=== PATIENT | female | born 1945 | race Caucasian/White ===

== ENCOUNTER → 2022-11-12 10:48 | Outpatient (BNVA) | payer OTHER, SELFPAY | PROVIDERS: PCP Family Medicine Adult Medicine; Visit Provider Internal Medicine Cardiovascular Disease | DX: R07.9 Chest pain, unspecified (principal); I48.92 Unspecified atrial flutter; J44.9 Chronic obstructive pulmonary disease, unspecified; I31.39 Other pericardial effusion (noninflammatory); I50.30 Unspecified diastolic (congestive) heart failure; I10 Essential (primary) hypertension; I11.0 Hypertensive heart disease with heart failure; Z87.891 Personal history of nicotine dependence | CPT/HCPCS: 36415; 80048; 83880; 84443; 93005; 99205 ==

== ENCOUNTER 2022-11-16 15:46 | Outpatient (CLI) | payer OTHER, SELFPAY ==
--- NOTE | 2022-11-16 16:02 | XR_ITS ---
WS: [id number] Exam: XR lumbar spine f/e only [id number] Date/Time of Exam: 11/16/2022 4:02 PM Reason For Exam: Postlaminectomy No priors. There is posterior fusion of the spine extending from L3-L5. Pedicle screws and posterior rods are in place. There is also an anterior fusion plate at the L4-5 level. 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 Disc calcifications at multiple levels. Degeneration of the L1-2 disc. There is virtually no motion of the lumbar spine on flexion or extension views. No instability demonstrate d. IMPRESSION: 1. Posterior fusion extending from L3-L5. The fusion appears to be in satisfactory alignment and stab le. Anterior fusion plate also seen at the L4-5 level. 2. 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 Ad ditional chronic findings as above.
== END 2022-11-16 15:47 | disposition home or self-care (01) ==
PROVIDERS: PCP Family Medicine Adult Medicine; Visit Provider Nurse Practitioner
DX: M96.1 Postlaminectomy syndrome, not elsewhere classified (principal); Z98.1 Arthrodesis status; M43.26 Fusion of spine, lumbar region
CPT/HCPCS: 72120

== ENCOUNTER 2022-12-17 14:39 | Outpatient (CLI) | payer MEDICARE, OTHER, SELFPAY ==
--- NOTE | 2022-12-17 15:00 | USCV_ITS ---
Venice Sharpe Age: 76 Gender: F : 1945 Exam Date: 12/17/2022 14:55 Ordering Phys: Samina Levine MD ([email or web address]) Technologist: Aidan Nazario Exam Location: [facility] [place] Indication: htn BP: 110 / 65 HR: 74 Rhythm: Sinus Technical Quality: Adequate MEASUREMENTS (Male / Female) Normal Values 2D ECHO LV Diastolic Diameter PLAX 2.9 cm 4.2 - 5.9 / 3.9 - 5.3 cm LV Systolic Diameter PLAX 1.6 cm IVS Diastolic Thickness 1.3 cm 0.6 - 1.0 / 0.6 - 0.9 cm IVS Systolic Thickness 1.7 cm LVPW Diastolic Thickness 1.5 cm 0.6 - 1.0 / 0.6 - 0.9 cm LVPW Systolic Thickness 1.1 cm LVOT Diameter 2.0 cm LV Ejection Fraction 2D Teich 79.4 % LV Ejection Fraction MOD 2C 80.0 % LV Ejection Fraction 2C AL 79.8 % LA Diameter 3.5 cm IVC Diameter 2.4 cm M-MODE Aortic Annulus Diameter 2.8 cm LA Ao Ratio MM 1.2 MV E Point Septal Separation 0.7 cm DOPPLER AV Peak Velocity 183.0 cm/s LVOT Peak Velocity 151.0 cm/s AV Area Cont Eq vti 3.8 cm squared AV Area Cont Eq pk 2.6 cm squared MV Area PHT 2.5 cm squared Mitral E to A Ratio 1.1 MV E' Velocity 47.5 cm/s Mitral E to MV E' Ratio 11.0 Mitral E to LV E' Lateral Ratio 11.1 Mitral E to LV E' Septal Ratio 11.0 TR Peak Velocity 387.0 cm/s TR Peak Gradient 59.9 mmHg TV Peak E Velocity 143.0 cm/s Right Atrial Pressure 15.0 mmHg Pulmonary Artery Systolic Pressu 74.9 mmHg RV Acceleration Time 0.1 s FINDINGS Left Ventricle Normal left ventricular size and systolic function, EF 75 %. Mild to moderate concentric left-ventricular hypertrophy Right Ventricle The right ventricle is normal in size and function. Right Atrium The right atrium is normal in size. Left Atrium The left atrium is normal in size. Mitral Valve Trace mitral valve regurgitation. Thickened mitral valve. Aortic Valve Structurally normal aortic valve without significant sclerosis or stenosis. There is no aortic regurgitation. Tricuspid Valve Trace to mild tricuspid valve regurgitation. Estimated pulmonary artery peak systolic pressure 75mmHg Pulmonic Valve Mild pulmonary valve regurgitation. Pericardium Normal pericardium without effusion. Aorta Normal ascending aorta dimension. IVC Dilated IVC with decreased respiratory variation. CONCLUSIONS Normal left ventricular size and systolic function, EF 75 %. Mild to moderate concentric left-ventricular hypertrophy. Trace mitral valve regurgitation. Thickened mitral valve. Trace to mild tricuspid valve regurgitation. Severe pulmonary hypertension with estimated pulmonary artery peak systolic pressure of 75 mm of Hg. Mild pulmonary valve regurgitation. There is no pericardial effusion. There are no intracardiac masses. No similar previous studies are available for comparison Dr Samina Levine MD FACC (Electronically Signed) Final Date: 17 December 2022 18:18 S
== END 2022-12-17 14:40 | disposition home or self-care (01) ==
PROVIDERS: PCP Family Medicine Adult Medicine; Visit Provider Internal Medicine Cardiovascular Disease
DX: R06.09 Other forms of dyspnea (principal); I51.7 Cardiomegaly; I37.1 Nonrheumatic pulmonary valve insufficiency
CPT/HCPCS: 93306

== ENCOUNTER → 2022-12-28 16:37 | Outpatient (BNVA) | payer MEDICARE, OTHER, SELFPAY | PROVIDERS: PCP Family Medicine Adult Medicine; Visit Provider Internal Medicine Pulmonary Disease | DX: J30.2 Other seasonal allergic rhinitis (principal); R06.02 Shortness of breath; I31.39 Other pericardial effusion (noninflammatory); Z87.891 Personal history of nicotine dependence | CPT/HCPCS: 36415; 82785; 85025; 86003 ==

== ENCOUNTER 2023-04-19 13:27 | Outpatient (CLI) | payer MEDICARE, OTHER, SELFPAY ==
--- NOTE | 2023-04-19 14:00 | CT_ITS ---
WS: [id number] LDCT LUNG CANCER SCREENING HISTORY: Cancer Screen TECHNIQUE: Axial imaging performed from the apices to 1 cm below the costophrenic angles. Coronal and sagittal reformats are submitted with axial MIP series. All CT scans at [facility] use at least one of these dose optimization techniques: automated exposure control; mA and/or kV adjustment per patient size (includes targeted exams where dose is matched to clinical indication); or iterativ e reconstruction. DLP: 51.17 mGy.cm DIvol: Mean CTDIvol: 0.70 (mGy) COMPARISON: None available. Diagnostic quality: Satisfactory Lungs: 5 mm pleural tag posterior LEFT upper lobe. 4 mm noncalcified nodule in the lingula. Thin line ar areas of atelectasis in the lower lung alcantara bilaterally. There is mild breathing motion artifact . Moderate mucus in the posterior trachea. Heart: Moderate cardiomegaly.. Other findings: Moderate atherosclerosis aorta. Pulmonary artery is large. No adenopathy seen on this unenhanced exam. Lymph nodes would be difficult to exclude completely. Cystic mass upper pole RIGHT kidney is incompletely visualized. Thoracic curvature and scoliosis. No destructive bone lesions. Sybil or lumbar spine fusion noted on the grounding engineer localizer. IMPRESSION: CT/CT lung screening [id number] LUNG-RADS: 2-Benign Appearance or Behavior FOLLOW UP: 12 Month: Continue annual screening with LDCT OTHER FINDINGS (S MODIFIER): None.
== END 2023-04-19 13:28 | disposition home or self-care (01) ==
LOC: RAD 13:27
PROVIDERS: PCP Family Medicine Adult Medicine; Visit Provider Internal Medicine Pulmonary Disease
DX: Z12.2 Encounter for screening for malignant neoplasm of respiratory organs (principal); Z87.891 Personal history of nicotine dependence; R91.1 Solitary pulmonary nodule; J98.11 Atelectasis
CPT/HCPCS: 71271

== ENCOUNTER 2023-04-21 13:32 | Outpatient (CLI) | payer MEDICARE, OTHER, SELFPAY ==
[2023-04-21 13:44] VITALS: PULSE 65; RESP 20
[2023-04-21] MEDS: albuterol 2.5 mg/3 mL Neb INHALATION (13:44)
[2023-04-21 13:48] VITALS: PULSE 62
== END 2023-04-21 13:33 | disposition home or self-care (01) ==
LOC: RT 13:33
PROVIDERS: PCP Family Medicine Adult Medicine; Visit Provider Internal Medicine Pulmonary Disease
DX: J43.1 Panlobular emphysema (principal); R94.2 Abnormal results of pulmonary function studies
CPT/HCPCS: 94060; 94729; J7613

== ENCOUNTER 2023-05-07 16:12 | Emergency (ER) | payer MEDICARE, OTHER, SELFPAY ==
--- NOTE | 2023-05-07 16:14 | XRR_ITS ---
PROCEDURE INFORMATION: Exam: XR Left Knee Exam date and time: 05/07/2023 4:49 PM Age: 77 years old Clinical indication: Pain; Knee; Left TECHNIQUE: Imaging protocol: Radiologic exam of the left knee. Views: 3 views. COMPARISON: No relevant prior studies available. FINDINGS: Bones/joints: Osseous structures are intact. Negative for fracture. Mild DJD centered in the medial compartment. Partially visualized intramedullary shreya noted in the femur. Soft tissues: Normal. XR/XR knee LT 3V* [id number] IMPRESSION: No acute findings. Mild DJD centered in the medial compartment.
[2023-05-07 16:19] VITALS: BP 196/73; PULSE 92; RESP 17; TEMP 36.6; O2SAT 90; BMI 18.3
--- NOTE | 2023-05-07 16:57 | W.ED.EXTPRO ---
HPI - Extremity Problem General: Chief complaint: Extremity Injury, Lower Stated complaint: left knee pains Time Seen by Provider: 05/07/23 16:33 Source: patient Mode of arrival: ambulatory Limitations: no limitations History of Present Illness: 77-year-old female states that she had stood up today and felt a pop in her left knee and she has had pain in the left knee since then. States quite painful to try to ambulate she denies any hip or ankle pain. She did not fall. She rates her pain a 4 out of 10 currently. Associated symptoms: Deny chest pain, fever(s) or rash Review of Systems Const: Denies: fever(s) or chills ENMT: Denies: throat pain or dental pain Card: Denies: chest pain Resp: Denies: dyspnea GI: Denies: abdominal pain, nausea, vomiting or diarrhea Musc: Reports: extremity pain; Denies: neck pain or back pain Skin/Breast: Denies: rash Neuro: Denies: headache(s) Psych: Denies: depression PFSH ED PFSH: Medical History Elevated blood pressure reading in office with white coat syndrome, with diagnosis of hypertension CKD (chronic kidney disease) stage 3, GFR 30-59 ml/min Chronic low back pain with right-sided sciatica [facility], Dr. Falcon Hypertension COPD (chronic obstructive pulmonary disease) Asthma Anxiety Oxygen dependent Surgical History History of hip surgery History of ankle surgery History of back surgery Hx of hysterectomy Family History Father No problems noted. Mother Stroke Social History Smoking and tobacco/nicotine status: former use of tobacco/nicotine Quit status (tobacco/nicotine): has quit using Year quit tobacco: 2021 Former quit date comment: 1ppd X 60 years Second hand smoke exposure: No Alcohol intake: former Substance/Drug Use: never Physical Exam Const: COMMON NORMALS: no acute distress, patient oriented x3 and healthy appearing HENMT: COMMON NORMALS: normocephalic and atraumatic HEAD & SCALP: normocephalic and atraumatic Neck/C-Spine: COMMON NORMALS: full ROM and supple Chest: COMMONS NORMALS: normal inspection of the chest Resp: COMMON NORMALS: normal respiratory effort Extremity: COMMON NORMALS: full ROM NARRATIVE EXTREMITY EXAM: Tenderness over left knee no obvious deformity has full range of motion. Neuro: COMMON NORMALS: patient oriented x3, moves all extremities and no focal motor deficits Psych: COMMON NORMALS: mental status grossly normal, Normal thought process present and cooperative THOUGHT PROCESS: Normal thought process present Skin: COMMON NORMALS: no rashes or lesions noted and no wounds GENERAL SKIN EXAM: no rashes or lesions noted Course Vital Signs: Vital signs: Vital Signs Temperature 98 F 05/07/23 16:19 Pulse Rate 92 05/07/23 16:19 Respiratory Rate 17 05/07/23 16:19 Blood Pressure 196/73 05/07/23 16:19 Pulse Oximetry 90 05/07/23 16:19 Oxygen Delivery Me thod Nasal Cannula 05/07/23 16:19 MDM - Extremity (Nontraumatic) Medical Decision Making Patient presents here with left knee pain is likely knee sprain x-ray here showed no fractures exam is benign she is stable for discharge she is follow-up with PCP and return if worsening. She understands agrees to plan. Medical Records I reviewed the patient's medical records. Lab Data I reviewed the patient's lab results. Radiology Impressions Knee X-Ray 05/07/23 16:14 IMPRESSION: No acute findings. Mild DJD centered in the medial compartment. All radiology interpretation(s) finalized by discharge Discharge Plan Discharge Patient Disposition: Home Clinical Impression: Left knee pain Qualifiers: Chronicity: acute Qualified Code(s): M25.562 - Pain in left knee Condition: Stable Prescriptions: No Action cholecalciferol (vitamin D3) 250 mcg (10,000 unit) capsule 250 mcg PO DAILY cyanocobalamin (vitamin B-12) 250 mcg lozenge 250 mcg PO DAILY aspirin 81 mg tablet,delayed release (DR/EC) 81 mg PO DAILY hydrocodone-acetaminophen 10-325 mg tablet 1 tab PO Q6H PRN lisinopril 40 mg tablet 40 mg PO DAILY Qty: 30 5RF Breztri Aerosphere 160-9-4.8 mcg/actuation HFA aerosol inhaler 2 inh inhalation BID fluticasone propionate [Flonase Allergy Relief] 50 mcg/actuation spray,suspension 1 spray intranasal DAILY Qty: 16 6RF Rx Instructions: administer into each nostril guaifenesin 400 mg tablet 400 mg PO TID Qty: 30 0RF (DME) oxygen at 2/L min See Rx Instructions .Route .MEDSUPPLY Qty: 1 11RF Rx Instructions: As directed diazepam 5 mg tablet 5 mg PO ONCE PRN (Reason: procedure) Qty: 2 0RF Rx Instructions: Take 1 hour before the procedure and may repeat 30 to 45 minutes later (DME) Oxygen NC 2-3 L/min See Rx Instructions .Route .MEDSUPPLY Qty: 1 0RF Rx Instructions: As directed furosemide [Lasix] 20 mg tablet 20 mg PO DAILY Qty: 90 3RF potassium chloride 8 mEq tablet extended release 8 meq PO DAILY Qty: 90 3RF amlodipine 10 mg tablet 10 mg PO DAILY Qty: 90 1RF metoprolol tartrate 25 mg tablet 25 mg PO BID 30 Days Qty: 180 3RF prazosin 1 mg capsule 1 mg PO BID Qty: 60 2RF Discharge Orders: Discharge ED (Routine); Ordered 05/07/23 Ordered By: Preethi Springer Referrals: Jj aNranjo MD [Primary Care Provider] - Discharge Diet: Advance as tolerated Discharge Activity: Resume usual activity Patient Instructions: Knee Pain (ED) Coding Level of Care Code ED Machine Stuffer Automatic for Dhruv Benson
[2023-05-07] MEDS: HYDROcodone-acetaminophen 5-325 mg Tablet 1 TAB PO (17:26)
[2023-05-07 17:49] VITALS: BP 184/74; PULSE 82; RESP 16; O2SAT 91
--- NOTE | 2023-05-10 08:52 | DCPLANNER ---
Message was sent to ortho on 05/10/23 at 0822. Clinic to contact patient.
== END 2023-05-07 17:50 | disposition home or self-care (01) ==
PROVIDERS: Emergency Provider Emergency Medicine; PCP Family Medicine Adult Medicine
DX: M25.562 Pain in left knee (principal); Z79.82 Long term (current) use of aspirin; Z87.891 Personal history of nicotine dependence; I12.9 Hypertensive chronic kidney disease with stage 1 through stage 4 chronic kidney disease, or unspecified chronic kidney disease; N18.30 Chronic kidney disease, stage 3 unspecified; J44.9 Chronic obstructive pulmonary disease, unspecified; Z99.81 Dependence on supplemental oxygen
CPT/HCPCS: 73562; 99283

== ENCOUNTER 2023-05-17 06:00 | Outpatient (CLI) | payer MEDICARE, OTHER, SELFPAY | END 2023-05-17 23:59 | disposition home or self-care (01) | LOC: SPT 05-18 08:30 | PROVIDERS: PCP Family Medicine Adult Medicine; Visit Provider Specialist | DX: Z46.89 Encounter for fitting and adjustment of other specified devices (principal); S82.143D Displaced bicondylar fracture of unspecified tibia, subsequent encounter for closed fracture with routine healing; X58.XXXD Exposure to other specified factors, subsequent encounter | CPT/HCPCS: 27532; 97760; 99204; L1832 ==

== ENCOUNTER → 2023-05-17 14:08 | Outpatient (BNVA) | payer MEDICARE, OTHER, SELFPAY | PROVIDERS: PCP Family Medicine Adult Medicine; Referring Provider Emergency Medicine; Visit Provider Specialist | DX: S82.122A Displaced fracture of lateral condyle of left tibia, initial encounter for closed fracture; X58.XXXA Exposure to other specified factors, initial encounter; Z46.89 Encounter for fitting and adjustment of other specified devices; S82.143D Displaced bicondylar fracture of unspecified tibia, subsequent encounter for closed fracture with routine healing; X58.XXXD Exposure to other specified factors, subsequent encounter | CPT/HCPCS: 27532; 73560; 73562; 73565; 97760; 99204; L1832 ==

== ENCOUNTER 2023-05-19 09:43 | Outpatient (CLI) | payer MEDICARE, OTHER, SELFPAY ==
--- NOTE | 2023-05-19 10:00 | CT_ITS ---
WS: [id number] CT LEFT KNEE, NONCONTRAST. HISTORY: left tibial plateau fracture Technique: All CT scans at [facility] use at least one of these dose optimization techniques: automated exposure control; mA and/or kV adjustment per patient size (includes targeted exams where dose is matched to clinical indication); or iterative reconstruction. DLP: 438.50 mGy.cm COMPARISON: 05/17/2023 Diffuse osteopenia. Nonhealed, acute lateral tibial plateau fracture. Tibial plateau fracture is depr essed by approximately 6 mm. Fracture line extends along the lateral tibial plateau into the metaphys is. No significant displacement. Medial plateau is intact. Femoral condyles are intact. There is a distal intramedullary femoral shreya. Moderate size suprapatellar joint effusion is a small a mount of surrounding edema. Proximal fibula is intact. IMPRESSION: 1. Acute, minimally depressed lateral tibial plateau fracture. Mildly comminuted fracture depressed 6 mm. 2. No additional fractures. 3. Moderate joint effusion.
== END 2023-05-19 09:44 | disposition home or self-care (01) ==
LOC: RAD 09:43
PROVIDERS: PCP Family Medicine Adult Medicine; Visit Provider Specialist
DX: S82.142A Displaced bicondylar fracture of left tibia, initial encounter for closed fracture (principal); X58.XXXA Exposure to other specified factors, initial encounter
CPT/HCPCS: 73700

== ENCOUNTER → 2023-06-28 15:04 | Outpatient (BNVA) | payer MEDICARE, OTHER, SELFPAY | PROVIDERS: PCP Family Medicine Adult Medicine; Visit Provider Specialist | DX: S82.122D Displaced fracture of lateral condyle of left tibia, subsequent encounter for closed fracture with routine healing; X58.XXXD Exposure to other specified factors, subsequent encounter | CPT/HCPCS: 73562; 99024 ==

== ENCOUNTER 2023-07-09 15:35 | Outpatient (CLI) | payer MEDICARE, OTHER, SELFPAY ==
--- NOTE | 2023-07-09 16:30 | CT_ITS ---
WS: [id number] NONCONTRAST CT LEFT KNEE TECHNIQUE: Noncontrast CT LEFT knee with coronal and sagittal reformatted images. CLINICAL INFORMATION: pain COMPARISON: 05/19/2023 DLP: 457.[address] scans at [facility] use at least one of these dose optimization techniques: automated e xposure control; mA and/or kV adjustment per patient size (includes targeted exams where dose is matc hed to clinical indication); or iterative reconstruction. FINDINGS: Osteopenia. Distal femoral shreya. Hypertrophic patella. Moderate to advanced tricompartmental arthritis . Previously described joint effusion has improved. Trace residual joint effusion. Again seen is the depressed lateral tibial plateau fracture with some evidence of healing. Small fracture clefts are p ersistent but less prominent today. Tibial plateau depression measures approximately 6 mm unchanged. Associated sclerosis in the posterolateral tibial plateau. Fibula head is normal in appearance. IMPRESSION: 1. Again seen is the posterior lateral tibial plateau fracture with 6 mm of depression which is stab le. 2. Some evidence of interval healing although incomplete compared to previous. Visualized fracture c lefts are persistent but slightly less distinct today. Associated sclerosis in the posterolateral tib ial plateau. 3. Improved joint effusion. 4. No other significant changes.
== END 2023-07-09 15:36 | disposition home or self-care (01) ==
LOC: RAD 15:35
PROVIDERS: PCP Family Medicine Adult Medicine; Visit Provider Specialist
DX: S82.142A Displaced bicondylar fracture of left tibia, initial encounter for closed fracture (principal); M25.462 Effusion, left knee; X58.XXXA Exposure to other specified factors, initial encounter
CPT/HCPCS: 73700

== ENCOUNTER → 2023-07-20 14:44 | Outpatient (BNVA) | payer MEDICARE, OTHER, SELFPAY | PROVIDERS: PCP Family Medicine Adult Medicine; Visit Provider Student in an Organized Health Care Education/Training Program | DX: S82.123A Displaced fracture of lateral condyle of unspecified tibia, initial encounter for closed fracture (principal); X58.XXXA Exposure to other specified factors, initial encounter; Z79.899 Other long term (current) drug therapy | CPT/HCPCS: 99213 ==

== ENCOUNTER → 2023-09-15 14:56 | Outpatient (BNVA) | payer MEDICARE, OTHER, SELFPAY | PROVIDERS: PCP Family Medicine Adult Medicine; Visit Provider Nurse Practitioner | DX: S82.122A Displaced fracture of lateral condyle of left tibia, initial encounter for closed fracture; X58.XXXA Exposure to other specified factors, initial encounter | CPT/HCPCS: 73562; 99213 ==

== ENCOUNTER → 2024-02-03 11:06 | Outpatient (BNVA) | payer MEDICARE, OTHER, SELFPAY | PROVIDERS: PCP Family Medicine Adult Medicine; Visit Provider Internal Medicine Cardiovascular Disease | DX: R06.02 Shortness of breath (principal) | CPT/HCPCS: 36415; 80048; 83880; 99214 ==

== ENCOUNTER 2024-02-18 16:08 | Inpatient (IN) | payer MEDICARE, OTHER, SELFPAY ==
[2024-02-18] VITALS (12 sets, daily range): BP systolic 103–150; BP diastolic 36–86; PULSE 57–73; RESP 13–31; TEMP 36.4–36.7; O2SAT 89–99
--- NOTE | 2024-02-18 16:47 | XRR_ITS ---
PROCEDURE INFORMATION: Exam: XR Chest Exam date and time: 02/18/2024 5:20 PM Age: 78 years old Clinical indication: Shortness of breath; Patient HX: SOB; AMS; Afib; Chf TECHNIQUE: Imaging protocol: Radiologic exam of the chest. Views: 1 view. COMPARISON: CT lung screening [id number] 04/19/2023 1:47 PM FINDINGS: Lungs: Left basilar scarring. Calcified granuloma noted in the left mid lung. No consolidation. Pleural spaces: No pleural effusion. No pneumothorax. Heart/Mediastinum: No cardiomegaly. Bones/joints: Visualized osseous structures are intact. XR/XR chest 1V portable [id number] IMPRESSION: No acute findings.
--- NOTE | 2024-02-18 16:51 | ED_ITS ---
HPI - SOB/Dyspnea 2 General: Chief Complaint: Shortness of Breath/Dyspnea Stated Complaint: SOB, AMS Time Seen by Provider: 02/18/24 16:43 History of Present Illness: HPI Narrative: Patient comes to the ER with reports of having a hard time getting woken up this morning. Having weakness and jerking of extremities. Patient states that she took gabapentin 300 mg last night for the first time for restless leg. Had symptoms this morning. Family is at bedside and a also stated that she been taken off her potassium and had her Lasix doubled and also had her oxygen increase from 3.5 L to 6 L because of desaturation with activities. Patient goes sees Dr. Neely at [facility]. Related Data Home Medications Medication Instructions Recorded Confirmed aspirin 81 mg tablet,delayed 81 mg PO DAILY 11/06/22 09/16/23 release cholecalciferol (vitamin D3) 250 250 mcg PO DAILY 11/06/22 09/16/23 mcg (10,000 unit) capsule cyanocobalamin (vitamin B-12) 250 250 mcg PO DAILY 11/06/22 09/16/23 mcg lozenges hydrocodone 10 mg-acetaminophen 1 tab PO Q6H PRN 11/06/22 09/16/23 325 mg tablet budesonide 160 mcg-glycopyr 9 2 inh inhalation BID 12/28/22 09/16/23 mcg-formot 4.8 mcg/actuation HFA inhaler (Breztri Aerosphere) prazosin 1 mg capsule 1 mg PO DAILY PRN 08/03/23 09/16/23 Previous Rx's Medication Instructions Recorded Oxygen NC 2-3 L/min #1 ea 11/12/22 oxygen at 2/L min #1 ea 12/09/22 metoprolol tartrate 25 mg tablet 25 mg PO BID 30 days #180 tabs 03/30/23 GELY KNEE BRACE #1 ea 05/17/23 Wheel Chair #1 ea 05/21/23 guaifenesin 400 mg tablet 400 mg PO TID PRN cough/congestion 06/22/23 #30 tabs lisinopril 40 mg tablet 40 mg PO DAILY High blood pressure 06/29/23 #90 tabs Hinged Knee Brace #1 ea 07/20/23 [id number]-rxeiossmr-sodium 1 ea mucous membrane .q4 PRN dry 08/03/23 bicarbonate mucosal gel mouth #100 mL metronidazole 500 mg tablet 500 mg PO BID diarrhea #14 tabs 09/17/23 potassium chloride 8 mEq 8 meq PO DAILY #90 tabs 11/26/23 tablet,extended release amlodipine 10 mg tablet 10 mg PO DAILY high blood pressure 12/09/23 #90 tabs furosemide 20 mg tablet (Lasix) 20 mg PO DAILY #90 tabs 12/09/23 Allergies Allergy/AdvReac Type Severity Reaction Status Date / Time No Known Allergies Allergy Verified 02/18/24 16:23 Review of Systems 2 General: Reports: 10 or more systems reviewed and unremarkable except in HPI and below PFSH ED 2 PFSH: Medical History Asymptomatic bradycardia C. difficile diarrhea Bilateral shoulder pain CKD (chronic kidney disease) stage 3, GFR 30-59 ml/min Chronic low back pain with right-sided sciatica [facility], Dr. Falcon Hypertension COPD (chronic obstructive pulmonary disease) Asthma Anxiety Oxygen dependent Surgical History History of hip surgery History of ankle surgery History of back surgery Hx of hysterectomy Family History Father No problems noted. Mother Stroke Social History Smoking and tobacco/nicotine status: former use of tobacco/nicotine Quit status (tobacco/nicotine): has quit using Year quit tobacco: 2021 Former quit date comment: 1ppd X 60 years Second hand smoke exposure: No Alcohol intake: former Substance/Drug Use: never Physical Exam 2 Const: COMMON NORMALS: no acute distress, average body habitus, patient oriented x3, no limitations, healthy appearing, alert and well nourished HENMT: COMMON NORMALS: normocephalic, atraumatic, hearing grossly normal bilaterally, external ears normal, Normal external nose present and moist oral mucous membranes HEAD & SCALP: normocephalic and atraumatic NOSE: Normal external nose present EXTERNAL EAR: Yes external ears normal Eye: COMMON NORMALS: Equal, round and reactive pupils present, EOMs intact bilaterally, conjunctivae normal and no scleral icterus CONJUNCTIVA: Yes conjunctivae normal PUPIL: Yes Equal, round and reactive pupils present Neck/C-Spine: COMMON NORMALS: no JVD Chest: COMMONS NORMALS: normal inspection of the chest and normal palpation of entire chest wall Resp: COMMON NORMALS: normal respiratory effort, No retractions and No use of accessory muscles; negative for clear to auscultation bilaterally (Clear with decreased breath sounds bilateral) AUSCULTATION: not clear to auscultation bilaterally (Clear with decreased breath sounds bilateral) Cardio: COMMON NORMALS: no JVD, regular rate, regular rhythm, S1 normal heart sound present, S2 normal heart sound present, No gallops present (Cardio), No clicks present (Cardio), No murmurs present (Cardio) and No rub (Cardio) R ATE: regular rate RHYTHM: regular rhythm HEART SOUNDS: S1 normal heart sound present and S2 normal heart sound present GI: COMMON NORMALS: Normal to inspection, nondistended, normoactive bowel sounds present, Soft to palpation, non-tender, No hepatosplenomegaly present and no masses PALPATION: Yes Soft to palpation and Yes No hepatosplenomegaly present Extremity: NARRATIVE EXTREMITY EXAM: Negative bilateral pretibial edema Neuro: COMMON NORMALS: patient oriented x3 SENSORIUM/ORIENTATION: Yes alert Course 2 Vital Signs: Vital signs: Vital Signs Temperature 97.6 F 02/18/24 16:12 Pulse Rate 65 02/18/24 20:00 Respiratory Rate 20 H 02/18/24 20:00 Blood Pressure 126/45 02/18/24 20:00 Pulse Oximetry 95 02/18/24 20:00 Oxygen Delivery Me thod Nasal Cannula 02/18/24 20:00 Oxygen Flow Rate 6 02/18/24 20:00 MDM - SOB/Dyspnea Medical Decision Making Cussed case with family Dr. Tenorio we will admit patient to [facility] for additional hydration, we will obtain a D-dimer and a chest abdomen pelvis noncontrast CT scan pending those results before admission. Elevated BNP at 1383, BUN/creatinine 67 and 4.4, potassium 6.0, Medical Records I reviewed the patient's medical records. Lab Data I reviewed the patient's lab results. 02/18/24 17:30 02/18/24 21:07 Labs/Radiology: Radiology Impressions Chest X-Ray 02/18/24 16:47 IMPRESSION: No acute findings. Chest/Abdomen/Pelvis CT 02/18/24 20:12 IMPRESSION: 1. Coronary artery and aortic atherosclerotic calcifications. 2. Cardiomegaly. 3. Emphysematous changes. 4. Right lower lobe 17 mm somewhat focal nodular density increase compared IMPRESSION: 1. Prominent fluid in the stomach and small bowel, please correlate for a gastroenteritis. 2. Lumbar spine surgical hardware. 3. Left proximal femur surgical hardware. 4. Bilateral punctate nonobstructing renal calyceal stones. 5. Bilateral renal cysts, negative for follow-up advised. 6. Proximal renal artery atherosclerotic disease bilaterally with 60-70% luminal narrowing. COMMENTS: Consistent with the [employer]'s Incidental Findings Committee white paper (J Am Cassidy Radiol 2018): Any incidental renal lesion less than 1 cm or classified as too small to characterize, or any incidental cystic renal lesion characterized as simple-appearing, is likely benign. No follow-up imaging is recommended for these lesions per consensus recommendations based on imaging criteria. Laboratory Results WBC 7.36 10^3/uL (3.29-11.43) 02/18/24 17:30 RBC 2.91 10^6/uL (3.85-5.65) L 02/18/24 17:30 Hgb 8.40 g/dL (11.27-16.99) L 02/18/24 17:30 Hct 30.4 % (36-47) L 02/18/24 17: MCV 104.5 fl (85-98) H 02/18/24 17:30 MCH 28.9 pg (27-33) 02/18/24 17:30 MCHC 27.6 g/dL (30-55) L 02/18/24 17:30 RDW 14.9 % (12.1-15.1) 02/18/24 17:30 Plt Count 149 10^3/cmm (157-399) L 02/18/24 17:30 MPV 11.3 fL (7.4-10.4) H 02/18/24 17:30 Neut % (Auto) 87.1 % 02/18/24 17:30 Lymph % (Auto) 2.6 % 02/18/24 17:30 [place] % (Auto) 7.1 % 02/18/24 17:30 Eos % (Auto) 2.2 % 02/18/24 17:30 Baso % (Auto) 0.3 % 02/18/24 17:30 Neut # (Auto) 6.42 10^3/uL (1.8-7.7) 02/18/24 17:30 Lymph # (Auto) 0.2 10^3/uL (0.8-4.8) L 02/18/24 17:30 [place] # (Auto) 0.5 10^3/uL (0.2-0.9) 02/18/24 17:30 Eos # (Auto) 0.2 10^3/uL (0.0-0.8) 02/18/24 17:30 Baso # (Auto) 0.0 10^3/uL (0.0-0.1) 02/18/24 17:30 Nucleated RBC % (auto) 0 % 02/18/24 17:30 Nucleated RBCs # 0.0 /100WBC 02/18/24 17:30 APTT 29.3 SECONDS (23.9-36.7) 02/18/24 17:30 D-Dimer 7.99 ug/mLFEU (0-0.59) H 02/18/24 17:30 Sodium 141 mmol/L (136-145) 02/18/24 17:30 Potassium 6.0 mmol/L (3.5-5.1) H 02/18/24 17:30 Chloride 105 mmol/L (98-107) 02/18/24 17:30 Carbon Dioxide 29 mmol/L (22-29) 02/18/24 17:30 Anion Gap 13.0 (5-19) 02/18/24 17:30 BUN 67 mg/dL (8-23) H 02/18/24 17:30 Creatinine 4.4 mg/dL (0.5-0.9) H 02/18/24 17:30 GFR Calculation Not Reportable 02/18/24 17:30 Glucose 46 mg/dL (65-115) L 02/18/24 21:07 POC Glucose 177 mg/dL (70-110) H 02/18/24 21:28 Calculated Osmolality 314 mOsm/kg (285-295) H 02/18/24 17:30 Lactic Acid 1.3 mmol/L (0.5-2.2) 02/18/24 17:30 Calcium 10.0 mg/dL (8.5-10.5) 02/18/24 17:30 Magnesium 2.0 mg/dL (1.7-2.3) 02/18/24 17:30 Total Bilirubin 0.2 mg/dL (0.15-1.2) 02/18/24 17:30 AST 9 U/L (0-32) 02/18/24 17:30 ALT 6 U/L (0-33) 02/18/24 17:30 Alkaline Phosphatase 59 U/L (35-105) 02/18/24 17:30 Troponin T Baseline 60 ng/L (0-10) H 02/18/24 17:30 Troponin T 120 Minute 52.27 ng/L (0-10) H 02/18/24 19:26 Delta Troponin T -7.73 ABS# (0-10) L 02/18/24 19:26 NT-Pro-B Natriuret Pep 1383 pg/mL (0-450) H 02/18/24 17:30 Total Protein 6.3 g/dL (6.6-8.7) L 02/18/24 17:30 Albumin 3.9 g/dL (3.5-5.2) 02/18/24 17:30 Globulin 2.4 g/dL (1.3-4.6) 02/18/24 17:30 Procalcitonin 0.20 ng/mL (0-0.5) 02/18/24 17:30 All radiology interpretation(s) finalized by discharge Discharge Plan Discharge Patient Disposition: Admitted As Inpatient Clinical Impression: Acute hyperkalemia, Acute and chronic respiratory failure with hypoxia Acute on chronic renal failure Qualifiers: Acute renal failure type: unspecified Chronic kidney disease stage: unspecified stage Qualified Code(s): N17.9 - Acute kidney failure, unspecified Condition: Stable Coding Level of Care Code ED Type Disk Quality Control Supervisor for Dhruv Benson
[2024-02-18 17:39] LABS: Basophils % 0.3 %; Eosinophils # 0.2 10^3/uL (0.0-0.8); Eosinophils % 2.2 %; Hematocrit 30.4 % (36-47); Lymphocytes # 0.2 10^3/uL (0.8-4.8); Lymphocytes % 2.6 %; Mean Corpuscular HGB Conc 27.6 g/dL (30-55); Mean Corpuscular Hemoglobin 28.9 pg (27-33); Mean Corpuscular Volume 104.5 fl (85-98); Mean Platelet Volume 11.3 fL (7.4-10.4); Monocytes # 0.5 10^3/uL (0.2-0.9); Monocytes % 7.1 %; Neutrophils # 6.42 10^3/uL (1.8-7.7); Neutrophils % 87.1 %; Nucleated Red Blood Cells % 0 %; Platelet Count 149 10^3/cmm (157-399); Red Blood Count 2.91 10^6/uL (3.85-5.65); Red Cell Distribution Width 14.9 % (12.1-15.1); White Blood Count 7.36 10^3/uL (3.29-11.43)
--- NOTE | 2024-02-18 17:46 | ECG_ITS ---
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 Measurements Intervals [place] Rate: 74 P: 0 TX: 0 QRS: 43 QRSD: 92 T: 89 QT: 365 QTc: 405 Interpretive Statements ATRIAL FIBRILLATION Q WAVES IN INFERIOR LEADS WITH NON SPECIFIC ST T WAVE CHANGES IN INFERIOR LEADS Electronically Signed On 02-19-2024 10:26:04 GASOLINE PUMP MECHANIC by Rufino Franklin M.D. [id number]
[2024-02-18 18:03] LABS: Alanine Aminotransferase 6 U/L (0-33); Albumin Level 3.9 g/dL (3.5-5.2); Alkaline Phosphatase 59 U/L (35-105); Aspartate Amino Transferase 9 U/L (0-32); Blood Urea Nitrogen 67 mg/dL (8-23); Carbon Dioxide 29 mmol/L (22-29); Chloride 105 mmol/L (98-107); Creatinine Clr Calc Pharmacy 7.8716; Globulin 2.4 g/dL (1.3-4.6); Glucose 149 mg/dL (65-115); NT Pro B Type Natriuretic Pept 1383 pg/mL (0-450); Osmolality Calculated 314 mOsm/kg (285-295); Sodium 141 mmol/L (136-145); Total Bilirubin 0.2 mg/dL (0.15-1.2); Total Protein 6.3 g/dL (6.6-8.7)
--- NOTE | 2024-02-18 18:11 | ECG_ITS ---
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 Measurements Intervals [place] Rate: 63 P: 64 IA: 170 QRS: 76 QRSD: 90 T: 81 QT: 361 QTc: 371 Interpretive Statements SINUS RHYTHM WITH OCCASIONAL SUPRAVENTRICULAR PREMATURE COMPLEXES Compared to ECG 02/18/2024 17:46:34 Atrial fibrillation no longer present ST (T wave) deviation no longer present Myocardial infarct finding no longer present Electronically Signed On 02-20-2024 19:09:36 RESPIRATORY CARE PROGRAM DIRECTOR by Rufino Franklin M.D. [email or web address]
[2024-02-18 18:17] LABS: Troponin(5th) Baseline 60 ng/L (0-10)
[2024-02-18] MEDS: calcium chloride 10% Syr 10 mL 1 GM IVP (18:24)
--- NOTE | 2024-02-18 18:33 | PC.NURSE ---
Insulin 10 units ordered @1808; Dextrose ordered @1808 delayed d/t pt glucose of 149 and Dextrose not being verified by pharmacy. Attempted to called pharmacy x2 times, ER charge attempted to call pharmacy x2 times, no answer. Attempted to call UC with no answer as well. Dr. Lazo aware.
[2024-02-18] MEDS: dextrose 10% 250 ML 1000 ML IV ×2 (18:46→21:10)
--- NOTE | 2024-02-18 18:58 | ECG_ITS ---
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 Measurements Intervals [place] Rate: 67 P: 60 CT: 179 QRS: 76 QRSD: 81 T: 79 QT: 340 QTc: 360 Interpretive Statements SINUS RHYTHM Compared to ECG 02/18/2024 18:11:26 No significant changes Electronically Signed On 02-20-2024 19:09:16 ADVERTISING TRAFFIC MANAGER by Rufino Franklin M.D. [id number]
[2024-02-18] MEDS: insulin regular-human 100 units/1 mL 10 UNIT IVP (19:19)
[2024-02-18 19:54] LABS: Troponin 5 2HR 52.27 ng/L (0-10)
[2024-02-18 19:56] LABS: Troponin 5 2HR Delta -7.73 ABS# (0-10)
--- NOTE | 2024-02-18 20:12 | CTR_ITS ---
PROCEDURE INFORMATION: Exam: CT Chest Without Contrast; Diagnostic Exam date and time: 02/18/2024 8:40 PM Age: 78 years old Clinical indication: Shortness of breath; Prior surgery; Surgery date: 6+ months; Surgery type: Hysterectomy. Lumbar fusion. Left hip; Patient HX: C/O general weakness with SOB. Hypoxic, anemic, hyperkalemic, with shaw. ; Additional info: Anemia, hyperkalemia, acute renal failure hypoxia TECHNIQUE: Imaging protocol: Diagnostic computed tomography of the chest without contrast. Radiation optimization: All CT scans at this facility use at least one of these dose optimization techniques: automated exposure control; mA and/or kV adjustment per patient size (includes targeted exams where dose is matched to clinical indication); or iterative reconstruction. COMPARISON: CT lung screening [id number] 04/19/2023 1:47 PM RADIATION DOSE METRICS: Total DLP (mGy-cm): 411.01 FINDINGS: Lungs: Emphysematous changes. Right lower lobe 17 mm somewhat focal nodular density increase compared to prior exam. Bibasilar atelectasis. Pleural spaces: Unremarkable. No pneumothorax. No pleural effusion. Heart: Cardiomegaly. Lymph nodes: Unremarkable. No enlarged lymph nodes. Vasculature: Coronary artery and aortic atherosclerotic calcifications. Bones/joints: Unremarkable. No acute fracture. Soft tissues: Unremarkable. to prior exam. Consider non-emergent PET/CT or tissue sampling.(Reference: Junito) 5. Bibasilar atelectasis. REFERENCES: Junito Barlow, et al. Guidelines for Management of Incidental Pulmonary Nodules Detected on CT Images: From the Fleischner Society 2017. Radiology. 2017;284(1):228-243. PROCEDURE INFORMATION: Exam: CT Abdomen And Pelvis Without Contrast Exam date and time: 02/18/2024 8:40 PM Age: 78 years old Clinical indication: Shortness of breath; Prior surgery; Surgery date: 6+ months; Surgery type: Hysterectomy. Lumbar fusion. Left hip; Patient HX: C/O general weakness with SOB. Hypoxic, anemic, hyperkalemic, with shaw. ; Additional info: Anemia, hyperkalemia, acute renal failure hypoxia TECHNIQUE: Imaging protocol: Computed tomography of the abdomen and pelvis without contrast. Radiation optimization: All CT scans at this facility use at least one of these dose optimization techniques: automated exposure control; mA and/or kV adjustment per patient size (includes targeted exams where dose is matched to clinical indication); or iterative reconstruction. COMPARISON: CT lung screening [id number] 04/19/2023 1:47 PM RADIATION DOSE METRICS: Total DLP (mGy-cm): 411.01 FINDINGS: Liver: Normal. No mass. Gallbladder and biliary ducts: Normal. No calcified stones. No ductal dilation. Pancreas: Normal. No ductal dilation. Spleen: Normal. No splenomegaly. Adrenal glands: Normal. No mass. Kidneys and ureters: Bilateral punctate nonobstructing renal calyceal stones. Bilateral renal cysts, negative for follow-up advised. Stomach and bowel: Prominent fluid in the stomach and small bowel, please correlate for a gastroenteritis. Appendix: No evidence of appendicitis. Intraperitoneal space: Unremarkable. No free air. No significant fluid collection. Vasculature: Proximal renal artery atherosclerotic disease bilaterally with 60-70% luminal narrowing. Lymph nodes: Unremarkable. No enlarged lymph nodes. Urinary bladder: Unremarkable as visualized. Reproductive: Unremarkable as visualized. Bones/joints: Lumbar spine surgical hardware. Left proximal femur surgical hardware. Soft tissues: Unremarkable. CT/[place] [id number] IMPRESSION: 1. Coronary artery and aortic atherosclerotic calcifications. 2. Cardiomegaly. 3. Emphysematous changes. 4. Right lower lobe 17 mm somewhat focal nodular density increase compared IMPRESSION: 1. Prominent fluid in the stomach and small bowel, please correlate for a gastroenteritis. 2. Lumbar spine surgical hardware. 3. Left proximal femur surgical hardware. 4. Bilateral punctate nonobstructing renal calyceal stones. 5. Bilateral renal cysts, negative for follow-up advised. 6. Proximal renal artery atherosclerotic disease bilaterally with 60-70% luminal narrowing. COMMENTS: Consistent with the [employer]'s Incidental Findings Committee white paper (J Am Cassidy Radiol 2018): Any incidental renal lesion less than 1 cm or classified as too small to characterize, or any incidental cystic renal lesion characterized as simple-appearing, is likely benign. No follow-up imaging is recommended for these lesions per consensus recommendations based on imaging criteria.
[2024-02-18 20:35] LABS: D Dimer 7.99 ug/mLFEU (0-0.59)
[2024-02-18 20:52] LABS: Lactic Sepsis W/Reflex 1.3 mmol/L (0.5-2.2)
[2024-02-18] MEDS: heparin 5,000 unit/mL INJ 1 mL IVP (21:17)
[2024-02-18] MEDS: sodium polystyrene sulfonate 15 gm/60 mL Btl PO (21:17)
[2024-02-18 21:25] LABS: Partial Thromboplastin Time 29.3 SECONDS (23.9-36.7)
--- NOTE | 2024-02-18 21:29 | PC.NURSE ---
THis RN rechecked pt FSBS secondary to insulin given. FSBS initially read 49. REcheck was 60. Verification drawn and sent to lab. Pt treated with D10. Repeat FSBS after D10 was 177. Pt denied any s/sx with any of it. Pt remained alert and oriented. Skin was w/p/d. Pt was in NAD.
[2024-02-18 21:35] LABS: Glucose Point of Care 49 mg/dL (70-110)
[2024-02-18 21:35] LABS: Glucose Point of Care 60 mg/dL (70-110)
[2024-02-18 21:35] LABS: Glucose Point of Care 177 mg/dL (70-110)
[2024-02-18 21:46] LABS: Glucose 46 mg/dL (65-115)
--- NOTE | 2024-02-18 22:00 | PM.HP ---
Providers/Chief Complaint Admitting Physician: Lopez Lai MD Primary Care Provider: Jj Naranjo MD Chief Complaint: SOB, AMS History of Present Illness Venice Doe is a 78 year old female with PMH COPD, h/o recurrent large pericardial effusion s/p window and pericardial biopsy last in 2018, severe pulmonary HTN, ERICKA, HTN, chronic multiple joint pain, h/o tibial plateau fracture in July 2023 managed conservatively. She has been experiencing increased shortness of breath over the past 3 weeks, which is progressively worsening. She has had swelling in her legs previously, but today she appears dehydrated. Her 02 requirement has been increasing from 2lpm to 3/5 lpm over the past few months. She recently followed with cardiology as outpatient when potassium supplemenattion was stopped due to hyperkalemia and lasix dose was doubled. She comes to the ER today as she was noted by her family to be very somnolent and weaker than at baseline. She started new medication by way of gabapentin 300mg daily. At time of this assessment she is somnolent, however wakes up easily to touch and talking in a loud voice. She is able to state her name, age but needs reorientation as to her surroundings. She is unable to relay much history other than feeling very weak ove rthe past few weeks. Review of Systems General: Reports: ROS unobtainable due to medical condition and ROS unobtainable due to mental status Medications/Allergies Home Medications Medication Instructions Recorded Confirmed Last Taken Type aspirin 81 mg tablet,delayed 81 mg PO DAILY 11/06/22 09/16/23 Unknown History release cholecalciferol (vitamin D3) 250 250 mcg PO DAILY 11/06/22 09/16/23 Unknown History mcg (10,000 unit) capsule cyanocobalamin (vitamin B-12) 250 250 mcg PO DAILY 11/06/22 09/16/23 Unknown History mcg lozenges hydrocodone 10 mg-acetaminophen 1 tab PO Q6H PRN 11/06/22 09/16/23 Unknown History 325 mg tablet Oxygen NC 2-3 L/min #1 ea 11/12/22 09/16/23 Unknown Rx oxygen at 2/L min #1 ea 12/09/22 09/16/23 Unknown Rx budesonide 160 mcg-glycopyr 9 2 inh inhalation BID 12/28/22 09/16/23 Unknown History mcg-formot 4.8 mcg/actuation HFA inhaler (Breztri Aerosphere) metoprolol tartrate 25 mg tablet 25 mg PO BID 30 days #180 tabs 03/30/23 09/16/23 Unknown Rx GELY KNEE BRACE #1 ea 05/17/23 09/16/23 Unknown Rx Wheel Chair #1 ea 05/21/23 09/16/23 Unknown Rx guaifenesin 400 mg tablet 400 mg PO TID PRN cough/congestion 06/22/23 09/16/23 Unknown Rx #30 tabs lisinopril 40 mg tablet 40 mg PO DAILY High blood pressure 06/29/23 09/16/23 Unknown Rx #90 tabs Hinged Knee Brace #1 ea 07/20/23 09/16/23 Unknown Rx prazosin 1 mg capsule 1 mg PO DAILY PRN 08/03/23 09/16/23 Unknown History bqmaphu-cqapwa-pxqafwbdz-sodium 1 ea mucous membrane .q4 PRN dry 08/03/23 09/16/23 Unknown Rx bicarbonate mucosal gel mouth #100 mL metronidazole 500 mg tablet 500 mg PO BID diarrhea #14 tabs 09/17/23 Unknown Rx potassium chloride 8 mEq 8 meq PO DAILY #90 tabs 11/26/23 Unknown Rx tablet,extended release amlodipine 10 mg tablet 10 mg PO DAILY high blood pressure 12/09/23 Unknown Rx #90 tabs furosemide 20 mg tablet (Lasix) 20 mg PO DAILY #90 tabs 12/09/23 Unknown Rx Allergies Allergy/AdvReac Type Severity Reaction Status Date / Time No Known Allergies Allergy Verified 02/18/24 16:23 PFSH Acute PFSH: Medical History Asymptomatic bradycardia C. difficile diarrhea Bilateral shoulder pain CKD (chronic kidney disease) stage 3, GFR 30-59 ml/min Chronic low back pain with right-sided sciatica [facility], Dr. Falcon Hypertension COPD (chronic obstructive pulmonary disease) Asthma Anxiety Oxygen dependent Surgical History History of hip surgery History of ankle surgery History of back surgery Hx of hysterectomy Family History Father No problems noted. Mother Stroke Social History Smoking and tobacco/nicotine status: former use of tobacco/nicotine Quit status (tobacco/nicotine): has quit using Year quit tobacco: 2021 Former quit date comment: 1ppd X 60 years Second hand smoke exposure: No Alcohol intake: former Substance/Drug Use: never Vitals/I&O/Wt Last Vital Signs Temp 97.7 F 02/18/24 23:51 Pulse 57 L 02/18/24 23:51 Resp 13 02/18/24 23:51 BP 118/36 02/18/24 23:51 Pulse Ox 99 02/18/24 23:51 O2 Del Method Nasal Cannula 02/18/24 23:03 O2 Flow Rate 6 02/18/24 22:30 02/18/24 02/18/24 02/19/24 14:59 22:59 06:59 Intake Total 500 / 500 Balance 500 / 500 Weight last 48 hrs Weight 46.811 kg Weight 43.148 kg Physical Exam Narrative: General: No acute distress,somnolent, wakes up easily , AO x2, chronically ill appearing HEENT: PERRLA, pupils bilaterally equal and reactive, pallors not present Chest: Normal vesicular breath sounds, no added sounds, equal good air entry bilaterally CVS: S1-S2 regular, no murmurs, no tachycardia, no gallops, no rubs Abdomen: Soft, nontender, no organomegaly, bowel sounds present Neuro: No focal deficits, no facial deformity, AO x2 Data 02/19/24 01:08 02/19/24 01:08 Micro: Microbiology 02/18/24 21:07 Blood Culture - Preliminary Blood SPECIMEN COLLECTED 02/18/24 21:04 Blood Culture - Preliminary Blood SPECIMEN COLLECTED Other data: Radiology Impressions Chest X-Ray 02/18/24 16:47 IMPRESSION: No acute findings. Chest/Abdomen/Pelvis CT 02/18/24 20:12 IMPRESSION: 1. Coronary artery and aortic atherosclerotic calcifications. 2. Cardiomegaly. 3. Emphysematous changes. 4. Right lower lobe 17 mm somewhat focal nodular density increase compared IMPRESSION: 1. Prominent fluid in the stomach and small bowel, please correlate for a gastroenteritis. 2. Lumbar spine surgical hardware. 3. Left proximal femur surgical hardware. 4. Bilateral punctate nonobstructing renal calyceal stones. 5. Bilateral renal cysts, negative for follow-up advised. 6. Proximal renal artery atherosclerotic disease bilaterally with 60-70% luminal narrowing. COMMENTS: Consistent with the [place] [employer]'s Incidental Findings Committee white paper (J Am Cassidy Radiol 2018): Any incidental renal lesion less than 1 cm or classified as too small to characterize, or any incidental cystic renal lesion characterized as simple-appearing, is likely benign. No follow-up imaging is recommended for these lesions per consensus recommendations based on imaging criteria. Laboratory Results WBC 7.09 10^3/uL (3.29-11.43) 02/19/24 01:08 RBC 2.81 10^6/uL (3.85-5.65) L 02/19/24 01:08 Hgb 8.20 g/dL (11.27-16.99) L 02/19/24 01:08 Hct 29.1 % (36-47) L 02/19/24 01:08 MCV 103.6 fl (85-98) H 02/19/24 01:08 MCH 29.2 pg (27-33) 02/19/24 01:08 MCHC 28.2 g/dL (30-55) L 02/19/24 01:08 RDW 14.8 % (12.1-15.1) 02/19/24 01:08 Plt Count 144 10^3/cmm (157-399) L 02/19/24 01:08 MPV 11.3 fL (7.4-10.4) H 02/19/24 01:08 Neut % (Auto) 88.2 % 02/19/24 01:08 Lymph % (Auto) 2.5 % 02/19/24 01:08 [place] % (Auto) 6.8 % 02/19/24 01:08 Eos % (Auto) 1.4 % 02/19/24 01:08 Baso % (Auto) 0.4 % 02/19/24 01:08 Neut # (Auto) 6.25 10^3/uL (1.8-7.7) 02/19/24 01:08 Lymph # (Auto) 0.2 10^3/uL (0.8-4.8) L 02/19/24 01:08 [place] # (Auto) 0.5 10^3/uL (0.2-0.9) 02/19/24 01:08 Eos # (Auto) 0.1 10^3/uL (0.0-0.8) 02/19/24 01:08 Baso # (Auto) 0.0 10^3/uL (0.0-0.1) 02/19/24 01:08 Nucleated RBC % (auto) 0 % 02/19/24 01:08 Nucleated RBCs # 0.0 /100WBC 02/19/24 01:08 APTT 43.7 SECONDS (23.9-36.7) H 02/19/24 01:08 D-Dimer 7.99 ug/mLFEU (0-0.59) H 02/18/24 17:30 Sodium 141 mmol/L (136-145) 02/19/24 01:08 Potassium 6.4 mmol/L (3.5-5.1) H 02/19/24 01:08 Chloride 106 mmol/L (98-107) 02/19/24 01:08 Carbon Dioxide 28 mmol/L (22-29) 02/19/24 01:08 Anion Gap 13.4 (5-19) 02/19/24 01:08 BUN 68 mg/dL (8-23) H 02/19/24 01:08 Creatinine 4.1 mg/dL (0.5-0.9) H 02/19/24 01:08 GFR Calculation Not Reportable 02/19/24 01:08 Glucose 120 mg/dL (65-115) H 02/19/24 01:08 POC Glucose 177 mg/dL (70-110) H 02/18/24 21:28 Estimat Average Glucose 85 02/19/24 01:08 Hemoglobin A1c 4.6 % (4.0-6.0) 02/19/24 01:08 Calculated Osmolality 313 mOsm/kg (285-295) H 02/19/24 01:08 Lactic Acid 1.3 mmol/L (0.5-2.2) 02/18/24 17:30 Calcium 9.9 mg/dL (8.5-10.5) 02/19/24 01:08 Phosphorus 6.7 mg/dL (2.5-4.5) H 02/19/24 01:08 Magnesium 1.8 mg/dL (1.7-2.3) 02/19/24 01:08 Iron 25 ug/dL (37-145) L 02/18/24 19:26 TIBC 157 mcg/dl 02/18/24 19:26 % Saturation 15.9 % (20-50) L 02/18/24 19:26 Unsat Iron Binding 132 ug/dL (112-347) 02/18/24 19:26 Total Bilirubin 0.2 mg/dL (0.15-1.2) 02/19/24 01:08 AST 11 U/L (0-32) 02/19/24 01:08 ALT 8 U/L (0-33) 02/19/24 01:08 Alkaline Phosphatase 58 U/L (35-105) 02/19/24 01:08 Troponin T Baseline 60 ng/L (0-10) H 02/18/24 17:30 Troponin T 120 Minute 52.27 ng/L (0-10) H 02/18/24 19:26 Delta Troponin T -7.73 ABS# (0-10) L 02/18/24 19:26 Troponin T Hi Sens 6Hr 54.12 ng/L (0-10) H 02/18/24 23:07 Troponin T Hi Sens 6Hr Delta -5.88 ng/L (0-12) L 02/18/24 23:07 NT-Pro-B Natriuret Pep 1383 pg/mL (0-450) H 02/18/24 17:30 Total Protein 6.3 g/dL (6.6-8.7) L 02/19/24 01:08 Albumin 3.7 g/dL (3.5-5.2) 02/19/24 01:08 Globulin 2.6 g/dL (1.3-4.6) 02/19/24 01:08 Triglycerides 42 mg/dL (0-150) 02/19/24 01:08 Cholesterol 113 mg/dL (0-200) 02/19/24 01:08 LDL Cholesterol, Calc 36 mg/dL (50-129) L 02/19/24 01:08 HDL Cholesterol 69 mg/dL (60-100) 02/19/24 01:08 LDL/HDL Ratio 0.52 RATIO (0.00-3.22) 02/19/24 01:08 Cholesterol/HDL Ratio 1.64 mg/dL (0.0-4.40) 02/19/24 01:08 Vitamin B12 535 pg/mL (232-1245) 02/18/24 23:07 Folate 6.8 ng/mL (4.8-37.3) 02/19/24 01:08 Procalcitonin 0.16 ng/mL (0-0.5) 02/19/24 01:08 TSH 0.55 uIU/mL (0.27-4.20) 02/18/24 19:26 A&P Assessment and plan (1) Acute on chronic renal failure: August 2023 acute on chronic renal failure. Patient's baseline creatinine is at 1.6. Today she presents with a creatinine of 4.4. CT of the abdomen and pelvis without any obstruction along the urinary system. Patient appears to be clinically dehydrated with dry parched skin and mucous membranes. Her dose of Lasix was recently increased as outpatient. Worsening kidney functions may be related to dehydration. Will hold diuretics IV fluid normal saline at 50 cc an hour. Very gentle hydration given history of severe pulmonary hypertension and diastolic heart failure in the past. Closely monitor kidney function and urine output with initiation of IV fluids. Hold nephrotoxic medications including home dose of lisinopril. Qualifiers: Acute renal failure type: unspecified Chronic kidney disease stage: unspecified stage Qualified Code(s): N17.9 - Acute kidney failure, unspecified; N18.9 - Chronic kidney disease, unspecified (2) Acute hyperkalemia: Likely as a result of acute kidney failure Potassium at 6.0 upon arrival. She has thus far received insulin dextrose, albuterol and elation and Kayexalate x 1. Repeat potassium ordered. Tall peaked T waves noted on EKG, given calcium gluconate 1 g x 1 in the emergency room. (3) Acute and chronic respiratory failure with hypoxia: Acute on chronic respiratory failure with hypoxia. Does not appear CHF related as patient is clinically dry. May be multifactorial related to pulmonary hypertension and underlying COPD. Typically patient is on 3.5 L supplemental O2, currently requiring 6 L/min D-dimer is elevated which raises concern for potential PE. Troponin series with elevated numbers in the 50s, delta is not significant at 2 or 6 hours. Will start presumptive anticoagulation with heparin drip due to possibility of PE. Patient has been poorly ambulatory the past few months after having sustained a tibial plateau fracture earlier this year. Various outpatient notes detail that patient was in a wheelchair. Unable to get a CTA of the chest due to CANDICE. Will check lower extremity Doppler Patient had reported worsening dyspnea on an outpatient visit recently and was planned to undergo an echocardiogram due to her past history of pericardial effusion requiring pericardiocentesis in the past. Will complete this testing as inpatient as potentially could be a cause of now worsening hypoxia. (4) Pulmonary hypertension: (5) Anemia: Longstanding anemia, from 1 year ago baseline hemoglobin was at 10.0 Check iron panel B12 folate and fecal occult blood Plan dvt ppx: Currently on heparin drip Attestations Medical Necessity Statement*: Greater than 2 midnight admission is anticipated for above defined care Coding Level of Care Code Acute Code for Chg Fwd High MDM includes number and complexity of problems actively addressed during encounter, amount and/or complexity of data reviewed/ordered and described risk of complication, morbidity or mortality of management as documented Diagnoses Acute on chronic renal failure N17.9; N18.9 Acute renal failure type: unspecified Chronic kidney disease stage: unspecified stage Acute hyperkalemia E87.5 Acute and chronic respiratory failure with hypoxia J96.21 Pulmonary hypertension I27.20 Anemia D64.9
[2024-02-18] MEDS: heparin drip 25,000 UNIT/500 ML PREMIX 12.08 UNIT IV (22:36)
--- NOTE | 2024-02-18 22:48 | PC.NURSE ---
PT was assisted to bedside commode. Pt tolerated well. Family had brought pt a cheeseburger, which pt ate and tolerated well. Pt is alert and in NAD. Resp slightly labored, but pt denies worse SOB than normal.
[2024-02-18 23:14] LABS: Iron 25 ug/dL (37-145); Percent Saturation 15.9 % (20-50); Thyroid Stimulating Hormone 0.55 uIU/mL (0.27-4.20); Total Iron Binding Capacity 157 mcg/dl; Unsaturated Iron Binding 132 ug/dL (112-347)
[2024-02-18 23:35] LABS: Troponin 5 6HR 54.12 ng/L (0-10)
[2024-02-18 23:36] LABS: Troponin 5 6HR Delta -5.88 ng/L (0-12)
--- NOTE | 2024-02-18 23:50 | ECG_ITS ---
[employer] Test Date: 2024-02-19 Pat Name: Venice Doe Department: Room: [facility] [place][note 2] Gender: Female Pad Tufter: : 1945 Requested By: Dani Lazo Order Number: [id number] Siria MD: Rufino Franklin M.D. Measurements Intervals [place] Rate: 60 P: 49 IN: 164 QRS: 15 QRSD: 85 T: 78 QT: 372 QTc: 372 Interpretive Statements SINUS RHYTHM NON SPECIFIC ST T WAVE CHANGES Compared to ECG 02/18/2024 18:58:03 ST (T wave) deviation now present Myocardial infarct finding now present Electronically Signed On 02-20-2024 19:08:39 DISTRICT WIRE CHIEF by Rufino Franklin M.D. [email or web address]
[2024-02-18] MEDS: sodium chloride 0.9% 1,000 ML 50 ML IV (23:59)
[2024-02-18] MEDS: pantoprazole 40 mg SDV IVP (23:59)
[2024-02-19] VITALS (85 sets, daily range): BP systolic 99–166; BP diastolic 36–123; PULSE 49–151; RESP 11–28; TEMP 36.5–36.8; O2SAT 82–100; BMI 18.8
[2024-02-19 00:13] LABS: Anion Gap 17.1 (5-19); Blood Urea Nitrogen 66 mg/dL (8-23); Calcium 10.7 mg/dL (8.5-10.5); Carbon Dioxide 24 mmol/L (22-29); Chloride 107 mmol/L (98-107); Creatinine Clr Calc Pharmacy 8.3041; Glucose 112 mg/dL (65-115); Osmolality Calculated 314 mOsm/kg (285-295); Potassium 6.1 mmol/L (3.5-5.1); Sodium 142 mmol/L (136-145)
[2024-02-19 00:30] LABS: Vitamin B12 535 pg/mL (232-1245)
[2024-02-19 01:17] LABS: Basophils % 0.4 %; Eosinophils # 0.1 10^3/uL (0.0-0.8); Eosinophils % 1.4 %; Hematocrit 29.1 % (36-47); Lymphocytes # 0.2 10^3/uL (0.8-4.8); Lymphocytes % 2.5 %; Mean Corpuscular HGB Conc 28.2 g/dL (30-55); Mean Corpuscular Hemoglobin 29.2 pg (27-33); Mean Corpuscular Volume 103.6 fl (85-98); Mean Platelet Volume 11.3 fL (7.4-10.4); Monocytes # 0.5 10^3/uL (0.2-0.9); Monocytes % 6.8 %; Neutrophils # 6.25 10^3/uL (1.8-7.7); Neutrophils % 88.2 %; Nucleated Red Blood Cells % 0 %; Platelet Count 144 10^3/cmm (157-399); Red Blood Count 2.81 10^6/uL (3.85-5.65); Red Cell Distribution Width 14.8 % (12.1-15.1); White Blood Count 7.09 10^3/uL (3.29-11.43)
[2024-02-19 01:28] LABS: Partial Thromboplastin Time 43.7 SECONDS (23.9-36.7)
[2024-02-19 01:36] LABS: Chol HDL Ratio 1.64 mg/dL (0.0-4.40); Cholesterol 113 mg/dL (0-200); HDL Cholesterol 69 mg/dL (60-100); LDL Cholesterol Calculated 36 mg/dL (50-129); LDL HDL Ratio 0.52 RATIO (0.00-3.22); Triglycerides 42 mg/dL (0-150)
[2024-02-19 01:37] LABS: Alanine Aminotransferase 8 U/L (0-33); Albumin Level 3.7 g/dL (3.5-5.2); Alkaline Phosphatase 58 U/L (35-105); Anion Gap 13.4 (5-19); Aspartate Amino Transferase 11 U/L (0-32); Blood Urea Nitrogen 68 mg/dL (8-23); Calcium 9.9 mg/dL (8.5-10.5); Carbon Dioxide 28 mmol/L (22-29); Chloride 106 mmol/L (98-107); Creatinine Clr Calc Pharmacy 8.7091; Globulin 2.6 g/dL (1.3-4.6); Glucose 120 mg/dL (65-115); Magnesium 1.8 mg/dL (1.7-2.3); Osmolality Calculated 313 mOsm/kg (285-295); Phosphorus 6.7 mg/dL (2.5-4.5); Potassium 6.4 mmol/L (3.5-5.1); Sodium 141 mmol/L (136-145); Total Bilirubin 0.2 mg/dL (0.15-1.2); Total Protein 6.3 g/dL (6.6-8.7)
[2024-02-19 01:41] LABS: Procalcitonin 0.16 ng/mL (0-0.5)
[2024-02-19 01:48] LABS: Estmated Average Glucose 85; Hemoglobin A1C 4.6 % (4.0-6.0)
[2024-02-19] MEDS: insulin regular-human 10 UNIT in SYRINGE 1 EACH IVP (02:06)
[2024-02-19] MEDS: dextrose 10% 125 ML 750 ML IV ×2 (02:07→18:24)
[2024-02-19 02:10] LABS: Folate Level 6.8 ng/mL (4.8-37.3)
[2024-02-19] MEDS: albuterol 2.5 mg/3 mL Neb INHALATION (02:14)
[2024-02-19] MEDS: calcium gluconate 0.9% NaCL 1 GM/50 ML PREMIX IV ×2 (02:39→07:43)
[2024-02-19 03:12] LABS: Glucose Point of Care 86 mg/dL (70-110)
[2024-02-19] MEDS: sodium polystyrene sulfonate 15 gm/60 mL Btl PO ×4 (03:26→20:55)
[2024-02-19 04:29] LABS: Glucose Point of Care 90 mg/dL (70-110)
[2024-02-19 05:03] LABS: Potassium, Radom Urine 28 mmol/L; Urine Random Chloride 37 mmol/L; Urine Random Sodium 44 mmol/L
[2024-02-19 06:31] LABS: Basophils % 0.3 %; Eosinophils # 0.2 10^3/uL (0.0-0.8); Eosinophils % 2.3 %; Hematocrit 27.3 % (36-47); Lymphocytes # 0.2 10^3/uL (0.8-4.8); Lymphocytes % 2.7 %; Mean Corpuscular HGB Conc 27.8 g/dL (30-55); Mean Corpuscular Volume 104.2 fl (85-98); Mean Platelet Volume 11.6 fL (7.4-10.4); Monocytes # 0.6 10^3/uL (0.2-0.9); Monocytes % 7.2 %; Neutrophils # 7.59 10^3/uL (1.8-7.7); Neutrophils % 86.5 %; Nucleated Red Blood Cells % 0 %; Platelet Count 135 10^3/cmm (157-399); Red Blood Count 2.62 10^6/uL (3.85-5.65); Red Cell Distribution Width 14.8 % (12.1-15.1); White Blood Count 8.78 10^3/uL (3.29-11.43)
[2024-02-19 06:32] LABS: Glucose Point of Care 110 mg/dL (70-110)
[2024-02-19 06:44] LABS: Troponin T (5th) Once 53 ng/L (0-10)
[2024-02-19 06:56] LABS: MRSA PCR OZH (swab) NOT DETECTED (Not Detecte)
[2024-02-19 07:09] LABS: Albumin Level 3.7 g/dL (3.5-5.2); Chloride 109 mmol/L (98-107); Sodium 142 mmol/L (136-145)
--- NOTE | 2024-02-19 07:26 | PC.NURSE ---
Informed Dr Lai of elevated KCl of 6.0. Received order to give 1g calcium gluconate IVPB. Rbvo
[2024-02-19 07:31] LABS: Alanine Aminotransferase 8 U/L (0-33); Aspartate Amino Transferase 9 U/L (0-32); Blood Urea Nitrogen 63 mg/dL (8-23); Calcium 9.6 mg/dL (8.5-10.5); Carbon Dioxide 25 mmol/L (22-29); Creatinine Clr Calc Pharmacy 8.7091; Globulin 1.4 g/dL (1.3-4.6); Glucose 91 mg/dL (65-115); Osmolality Calculated 312 mOsm/kg (285-295); Total Bilirubin 0.2 mg/dL (0.15-1.2); Total Protein 5.1 g/dL (6.6-8.7)
[2024-02-19] MEDS: ipratropium 0.5 mg/2.5 mL Neb INHALATION ×2 (07:46→19:58)
[2024-02-19] MEDS: levalbuterol 0.63 mg/3 mL Neb INHALATION ×2 (07:46→19:58)
[2024-02-19] MEDS: budesonide 0.5 mg/2 mL Neb INHALATION ×2 (07:47→19:58)
[2024-02-19] MEDS: metoprolol tartrate 25 mg Tablet PO ×2 (07:48→18:03)
[2024-02-19] MEDS: aspirin 81 mg EC Tablet PO (07:48)
[2024-02-19 08:01] LABS: Alkaline Phosphatase 52 U/L (35-105)
--- NOTE | 2024-02-19 08:22 | PC.NURSE ---
Patient transferred to ICU 10. Report given to JUSTICE THAPA. Patient instructed on transfer. Patient verbalized understanding.
--- NOTE | 2024-02-19 09:09 | USR_ITS ---
PROCEDURE INFORMATION: Exam: US Duplex Lower Extremity Veins, Bilateral Exam date and time: 02/19/2024 10:17 AM Age: 78 years old Clinical indication: Edema, localized; Lower extremity, bilateral; Additional info: Swelling TECHNIQUE: Imaging protocol: Real-time duplex ultrasound of the bilateral extremities with 2-D camacho scale, color Doppler flow and spectral waveform analysis including responses to compression and other maneuvers (when performed) with image documentation. Complete exam focused on the lower extremity veins. COMPARISON: CT knee LT wo con* [id number] 07/09/2023 3:40 PM FINDINGS: Right deep veins: Unremarkable. The common femoral, femoral, proximal profunda femoral and popliteal veins are patent without thrombus. Normal Doppler waveforms. Normal compressibility and/or augmentation response. Left deep veins: Unremarkable. The common femoral, femoral, proximal profunda femoral and popliteal veins are patent without thrombus. Normal Doppler waveforms. Normal compressibility and/or augmentation response. Superficial veins: Greater saphenous veins at the saphenofemoral junctions are patent bilaterally without thrombus. Soft tissues: Unremarkable. Other: Incidentally noted slow venous flow throughout the lower extremity veins. US/[place] [id number] IMPRESSION: No evidence of deep vein thrombosis.
--- NOTE | 2024-02-19 09:41 | P.CONIM_ITS ---
Providers/Reason For Consult 2 Consulting Physician/Specialty*: kommana/Nephrology Reason for Consult*: Hyperkalemia Acute on CKD Attending Physician: Jhonatan Echevarria MD Primary Care Provider: Jj Naranjo MD History of Present Illness History of Present Illness Venice Doe is a 78 year old female Patient is a 78-year-old female with past medical history of COPD hypertension sleep apnea. History of pericardial effusion with pericardial window, chronic kidney disease presented to the emergency department due to progressively worsening shortness of breath. She was noted to be hypoxic in the emergency department. She is on home O2 at 6 L usually. Lab data significant for hemoglobin of 8.2, potassium of 6.4 creatinine was 4.1. Prior labs about a year ago was 1.6 but most recent creatinine 2 weeks ago was 2.4 and creatinine is in the 4 range currently during this admission. Review of Systems 2 Narrative: Negative Medications/Allergies Home Medications Medication Instructions Recorded Confirmed Last Taken Type aspirin 81 mg tablet,delayed 81 mg PO DAILY 11/06/22 02/19/24 02/17/24 History release hydrocodone 10 mg-acetaminophen 1 tab PO Q6H PRN Pain 11/06/22 02/19/24 02/17/24 History 325 mg tablet Oxygen NC 2-3 L/min #1 ea 11/12/22 02/19/24 Unknown Rx oxygen at 2/L min #1 ea 12/09/22 02/19/24 Unknown Rx budesonide 160 mcg-glycopyr 9 2 inh inhalation BID 12/28/22 02/19/24 02/17/24 History mcg-formot 4.8 mcg/actuation HFA inhaler (Breztri Aerosphere) metoprolol tartrate 25 mg tablet 25 mg PO BID 30 days #180 tabs 03/30/23 02/19/24 02/17/24 Rx GELY KNEE BRACE #1 ea 05/17/23 02/19/24 Unknown Rx Wheel Chair #1 ea 05/21/23 02/19/24 Unknown Rx lisinopril 40 mg tablet 40 mg PO DAILY High blood pressure 06/29/23 02/19/24 02/17/24 Rx #90 tabs Hinged Knee Brace #1 ea 07/20/23 02/19/24 Unknown Rx potassium chloride 8 mEq 8 meq PO DAILY #90 tabs 11/26/23 02/19/24 Unknown Rx tablet,extended release amlodipine 10 mg tablet 10 mg PO DAILY high blood pressure 12/09/23 02/19/24 02/17/24 Rx #90 tabs Bifidobacterium infantis 10.5 mg 10.5 mg PO DAILY 02/19/24 02/19/24 02/17/24 History (10 million cell) chewable tablet (Align) furosemide 20 mg tablet (Lasix) 40 mg PO BID 02/19/24 02/19/24 02/17/24 History psyllium husk 3.4 gram/5.4 gram 1 tbsp PO DAILY 02/19/24 02/19/24 02/17/24 History oral powder (Metamucil) Allergies Allergy/AdvReac Type Severity Reaction Status Date / Time No Known Allergies Allergy Verified 02/18/24 16:23 Current Medications Generic Name Dose Route Start Last Admin Trade Name Freq PRN Reason Stop Dose Admin Aspirin 81 mg 02/19/24 09:00 02/19/24 07:48 Aspirin 81 Mg Ec Tablet PO 81 mg DAILY JASBIR Administration Budesonide 0.5 mg 02/19/24 08:00 02/19/24 07:47 Budesonide 0.5 Mg/2 Ml Neb INHALATION 0.5 mg BID.RESPIRATORY JASBIR Administration Heparin Sodium/Sodium Chloride 25,000 unit in 500 mls @ 0 mls/hr 02/18/24 20:45 02/19/24 02:09 Heparin Drip IV 13 unit/kg/hr CONT JASBIR 11.22 mls/hr Titration Protocol Per Protocol Dextrose 125 mls @ 750 mls/hr 02/19/24 01:11 02/19/24 02:27 D10w IV Infused PRN PRN Infusion HYPOGLYCEMIA Ipratropium Frakes 0.5 mg 02/19/24 08:00 02/19/24 07:46 Ipratropium 0.5 Mg/2.5 Ml Neb INHALATION 0.5 mg Q6H.RESP JASBIR Administration Levalbuterol HCl 0.63 mg 02/19/24 08:00 02/19/24 07:46 Levalbuterol 0.63 Mg/3 Ml Neb INHALATION 0.63 mg Q6H.RESP JASBIR Administration Metoprolol Tartrate 25 mg 02/19/24 09:00 02/19/24 07:48 Metoprolol Tartrate 25 Mg Tablet PO 25 mg BID JASBIR Administration PFSH Acute 2 PFSH: Medical History Asymptomatic bradycardia C. difficile diarrhea Bilateral shoulder pain CKD (chronic kidney disease) stage 3, GFR 30-59 ml/min Chronic low back pain with right-sided sciatica [facility], Dr. Falcon Hypertension COPD (chronic obstructive pulmonary disease) Asthma Anxiety Oxygen dependent Surgical History History of hip surgery History of ankle surgery History of back surgery Hx of hysterectomy Family History Father No problems noted. Mother Stroke Social History Smoking and tobacco/nicotine status: former use of tobacco/nicotine Quit status (tobacco/nicotine): has quit using Year quit tobacco: 2021 Former quit date comment: 1ppd X 60 years Second hand smoke exposure: No Alcohol intake: former Substance/Drug Use: never Vitals/I&O/Wt Last Vital Signs Temp 98.0 F 02/19/24 07:09 Pulse 63 02/19/24 09:12 Resp 16 02/19/24 07:47 BP 149/52 02/19/24 07:09 Pulse Ox 100 02/19/24 07:47 O2 Del Method Oxymask 02/19/24 07:47 O2 Flow Rate 6 02/19/24 07:47 02/18/24 02/19/24 02/19/24 22:59 06:59 14:59 Intake Total 500 / 500 217.984 / 717.984 50 / 50 Output Total 100 / 100 Balance 500 / 500 117.984 / 617.984 50 / 50 Weight last 48 hrs Weight 46.811 kg Weight 46.811 kg Weight 46.811 kg Weight 43.148 kg Physical Exam 2 Narrative: Patient is awake alert, mild distress HEENT S1-S2 regular rate and rhythm per report Lungs with decreased breath sounds bilaterally No pedal edema Urinary Catheter Management: Koch: Cath Placed During This Visit: yes Reason for Continuing Indwelling Catheter: Accurate Measurement of Urinary Output in Critically Ill Patients Urinary Catheter Date of Insertion: 02/19/24 Urinary Catheter Time of Insertion: 05:47 Data 02/19/24 15:08 02/19/24 18:43 Micro: Microbiology 02/19/24 04:00 Bacterial Antigens - Final Urine Kidney 02/18/24 21:07 Blood Culture - Preliminary Blood SPECIMEN COLLECTED 02/18/24 21:04 Blood Culture - Preliminary Blood SPECIMEN COLLECTED A&P Assessment and plan (1) Acute on chronic renal failure: Qualifiers: Acute renal failure type: unspecified Chronic kidney disease stage: u nspecified stage Qualified Code(s): N17.9 - Acute kidney failure, unspecified; N18.9 - Chronic kidney disease, unspecified (2) Hyperkalemia: Plan 1. Acute on chronic kidney disease: Baseline creatinine most likely in the 2 range but now has CANDICE with a creatinine in 4 range associated with oliguria and severe hyperkalemia. Hyperkalemia has been persistent despite medical therapy. Etiology unclear, likely prerenal on presentation due to poor p.o. intake and was volume resuscitated and will stop IV fluids. Creatinine down to 3.6 currently, -CT showed bilateral nonobstructing stones, no hydronephrosis.UA with 2+ protein and negative blood. -If no improvement will need dialysis and I suspect patient will need long-term dialysis for volume management and persistent hyperkalemia. -Avoid IV contrast studies. -Medically managed potassium and await repeat BMP, 2. Hyperkalemia, low K diet and status post medical management, monitor closely 3. History of CHF, diastolic and history of pulmonary hypertension on prior echo, repeat echocardiogram pending, will resume p.o. Lasix in a.m. 4. History of hypertension, resumed home meds 5. History of COPD on home O2 6 L 6. Anemia: Hemoglobin 10.2, monitor Patient evaluated using audiovisual cart. Time spent 40 minutes Consult Attestations 2 Medical Necessity Statement: Per medicine team Coding Level of Care Code Acute Code for Chg Fwd Diagnoses Acute on chronic renal failure N17.9; N18.9 Acute renal failure type: unspecified Chronic kidney disease stage: unspecified stage Hyperkalemia E87.5
--- NOTE | 2024-02-19 09:47 | ECG_ITS ---
[facility] Test Date: 2024-02-19 Pat Name: Venice Doe Department: Room: ICU10 Gender: Female Traveling Clerk: : 1945 Requested By: Jhonatan Echevarria Order Number: [id number] Siria MD: Rufino Franklin M.D. Measurements Intervals [place] Rate: 71 P: 70 MD: 144 QRS: 16 QRSD: 82 T: 79 QT: 338 QTc: 368 Interpretive Statements SINUS RHYTHM Q WAVES IN INFERIOR LEADS, MYOCARDIAL INFARCTION OF INDETERMINATE AGE Electronically Signed On 02-19-2024 10:22:09 PRECISION LENS GRINDER APPRENTICE by Rufino Franklin M.D. [id number]
[2024-02-19 09:53] LABS: Partial Thromboplastin Time 54.6 SECONDS (23.9-36.7)
[2024-02-19 10:21] LABS: Troponin(5th) Baseline 53 ng/L (0-10)
[2024-02-19] MEDS: FUROsemide 10 mg/mL SDV 4mL 40 MG IVP ×2 (10:29→16:36)
[2024-02-19] MEDS: calcium gluconate 0.1 gm/mL 10% SDV 10mL 1 GM IVP ×2 (10:30→16:13)
[2024-02-19] MEDS: pantoprazole 40 mg SDV IVP ×2 (10:30→20:25)
[2024-02-19 10:33] LABS: Ferritin 257 ng/mL (15-150); Iron 36 ug/dL (37-145); Percent Saturation 25.7 % (20-50); Total Iron Binding Capacity 140 mcg/dl; Unsaturated Iron Binding 104 ug/dL (112-347)
[2024-02-19] MEDS: insulin regular-human 10 UNIT in SYRINGE 1 EACH 1000 UNIT IVP ×2 (10:33→16:39)
[2024-02-19] MEDS: sucralfate 1 gm/10 mL Oral Liq UDC PO ×3 (11:05→20:21)
[2024-02-19 11:10] LABS: Bilirubin Urine Negative (Negative); Blood Urine Negative (Negative); Glucose Urine UA Negative (Normal); Ketones Urine Negative (Negative); Leukocyte Esterase Urine Negative (Negative); Nitrate Urine Negative (Negative); Protein Urine 2+ (Negative); Specific Gravity, Urine 1.013 (1.005-1.030); Urine Appearance Clear (CLEAR); Urobilinogen Urine 0.2 mg/dL (Negative)
--- NOTE | 2024-02-19 11:12 | ECG_ITS ---
[email or web address] Test Date: 2024-02-19 Pat Name: Venice Doe Department: Room: [facility] Gender: Female Direct Care Worker: : 1945 Requested By: Jhonatan Echevarria Order Number: [id number] Siria MD: Rufino Franklin M.D. Measurements Intervals [place] Rate: 58 P: 0 TX: 0 QRS: 35 QRSD: 89 T: 82 QT: 362 QTc: 356 Interpretive Statements SINUS BRADYCARDIA Compared to ECG 02/19/2024 09:47:00 Myocardial infarct finding no longer present Q waves no longer present Electronically Signed On 02-20-2024 19:06:53 DOCK SUPERINTENDENT by Rufino Franklin M.D. [email or web address]
[2024-02-19 11:15] LABS: Add Urine Microscopic? YES; Hyaline Casts Urine 9.51 /lpf; Squamous Epithelial Cell Urine 0-5 /hpf (0-5)
[2024-02-19 11:25] LABS: Add Urine Culture? Yes; Bacteria Urine R /hpf; UA Slide Review UA Slide Review Perf; Urine Color Orange (Yellow)
[2024-02-19 15:21] LABS: Basophils % 0.5 %; Eosinophils # 0.1 10^3/uL (0.0-0.8); Hematocrit 35.9 % (36-47); Lymphocytes # 0.2 10^3/uL (0.8-4.8); Lymphocytes % 2.3 %; Mean Corpuscular HGB Conc 28.4 g/dL (30-55); Mean Corpuscular Hemoglobin 29.6 pg (27-33); Mean Corpuscular Volume 104.1 fl (85-98); Mean Platelet Volume 11.9 fL (7.4-10.4); Monocytes # 0.5 10^3/uL (0.2-0.9); Monocytes % 5.7 %; Neutrophils # 7.72 10^3/uL (1.8-7.7); Nucleated Red Blood Cells % 0 %; Platelet Count 121 10^3/cmm (157-399); Red Blood Count 3.45 10^6/uL (3.85-5.65); Red Cell Distribution Width 15.1 % (12.1-15.1); White Blood Count 8.67 10^3/uL (3.29-11.43)
--- NOTE | 2024-02-19 15:27 | P.PN_ITS ---
Subjective 2 Subjective: - Patient was examined multiple times th roughout the morning early in the morning she was seen, on 6 L oxy mask in mild respiratory distress, having nasal flaring intercostal retractions suprasternal retractions tachypnea, able to speak a full sentence but does feel short of breath after -She tells me that she came to the [facility] due to shortness of breath feeling fatigue, malaise -During my initial discussion with her t his morning, she was alert to person, not to place, not to time, she did not recognize that she was in [place], she did not know the year, denied any chest pain, no palpitations, -I had a discussion with her about her r espiratory failure, concerns for relation to COPD, CHF, possible pneumonia, concern for hypercoagulable event, now with her acute renal failure not resistant hyperkalemia the need for dialysis, however many becomes quite upset she tells me she wants to go home, -I reached out to patient's son who is [facility] [employer] healthcare power of corporate attorney, who lives here locally, tells me that many has been short of breath for the last few days, I discussed her respiratory failure shortness of breath secondary to COPD, CHF, possible pneumonia concerns for, now with her acute renal failure resistant hyperkalemia with her chronic medical problems, she is a full code, discussed the possibility of dialysis, patient's son, Gen would like me to reach out to Rosalind patient's daughter -Spoke to Rosalind, currently residing in [facility], who is [facility] healthcare power of corporate attorney, discussed again patient's respiratory failure, with underlying COPD, pulm rotation secondary to COPD, CHF, possible pneumonia, with concerns for hypercoagulable event, acute concerns for respiratory failure, patient is acute renal failure, resistant hyperkalemia, currently jorge is confused, I cannot really get a reliable answer from her or informed decision from her, I do not know if she understands the gravity of the situation, I do not get a knowledge of it that she understands what is going on with her, and how sick she is, she keeps repeating that she wants to go home, discussed her overall goals of care, patient's daughter says that if needed we can go ahead and proceed with dialysis but she wants to see with the reading professor says -Spoke to nephrology, nephrology wants t o watch creatinine, monitor potassium, treat potassium, -Patient was reexamined, this time marcela toussaint my conversation with jorge he is alert to person, to place, to time she follows commands she is much more alert awake -I again had a discussion with her about her acute respiratory failure, multifactorial, treating her for pneumonia, COPD, CHF, concern for hypercoagulable event, currently on 6 L OxyMask she looks more comfortable than she did earlier in the morning still having some tachypnea, no significant nasal flaring, no intercostal retractions -My more acute concern is her acute anitha l failure, with a resistant hyperkalemia, we have tried to medical therapy however she continues to have resistant hyperkalemia -Discussed the need for dialysis possibl y today based upon her trajectory of her potassium and her creatinine, jorge is not too keen on having dialysis, she tells me she wants to think on it and she wants to talk to the rest the family she saw her brother go through dialysis and she does not want to go through the same, -I discussed with her that with her hype rkalemia it is life-threatening, she could have a cardiac arrhythmia, and , however she tells me that if it comes to that she would just want [place] to take her to have it -She remains a full code I discussed her overall goals of care, she wants to still remain a full code -She wants to think on dialysis, at this point she can make decisions for herself as she was much more alert awake and following all commands, would like to talk to her daughter -Wants to see how her next potassium and her kidney function looks Vitals/I&O/Wt Last Vital Signs Temp 98.1 F 02/19/24 12:00 Pulse 50 L 02/19/24 14:15 Resp 17 02/19/24 14:15 BP 166/62 02/19/24 14:15 Pulse Ox 91 02/19/24 13:45 O2 Del Method Oxymask 02/19/24 07:47 O2 Flow Rate 6 02/19/24 07:47 02/19/24 02/19/24 02/19/24 06:59 14:59 22:59 Intake Total 217.984 / 717.984 238.925 / 238.925 Output Total 100 / 100 Balance 117.984 / 617.984 238.925 / 238.925 Weight last 48 hrs Weight 46.811 kg Weight 46.811 kg Weight 46.811 kg Weight 46.811 kg Weight 43.148 kg Physical Exam 2 Const: COMMON NORMALS: no acute distress ORIENTATION/CONSCIOUSNESS: Yes awake, Yes oriented to person and Yes oriented to place Eye: COMMON NORMALS: Equal, round and reactive pupils present PUPIL: Yes Equal, round and reactive pupils present Resp: COMMON NORMALS: normal respiratory effort, No retractions and No use of accessory muscles AUSCULTATION: crackles and wheezes Cardio: COMMON NORMALS: regular rate, regular rhythm, S1 normal heart sound present and S2 normal heart sound present RATE: regular rate RHYTHM: r egular rhythm HEART SOUNDS: S1 normal heart sound present and S2 normal heart sound present GI: COMMON NORMALS: Normal to inspection, nondistended, normoactive bowel sounds present and non-tender Extremity: COMMON NORMALS: no pedal edema Neuro: SENSORIUM/ORIENTATION: Yes oriented to person and Yes oriented to place Urinary Catheter Management: Koch: Cath Placed During This Visit: yes Reason for Continuing Indwelling Catheter: Accurate Measurement of Urinary Output in Critically Ill Patients Urinary Catheter Date of Insertion: 02/19/24 Urinary Catheter Time of Insertion: 05:47 Data 02/19/24 15:08 02/19/24 06:10 Micro: Microbiology 02/19/24 04:00 Bacterial Antigens - Final Urine Kidney 02/18/24 21:07 Blood Culture - Preliminary Blood SPECIMEN COLLECTED 02/18/24 21:04 Blood Culture - Preliminary Blood SPECIMEN COLLECTED A&P Assessment and plan (1) Acute anemia: (2) Acute renal failure: (3) Hyperkalemia: (4) Elevated d-dimer: (5) NSTEMI (non-ST elevated myocardial infarction): (6) Protein calorie malnutrition: (7) Physical deconditioning: (8) COPD (chronic obstructive pulmonary disease): Qualifiers: COPD type: emphysema Emphysema type: panlobular Qualified Code(s): 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 (9) Pulmonary hypertension: (10) Diastolic heart failure: Qualifiers: Heart failure chronicity: chronic Qualified Code(s): I50.32 - Chronic diastolic (congestive) heart failure (11) Acute and chronic respiratory failure with hypoxia: (12) CKD (chronic kidney disease) stage 3, GFR 30-59 ml/min: Qualifiers: Chronic kidney disease stage 3 subtype: stage 3b (GFR 30-44) Qualified Code(s): N18.32 - Chronic kidney disease, stage 3b Plan Acute hypoxic respiratory failure -Secondary to COPD exacerbation -Secondary to CHF exacerbation, elevated BNP -Possible pneumonia given bibasilar atelectasis -Concerns for hypercoagulable event such as pulmonary embolism given elevated D- dimer of 7.99 -With underlying emphysema of the lung, COPD mMRC 3 -With underlying pulmonary hypertension PASP 75 ? Plan ? Monitor ICU closely ? Currently on 6 L OxyMask can consider BiPAP as needed ? Solu-Medrol 125 followed by 40 mg IV every 8 hours ? 1 dose IV Lasix this morning will hold off on further doses based on clinical progress -Continue heparin drip ? Start Rocephin ? Start azithromycin ? Follow blood cultures ? Respiratory viral panel ? DuoNeb -Budesonide ? Full code COPD, history of smoking CHF, elevated BNP Acute renal failure on CKD -Creatinine up to 4.2 -Has been on diuretics as outpatient -Monitor urine output monitor creatinine -Nephrology consulted -Discussion of dialysis with the patient and family Acute hyperkalemia -Status post multiple doses of insulin, D50, calcium gluconate -Kayexalate -Monitor potassium, telemetry monitoring Acute anemia -Transfuse 1 unit PRBC ? Monitor hemoglobin closely NSTEMI ? Serial EKGs, serial troponins, telemetry monitoring ? No chest pain complaints -Initial EKG showed ST-T wave changes, these changes were discussed between ER provider and cardiology, thought to be chronic -Continue to monitor with repeat troponin series, EKG series CONCLUSIONS LV systolic function is normal with EF of 60-65% Mild to moderate LVH Mild mitral regurgitation Mild tricuspid regurgitation Atrial flutter, currently in normal sinus rhythm History of pericardial effusion Deconditioning, protein calorie malnutrition, likely secondary to COPD Full code Heparin drip for DVT prophylaxis Attestations 2 Medical Necessity Statement*: Patient requires hospitalization, inpatient, greater than 2 minutes, for acute hypoxic respiratory failure, acute renal failure, hyperkalemia, pneumonia, COPD, CHF, NSTEMI, acute anemia Coding Level of Care Code 66529 High Time for a total of 70 minutes, includes reviewing past or interval history, examining/interviewing patient, placing orders, counseling patient/family/other support, updating patient/family/other support, discussing plan of care with staff, communicating with other healthcare providers, documenting encounter and coordinating care Diagnoses Acute anemia D64.9 Acute renal failure N17.9 Hyperkalemia E87.5 Elevated d-dimer R79.89 NSTEMI (non-ST elevated myocardial infarction) I21.4 Protein calorie malnutrition E46 Physical deconditioning R53.81 Panlobular emphysema J43.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
--- NOTE | 2024-02-19 15:27 | ECG_ITS ---
[facility] [place] [place] [facility] Date: 2024-02-19 Pat Name: Venice Doe Department: Room: ICU10 Gender: Female Packaging Materials Inspector: : 1945 Requested By: Jhonatan Echevarria Order Number: [id number] Siria MD: Rufino Franklin M.D. Measurements Intervals [place] Rate: 69 P: 0 NM: 0 QRS: 35 QRSD: 86 T: 87 QT: 355 QTc: 382 Interpretive Statements ATRIAL FIBRILLATION WITH ABERRANT CONDUCTION OR VENTRICULAR PREMATURE COMPLEXES POSSIBLE INFERIOR MYOCARDIAL INFARCTION , OF INDETERMINATE AGE [30 ms Q WAVE IN II/aVF] Compared to ECG 02/19/2024 13:19:05 Ventricular premature complex(es) now present Aberrant conduction of supraventricular beat(s) now present Myocardial infarct finding now present Electronically Signed On 02-20-2024 19:04:15 CONGREGATIONAL CARE PASTOR by Rufino Franklin M.D. [id number]
[2024-02-19 15:36] LABS: Partial Thromboplastin Time 59.3 SECONDS (23.9-36.7)
[2024-02-19 15:40] LABS: Troponin 5 6HR 52.12 ng/L (0-10); Troponin 5 6HR Delta -0.88 ng/L (0-12)
[2024-02-19 15:42] LABS: Blood Urea Nitrogen 61 mg/dL (8-23); Calcium 9.6 mg/dL (8.5-10.5); Carbon Dioxide 17 mmol/L (22-29); Chloride 108 mmol/L (98-107); Glucose 89 mg/dL (65-115); Osmolality Calculated 303 mOsm/kg (285-295); Sodium 138 mmol/L (136-145)
[2024-02-19 15:43] LABS: Creatinine Clr Calc Pharmacy 10.5022
[2024-02-19 15:45] LABS: Anion Gap 19.5 (5-19); Potassium 6.5 mmol/L (3.5-5.1)
[2024-02-19] MEDS: sodium bicarbonate 8.4% 1 mEq/mL 50mL Syr 50 MEQ IVP (16:10)
[2024-02-19] MEDS: cefTRIAXone 1,000 mg SDV 1000 MG IVP (16:13)
[2024-02-19] MEDS: AZITHROMYCIN ADD-Vantage 500 MG in 0.9% NaCl ADD-Vantage 250 ML 250 MG IV (16:14)
[2024-02-19] MEDS: methylPREDNISolone sod succ 125 mg/2 mL INJ IVP (16:14)
[2024-02-19] MEDS: sodium bicarbonate 50 MEQ in sodium chloride 0.45% 1,000 ML 75 MEQ IV ×2 (16:36→18:02)
--- NOTE | 2024-02-19 17:05 | XRR_ITS ---
PROCEDURE INFORMATION: Exam: XR Chest Exam date and time: 02/19/2024 5:41 PM Age: 78 years old Clinical indication: Device placement; Patient HX: Picc confirmation TECHNIQUE: Imaging protocol: Radiologic exam of the chest. Views: 1 view. COMPAR[place] [id number] 02/18/2024 8:40 PM FINDINGS: Tubes, catheters and devices: Right-sided peripherally inserted central venous catheter with its distal tip at the superior cavoatrial junction. Lungs: Mild bronchovascular prominence. Patchy opacity in the right lower lung alcantara may be positional in nature versus patchy subsegmental atelectasis. Pleural spaces: The right costophrenic angle is collimated from view limiting evaluation for right-sided pleural effusion. . The left costophrenic angle is obscured. May represent left basilar atelectasis and/or small pleural effusion. Heart/Mediastinum: The cardiomediastinal silhouette appears stable from prior exam Vasculature: Calcification of the aortic arch. Bones/joints: Unremarkable. XR/XR chest 1V portable [id number] IMPRESSION: 1. Right-sided peripherally inserted central venous catheter with its tip at the superior cavoatrial junction. 2. Bibasilar atelectasis. Possible small left pleural effusion. 3. Cardiomediastinal silhouette is stable.
[2024-02-19] MEDS: sodium chloride 0.9% 1,000 ML 50 ML IV (17:19)
[2024-02-19] MEDS: morphine 4 mg/mL SDV 1 mL 2 MG IVP (17:26)
--- NOTE | 2024-02-19 18:14 | PICC.NOTE ---
Double lumen PICC placed to right basilic vein. Referred to vascular access nurse for PICC placement due to poor access and need for multiple IV meds, including heparin and sodium bicarb. Risks and benefits discussed and informed consent obtained from pt daughter, Rosalind, by phone. Right arm assessed with right basilic vein measuring 4.1 mm, straight, and apparent best choice for placement. Using sterile technique and MST, right basilic vein accessed x 1 stick. Mid-arm circumference measured 10 cm from right AC 21 cm. Trimmed cath 37 cm with 0 cm external length noted. CXR shows tip in SVC, cavoatrial junction, in good position for use per radiologist. Line secured with stat-lock. Insertion site covered with Biopatch and TSM. Report given to bedside nurse, ALANIS RN.
[2024-02-19 18:21] LABS: Glucose Point of Care 48 mg/dL (70-110)
[2024-02-19 18:21] LABS: Glucose Point of Care 47 mg/dL (70-110)
[2024-02-19 18:42] LABS: Glucose Point of Care 121 mg/dL (70-110)
[2024-02-19 18:52] LABS: Covid PCR NEGATIVE (Negative); Influenza A NEGATIVE (Negative); Influenza B NEGATIVE (Negative); Respiratory Syncytial Virus Ce NEGATIVE (Negative)
[2024-02-19 19:20] LABS: Anion Gap 13.3 (5-19); Blood Urea Nitrogen 59 mg/dL (8-23); Calcium 9.9 mg/dL (8.5-10.5); Carbon Dioxide 26 mmol/L (22-29); Chloride 106 mmol/L (98-107); Creatinine Clr Calc Pharmacy 10.2021; Glucose 201 mg/dL (65-115); Osmolality Calculated 312 mOsm/kg (285-295); Potassium 5.3 mmol/L (3.5-5.1); Sodium 140 mmol/L (136-145)
--- NOTE | 2024-02-19 20:21 | PC.NURSE ---
Heparin Drip: On arrival to shift, Heparin drip running @13ml/hr, MAR edited for 1900 to reflect this.
--- NOTE | 2024-02-19 20:25 | USCV_ITS ---
Venice Sharpe Age: 78 Gender: F : 1945 Exam Date: 02/19/2024 10:49 Ordering Phys: Lopez Lai MD Technologist: Glynn Alvarez [place] [facility] [place]: chf BP: 127 / 45 HR: 57 Rhythm: Sinus Technical Quality: Adequate MEASUREMENTS (Male / Female) Normal Values 2D ECHO LV Diastolic Diameter PLAX 3.4 cm 4.2 - 5.9 / 3.9 - 5.3 cm IVS Diastolic Thickness 1.3 cm 0.6 - 1.0 / 0.6 - 0.9 cm IVS Systolic Thickness 2.0 cm LVPW Diastolic Thickness 1.4 cm 0.6 - 1.0 / 0.6 - 0.9 cm LVPW Systolic Thickness 1.9 cm LVOT Diameter 2.0 cm LV Ejection Fraction 2D Teich 77.8 % LV Ejection Fraction MOD 4C 80.3 % LV Ejection Fraction MOD 2C 70.1 % LV Ejection Fraction 2C AL 69.5 % LA Diameter 3.5 cm RA Systolic Volume 4C AL 37.1 ml RA Systolic Volume 4C MOD 37.0 ml LA Sys Volume AL 36.5 cm cubed LA Sys Volume Index AL 25.6 cm cubed/m squared Aorta at Sinotubular Diameter 2.4 cm IVC Diameter 1.8 cm M-MODE LA Ao Ratio MM 1.3 AV Cusp Separation MM 1.8 cm DOPPLER AV Peak Velocity 204.3 cm/s LVOT Peak Velocity 158.0 cm/s AV Area Cont Eq vti 2.1 cm squared AV Area Cont Eq pk 2.4 cm squared MV Peak Velocity 131.0 cm/s MV Area PHT 2.7 cm squared Mitral E to A Ratio 1.0 TV Peak Velocity 265.7 cm/s TR Peak Velocity 315.5 cm/s TR Peak Gradient 39.8 mmHg TR Mean Velocity 282.0 cm/s TR Mean Gradient 33.9 mmHg TR Velocity Time Integral 109.2 cm PV Peak Velocity 157.0 cm/s FINDINGS Left Ventricle Left ventricle is normal in size. LV systolic function is normal with EF of 60 to 65%. No regional wall motion abnormalities are seen. Mild to moderate left ventricular hypertrophy. Right Ventricle Normal in size and function Right Atrium Normal in size Left Atrium Normal in size Mitral Valve Structurally normal mitral valve. Mild mitral regurgitation. Aortic Valve Structurally normal aortic valve. No significant stenosis or regurgitation Tricuspid Valve Mild tricuspid regurgitation. Insufficient TR jet to calculate RVSP Pulmonic Valve Not well visualized. Pericardium Normal Aorta Normal in size IVC Appears to be normal CONCLUSIONS LV systolic function is normal with EF of 60-65% Mild to moderate LVH Mild mitral regurgitation Mild tricuspid regurgitation Rufino Franklin MD (Electronically Signed) Final Date: 19 February 2024 12:29 S
[2024-02-19 20:49] LABS: Glucose Point of Care 126 mg/dL (70-110)
[2024-02-19 22:29] LABS: Partial Thromboplastin Time 95.6 SECONDS (23.9-36.7)
[2024-02-19] MEDS: efferdent effervescent 1 EACH DENTAL (23:27)
[2024-02-19 23:28] LABS: Glucose Point of Care 150 mg/dL (70-110)
[2024-02-20] VITALS (43 sets, daily range): BP systolic 99–174; BP diastolic 43–119; PULSE 46–120; RESP 13–26; TEMP 36.6–36.9; O2SAT 92–100; BMI 19.1
[2024-02-20 01:30] LABS: Anion Gap 14.4 (5-19); Blood Urea Nitrogen 61 mg/dL (8-23); Calcium 9.3 mg/dL (8.5-10.5); Carbon Dioxide 28 mmol/L (22-29); Chloride 108 mmol/L (98-107); Creatinine Clr Calc Pharmacy 10.8204; Glucose 135 mg/dL (65-115); Osmolality Calculated 319 mOsm/kg (285-295); Potassium 5.4 mmol/L (3.5-5.1); Sodium 145 mmol/L (136-145)
[2024-02-20] MEDS: levalbuterol 0.63 mg/3 mL Neb INHALATION ×4 (02:49→19:56)
[2024-02-20] MEDS: ipratropium 0.5 mg/2.5 mL Neb INHALATION ×4 (02:49→19:56)
[2024-02-20] MEDS: sodium polystyrene sulfonate 15 gm/60 mL Btl PO ×2 (04:14→11:27)
[2024-02-20] MEDS: methylPREDNISolone sod succ 40 mg/mL INJ IVP ×3 (04:51→20:36)
[2024-02-20 05:19] LABS: ABG PCO2 56.4 mmHg (35-45); ABG PH Result 7.25 (7.35-7.45); Arterial Blood Gas Hematocrit 35.2 % (37-47); Blood Gas Allen Test Pos; Blood Gas Operator Identificat JDB; Blood Gas Sample Site Radial, right; Blood Gas Sample Type Arterial; HCO3 ABG 24.8 mmol/L (22-26); Oxygen Device NC; PO2 ABG 53.1 mmHg (80.0-100.0)
[2024-02-20 05:39] LABS: C.Diff PCR (Lab) NEGATIVE (Negative)
[2024-02-20 05:49] LABS: Basophils % 0.2 %; Lymphocytes # 0.1 10^3/uL (0.8-4.8); Lymphocytes % 1.6 %; Mean Corpuscular HGB Conc 29.7 g/dL (30-55); Mean Corpuscular Hemoglobin 29.4 pg (27-33); Mean Corpuscular Volume 99.1 fl (85-98); Mean Platelet Volume 11.5 fL (7.4-10.4); Monocytes % 0.7 %; Neutrophils # 4.22 10^3/uL (1.8-7.7); Neutrophils % 96.6 %; Nucleated Red Blood Cells % 0 %; Platelet Count 128 10^3/cmm (157-399); Red Blood Count 3.43 10^6/uL (3.85-5.65); Red Cell Distribution Width 15.5 % (12.1-15.1); White Blood Count 4.37 10^3/uL (3.29-11.43)
[2024-02-20 06:09] LABS: Alanine Aminotransferase 12 U/L (0-33); Albumin Level 3.4 g/dL (3.5-5.2); Alkaline Phosphatase 62 U/L (35-105); Blood Urea Nitrogen 63 mg/dL (8-23); Calcium 9.3 mg/dL (8.5-10.5); Carbon Dioxide 24 mmol/L (22-29); Chloride 107 mmol/L (98-107); Creatinine Clr Calc Pharmacy 10.8204; Globulin 2.8 g/dL (1.3-4.6); Glucose 157 mg/dL (65-115); Magnesium 1.3 mg/dL (1.7-2.3); Osmolality Calculated 323 mOsm/kg (285-295); Phosphorus 4.9 mg/dL (2.5-4.5); Sodium 146 mmol/L (136-145); Total Bilirubin 0.3 mg/dL (0.15-1.2); Total Protein 6.2 g/dL (6.6-8.7)
[2024-02-20 06:11] LABS: Anion Gap 19.7 (5-19); Aspartate Amino Transferase 14 U/L (0-32); Partial Thromboplastin Time 93.1 SECONDS (23.9-36.7); Potassium 4.7 mmol/L (3.5-5.1)
[2024-02-20 06:50] LABS: NT Pro B Type Natriuretic Pept 3162 pg/mL (0-450); Procalcitonin 0.16 ng/mL (0-0.5)
--- NOTE | 2024-02-20 07:00 | XRR_ITS ---
PROCEDURE INFORMATION: Exam: XR Chest Exam date and time: 02/20/2024 4:29 AM Age: 78 years old Clinical indication: Shortness of breath; Patient HX: C/O SOB. TECHNIQUE: Imaging protocol: Radiologic exam of the chest. Views: 1 view. COMPARISON: CR (CHEST, ) 02/19/2024 5:41 PM FINDINGS: Tubes, catheters and devices: Central line tip terminates in the cavoatrial junction. Lungs: Patchy airspace disease right lung base not significantly changed. Bibasilar atelectasis noted. Pleural spaces: Unremarkable. No pleural effusion. No pneumothorax. Heart/Mediastinum: There is moderate cardiomegaly with vascular congestion. Bones/joints: Unremarkable. XR/XR chest 1V portable [id number] IMPRESSION: 1. Patchy airspace disease right lung base not significantly changed. 2. Moderate cardiomegaly with vascular congestion.
[2024-02-20 07:24] LABS: Anion Gap 14.2 (5-19); Blood Urea Nitrogen 59 mg/dL (8-23); Calcium 9.2 mg/dL (8.5-10.5); Carbon Dioxide 27 mmol/L (22-29); Chloride 103 mmol/L (98-107); Glucose 138 mg/dL (65-115); Osmolality Calculated 309 mOsm/kg (285-295); Potassium 4.2 mmol/L (3.5-5.1); Sodium 140 mmol/L (136-145)
[2024-02-20 07:31] LABS: Creatinine Clr Calc Pharmacy 11.2125
[2024-02-20 07:49] LABS: Glucose Point of Care 167 mg/dL (70-110)
--- NOTE | 2024-02-20 08:27 | P.PN_ITS ---
Subjective 2 Subjective: no new c/o resting comfortably Medications: Reviewed: Yes Vitals/I&O/Wt Last Vital Signs Temp 98.2 F 02/20/24 04:50 Pulse 51 L 02/20/24 06:30 Resp 16 02/20/24 06:30 BP 163/73 02/20/24 06:30 Pulse Ox 98 02/20/24 06:30 O2 Del Method Nasal Cannula 02/20/24 06:30 O2 Flow Rate 6 02/20/24 06:30 02/19/24 02/20/24 02/20/24 22:59 06:59 14:59 Intake Total 1740.332 / 1979.257 126.117 / 2105.374 Output Total 1725 / 1725 325 / 2050 Balance 15.332 / 254.257 -198.883 / 55.374 Weight last 48 hrs Weight 47.4 kg Weight 46.811 kg Weight 46.811 kg Weight 46.811 kg Weight 46.811 kg Weight 43.148 kg Physical Exam 2 Narrative: Patient is awake alert, mild distress HEENT S1-S2 regular rate and rhythm per report Lungs with decreased breath sounds bilaterally No pedal edema Urinary Catheter Management: Koch: Cath Placed During This Visit: yes Reason for Continuing Indwelling Catheter: Accurate Measurement of Urinary Output in Critically Ill Patients Urinary Catheter Date of Insertion: 02/19/24 Urinary Catheter Time of Insertion: 05:47 Data 02/20/24 05:33 02/20/24 06:59 Micro: Microbiology 02/20/24 04:46 Occult Blood (FIT) - Final Stool Routine Collection 02/18/24 21:07 Blood Culture - Preliminary Blood NEGATIVE TO DATE 02/18/24 21:04 Blood Culture - Preliminary Blood NEGATIVE TO DATE 02/19/24 04:00 Bacterial Antigens - Final Urine Kidney A&P Assessment and plan (1) Acute on chronic renal failure: Qualifiers: Acute renal failure type: unspecified Chronic kidney disease stage: u nspecified stage Qualified Code(s): N17.9 - Acute kidney failure, unspecified; N18.9 - Chronic kidney disease, unspecified (2) Hyperkalemia: Plan 1. Acute on chronic kidney disease: Baseline creatinine most likely in the 2 range but now has CANDICE with a creatinine in 4 range associated with oliguria and severe hyperkalemia. Hyperkalemia has been persistent despite medical therapy. Etiology unclear, likely prerenal on presentation due to poor p.o. intake and was volume resuscitated . Creatinine down to 3.2 currently, -CT showed bilateral nonobstructing stones, no hydronephrosis.UA with 2+ protein and negative blood. -If no improvement will need dialysis and I suspect patient will need long-term dialysis for volume management and persistent hyperkalemia. -Avoid IV contrast studies. -Medically managed potassium and await repeat BMP, 2. Hyperkalemia, low K diet and status post medical management, monitor closely- improved 3. History of CHF, diastolic and history of pulmonary hypertension , resumed PO lasix 4. History of hypertension, resumed home meds 5. History of COPD on home O2 6 L 6. Anemia: Hemoglobin 10.2, monitor Patient evaluated using audiovisual cart. Time spent 40 minutes Attestations 2 Medical Necessity Statement*: per bruce Coding Level of Care Code Acute Code for Chg Fwd Diagnoses Acute on chronic renal failure N17.9; N18.9 Acute renal failure type: unspecified Chronic kidney disease stage: unspecified stage Hyperkalemia E87.5
[2024-02-20] MEDS: budesonide 0.5 mg/2 mL Neb INHALATION ×2 (08:41→19:56)
[2024-02-20] MEDS: sucralfate 1 gm/10 mL Oral Liq UDC PO ×4 (08:50→20:36)
[2024-02-20] MEDS: aspirin 81 mg EC Tablet PO (08:51)
[2024-02-20] MEDS: pantoprazole 40 mg SDV IVP ×2 (08:51→20:37)
[2024-02-20] MEDS: metoprolol tartrate 25 mg Tablet PO ×2 (08:51→17:23)
[2024-02-20] MEDS: FUROsemide 40 mg Tablet PO ×2 (08:51→17:23)
[2024-02-20 12:34] LABS: Partial Thromboplastin Time 71.9 SECONDS (23.9-36.7)
[2024-02-20 12:53] LABS: Anion Gap 20.3 (5-19); Blood Urea Nitrogen 62 mg/dL (8-23); Carbon Dioxide 23 mmol/L (22-29); Chloride 105 mmol/L (98-107); Creatinine Clr Calc Pharmacy 11.5742; Glucose 141 mg/dL (65-115); Osmolality Calculated 318 mOsm/kg (285-295); Potassium 4.3 mmol/L (3.5-5.1); Sodium 144 mmol/L (136-145)
--- NOTE | 2024-02-20 13:03 | PC.NURSE ---
accucheck not done due to chem lito pt wanted result taken from that
--- NOTE | 2024-02-20 14:12 | P.PN_ITS ---
Subjective 2 Subjective: Patient was seen this morning, she feels better this morning she is alert oriented x 3, following all commands is on 6 L no evidence of respiratory distress denies any chest pain, no palpitations does report weakness, no flank pain, we discussed her improving creatinine, improving potassium, will continue to monitor advance her diet PT OT, she is agreeable # At a family meeting with patient and her son and daughter, discussed patient's respiratory failure multifactorial from CHF, COPD, pneumonia, renal failure which is improving, will continue to monitor her hyperkalemia, her deconditioned state requiring PT OT, she intends on going home she has close follow-up in the emergency room watch her, Vitals/I&O/Wt Last Vital Signs Temp 98 F 02/20/24 12:00 Pulse 80 02/20/24 13:57 Resp 17 02/20/24 13:48 BP 162/63 02/20/24 12:00 Pulse Ox 93 02/20/24 13:48 O2 Del Method Nasal Cannula 02/20/24 13:48 O2 Flow Rate 6 02/20/24 13:48 02/19/24 02/20/24 02/20/24 22:59 06:59 14:59 Intake Total 1740.332 / 1979.257 126.117 / 2105.374 350.8 / 350.8 Output Total 1725 / 1725 325 / 2050 Balance 15.332 / 254.257 -198.883 / 55.374 350.8 / 350.8 Weight last 48 hrs Weight 47.4 kg Weight 47.4 kg Weight 46.811 kg Weight 46.811 kg Weight 46.811 kg Weight 46.811 kg Weight 43.148 kg Physical Exam 2 Const: COMMON NORMALS: no acute distress and patient oriented x3 Resp: COMMON NORMALS: normal respiratory effort, No retractions and No use of accessory muscles AUSCULTATION: wheezes Cardio: COMMON NORMALS: regular rate, regular rhythm, S1 normal heart sound present and S2 normal heart sound present RATE: regular rate RHYTHM: r egular rhythm HEART SOUNDS: S1 normal heart sound present and S2 normal heart sound present GI: COMMON NORMALS: Normal to inspection, nondistended, normoactive bowel sounds present and non-tender Extremity: COMMON NORMALS: no pedal edema Neuro: COMMON NORMALS: patient oriented x3 Psych: COMMON NORMALS: mental status grossly normal Urinary Catheter Management: Koch: Cath Placed During This Visit: yes Reason for Continuing Indwelling Catheter: Accurate Measurement of Urinary Output in Critically Ill Patients Urinary Catheter Date of Insertion: 02/19/24 Urinary Catheter Time of Insertion: 05:47 Data 02/20/24 05:33 02/20/24 12:09 Micro: Microbiology 02/19/24 04:00 Urine Culture - Preliminary Urine,Clean Catch 02/20/24 04:46 Occult Blood (FIT) - Final Stool Routine Collection 02/18/24 21:07 Blood Culture - Preliminary Blood NEGATIVE TO DATE 02/18/24 21:04 Blood Culture - Preliminary Blood NEGATIVE TO DATE 02/19/24 04:00 Bacterial Antigens - Final Urine Kidney A&P Assessment and plan (1) Acute anemia: (2) Acute renal failure: (3) Hyperkalemia: (4) Elevated d-dimer: (5) NSTEMI (non-ST elevated myocardial infarction): (6) Protein calorie malnutrition: (7) Physical deconditioning: (8) COPD (chronic obstructive pulmonary disease): Qualifiers: COPD type: emphysema Emphysema type: panlobular Qualified Code(s): 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 (9) Pulmonary hypertension: (10) Diastolic heart failure: Qualifiers: Heart failure chronicity: chronic Qualified Code(s): I50.32 - Chronic diastolic (congestive) heart failure (11) Acute and chronic respiratory failure with hypoxia: (12) CKD (chronic kidney disease) stage 3, GFR 30-59 ml/min: Qualifiers: Chronic kidney disease stage 3 subtype: stage 3b (GFR 30-44) Qualified Code(s): N18.32 - Chronic kidney disease, stage 3b Plan Acute hypoxic respiratory failure -Secondary to COPD exacerbation -Secondary to CHF exacerbation, elevated BNP -Possible pneumonia given bibasilar atelectasis -Concerns for hypercoagulable event such as pulmonary embolism given elevated D- dimer of 7.99 -With underlying emphysema of the lung, COPD mMRC 3 -With underlying pulmonary hypertension PASP 75 ? Plan ? Monitor ICU closely ? Currently on 6 L OxyMask can consider BiPAP as needed ? Solu-Medrol 125 followed by 40 mg IV every 8 hours ? Continue Lasix this morning -Continue heparin drip ? Continue Rocephin ? Continue azithromycin ? Follow blood cultures ? Respiratory viral panel ? DuoNeb -Budesonide ? Full code COPD, history of smoking CHF, elevated BNP Acute renal failure on CKD -Creatinine up to 3.1 -Has been on diuretics as outpatient -Monitor urine output monitor creatinine -Nephrology consulted -Discussion of dialysis with the patient and family Acute hyperkalemia, resolving -Status post multiple doses of insulin, D50, calcium gluconate, bicarb, Kayexalate -Kayexalate -Monitor potassium, telemetry monitoring Acute anemia, resolving -Transfuse 1 unit PRBC ? Monitor hemoglobin closely NSTEMI ? Serial EKGs, serial troponins, telemetry monitoring ? No chest pain complaints -Initial EKG showed ST-T wave changes, these changes were discussed between ER provider and cardiology, thought to be chronic -Continue to monitor with repeat troponin series, EKG series CONCLUSIONS LV systolic function is normal with EF of 60-65% Mild to moderate LVH Mild mitral regurgitation Mild tricuspid regurgitation -Will receive 48 hours of anticoagulant therapy Atrial flutter, currently in normal sinus rhythm History of pericardial effusion Deconditioning, protein calorie malnutrition, likely secondary to COPD Full code Heparin drip for DVT prophylaxis Plan for today, continue to monitor closely, monitor potassium, stop Kayexalate, Lasix, and antibiotics Attestations 2 Medical Necessity Statement*: Patient requires hospitalization for acute hypoxic respiratory failure, CANDICE, hyperkalemia, COPD, CHF, pneumonia, hypercoagulable event Diagnoses Acute anemia D64.9 Acute renal failure N17.9 Hyperkalemia E87.5 Elevated d-dimer R79.89 NSTEMI (non-ST elevated myocardial infarction) I21.4 Protein calorie malnutrition E46 Physical deconditioning R53.81 Panlobular emphysema J43.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
[2024-02-20] MEDS: AZITHROMYCIN ADD-Vantage 500 MG in 0.9% NaCl ADD-Vantage 250 ML 250 MG IV (16:03)
[2024-02-20] MEDS: cefTRIAXone 1,000 mg SDV 1000 MG IVP (16:03)
[2024-02-20] MEDS: water for injection-sterile 10 ML 1000 ML (16:40)
[2024-02-20 18:11] LABS: Glucose Point of Care 154 mg/dL (70-110)
[2024-02-20] MEDS: heparin drip 25,000 UNIT/500 ML PREMIX 8 UNIT IV (20:37)
[2024-02-20 20:44] LABS: Anion Gap 16.1 (5-19); Blood Urea Nitrogen 63 mg/dL (8-23); Calcium 8.7 mg/dL (8.5-10.5); Carbon Dioxide 26 mmol/L (22-29); Chloride 104 mmol/L (98-107); Creatinine Clr Calc Pharmacy 11.2125; Glucose 155 mg/dL (65-115); Osmolality Calculated 315 mOsm/kg (285-295); Potassium 4.1 mmol/L (3.5-5.1); Sodium 142 mmol/L (136-145)
[2024-02-20 20:49] LABS: Partial Thromboplastin Time 47.5 SECONDS (23.9-36.7)
[2024-02-20] MEDS: acetaminophen 325 mg Tablet 650 MG PO (23:06)
[2024-02-20] MEDS: heparin 5,000 unit/mL INJ 1 mL IVP (23:06)
[2024-02-21] VITALS (24 sets, daily range): BP systolic 80–178; BP diastolic 50–77; PULSE 58–88; RESP 16–28; TEMP 36.7–36.9; O2SAT 92–100
[2024-02-21 02:19] LABS: Glucose Point of Care 163 mg/dL (70-110)
[2024-02-21] MEDS: ipratropium 0.5 mg/2.5 mL Neb INHALATION ×4 (02:48→21:51)
[2024-02-21] MEDS: levalbuterol 0.63 mg/3 mL Neb INHALATION ×4 (02:48→21:51)
[2024-02-21] MEDS: methylPREDNISolone sod succ 40 mg/mL INJ IVP ×2 (03:56→11:27)
[2024-02-21] MEDS: acetaminophen 325 mg Tablet 650 MG PO ×2 (04:51→16:44)
[2024-02-21 05:07] LABS: Basophils % 0.1 %; Hematocrit 31.8 % (36-47); Lymphocytes # 0.1 10^3/uL (0.8-4.8); Mean Corpuscular HGB Conc 30.5 g/dL (30-55); Mean Corpuscular Hemoglobin 29.8 pg (27-33); Mean Corpuscular Volume 97.8 fl (85-98); Monocytes # 0.2 10^3/uL (0.2-0.9); Monocytes % 1.7 %; Neutrophils # 9.53 10^3/uL (1.8-7.7); Neutrophils % 96.5 %; Nucleated Red Blood Cells % 0 %; Platelet Count 133 10^3/cmm (157-399); Red Blood Count 3.25 10^6/uL (3.85-5.65); Red Cell Distribution Width 14.9 % (12.1-15.1); White Blood Count 9.88 10^3/uL (3.29-11.43)
[2024-02-21 05:31] LABS: Alanine Aminotransferase 11 U/L (0-33); Albumin Level 3.6 g/dL (3.5-5.2); Alkaline Phosphatase 54 U/L (35-105); Blood Urea Nitrogen 73 mg/dL (8-23); C Reactive Protein 5.1 mg/L (0.0-4.9); Calcium 8.8 mg/dL (8.5-10.5); Carbon Dioxide 25 mmol/L (22-29); Chloride 106 mmol/L (98-107); Creatinine Clr Calc Pharmacy 10.8727; Globulin 2.2 g/dL (1.3-4.6); Glucose 174 mg/dL (65-115); Magnesium 1.3 mg/dL (1.7-2.3); Osmolality Calculated 324 mOsm/kg (285-295); Phosphorus 3.8 mg/dL (2.5-4.5); Sodium 144 mmol/L (136-145); Total Bilirubin 0.2 mg/dL (0.15-1.2); Total Protein 5.8 g/dL (6.6-8.7)
[2024-02-21 05:34] LABS: Anion Gap 17.8 (5-19); Aspartate Amino Transferase 14 U/L (0-32); Potassium 4.8 mmol/L (3.5-5.1)
[2024-02-21 05:36] LABS: NT Pro B Type Natriuretic Pept 3849 pg/mL (0-450); Procalcitonin 0.22 ng/mL (0-0.5)
[2024-02-21] MEDS: sucralfate 1 gm/10 mL Oral Liq UDC PO ×4 (06:14→21:36)
[2024-02-21] MEDS: budesonide 0.5 mg/2 mL Neb INHALATION ×2 (07:38→21:51)
[2024-02-21] MEDS: FUROsemide 40 mg Tablet PO ×2 (08:12→16:29)
[2024-02-21] MEDS: aspirin 81 mg EC Tablet PO (08:12)
[2024-02-21] MEDS: metoprolol tartrate 25 mg Tablet PO ×2 (08:12→18:50)
[2024-02-21] MEDS: pantoprazole 40 mg SDV IVP ×2 (08:12→21:36)
[2024-02-21] MEDS: magnesium lactate 84 mg Tablet PO ×2 (09:28→18:50)
[2024-02-21 09:36] LABS: Glucose Point of Care 264 mg/dL (70-110)
--- NOTE | 2024-02-21 11:26 | PC.SOCIAL ---
IMM Updated Updated pt on IMM. No questions voiced. Provided pt a copy. Initialed, dated, & timed a copy & placed in chart.
[2024-02-21 12:31] LABS: Partial Thromboplastin Time 39.9 SECONDS (23.9-36.7)
--- NOTE | 2024-02-21 14:27 | P.PN_ITS ---
Subjective 2 Subjective: Patient was seen this morning, she is sitting up in bed, currently on 4 L, alert oriented x 3, following all commands she does feel better, denies any nausea, vomiting, no chest pain we discussed her overall improving clinical status will have PT OT work with her today her creatinine is up to 3.4 although her potassium is 4.8, the issue that we discussed is that we had to hold her heparin drip given her hemoglobin drifting down to 9.7 and her Hemoccult positive for stool the question is that had she had a hypercoagulable event to explain her respiratory failure cannot do a CTA of her chest to rule out a PE given her creatinine, the neck step would be to do a VQ scan, she is agreeable to proceed, Vitals/I&O/Wt Last Vital Signs Temp 98.0 F 02/21/24 12:00 Pulse 84 02/21/24 13:12 Resp 16 02/21/24 13:00 BP 178/70 02/21/24 12:00 Pulse Ox 92 02/21/24 13:00 O2 Del Method Nasal Cannula 02/21/24 13:00 O2 Flow Rate 3 02/21/24 13:00 02/20/24 02/21/24 02/21/24 22:59 06:59 14:59 Intake Total 920.267 / 1271.067 184.5 / 1455.567 227.45 / 227.45 Output Total 600 / 600 550 / 1150 Balance 320.267 / 671.067 -365.5 / 305.567 227.45 / 227.45 Weight last 48 hrs Weight 47.536 kg Weight 47.4 kg Weight 47.4 kg Physical Exam 2 Const: COMMON NORMALS: no acute distress and patient oriented x3 Resp: COMMON NORMALS: normal respiratory effort, No retractions and No use of accessory muscles AUSCULTATION: wheezes Cardio: COMMON NORMALS: regular rate, regular rhythm, S1 normal heart sound present and S2 normal heart sound present RATE: regular rate RHYTHM: r egular rhythm HEART SOUNDS: S1 normal heart sound present and S2 normal heart sound present GI: COMMON NORMALS: Normal to inspection, nondistended, normoactive bowel sounds present and non-tender Extremity: COMMON NORMALS: no pedal edema Neuro: COMMON NORMALS: patient oriented x3 Psych: COMMON NORMALS: mental status grossly normal Urinary Catheter Management: Koch: Cath Placed During This Visit: yes Reason for Continuing Indwelling Catheter: Accurate Measurement of Urinary Output in Critically Ill Patients Urinary Catheter Date of Insertion: 02/19/24 Urinary Catheter Time of Insertion: 05:47 Data 02/21/24 04:48 02/21/24 04:48 Micro: Microbiology 02/19/24 04:00 Urine Culture - Final Urine,Clean Catch A&P Assessment and plan (1) Acute anemia: (2) Acute renal failure: (3) Hyperkalemia: (4) Elevated d-dimer: (5) NSTEMI (non-ST elevated myocardial infarction): (6) Protein calorie malnutrition: (7) Physical deconditioning: (8) COPD (chronic obstructive pulmonary disease): Qualifiers: COPD type: emphysema Emphysema type: panlobular Qualified Code(s): 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 (9) Pulmonary hypertension: (10) Diastolic heart failure: Qualifiers: Heart failure chronicity: chronic Qualified Code(s): I50.32 - Chronic diastolic (congestive) heart failure (11) Acute and chronic respiratory failure with hypoxia: (12) CKD (chronic kidney disease) stage 3, GFR 30-59 ml/min: Qualifiers: Chronic kidney disease stage 3 subtype: stage 3b (GFR 30-44) Qualified Code(s): N18.32 - Chronic kidney disease, stage 3b Plan Acute hypoxic respiratory failure -Secondary to COPD exacerbation -Secondary to CHF exacerbation, elevated BNP -Possible pneumonia given bibasilar atelectasis -Concerns for hypercoagulable event such as pulmonary embolism given elevated D- dimer of 7.99, onset onset shortness of breath -With underlying emphysema of the lung, COPD mMRC 3 -With underlying pulmonary hypertension PASP 75 ? Plan ? Moved to [facility] ? Currently on 4 L ? De-escalate to prednisone 40 mg daily ? Continue Lasix this morning -Heparin drip on hold as hemoglobin has drifted downwards to 9.7, Hemoccult positive stool plan for VQ scan tomorrow spoke to Dr. Rosario, agreeable ? Continue Rocephin ? Continue azithromycin ? Follow blood cultures ? Respiratory viral panel negative ? DuoNeb -Budesonide ? Full code COPD, history of smoking CHF, elevated BNP Acute renal failure on CKD -Creatinine up to 3.4 -Has been on diuretics as outpatient -Monitor urine output monitor creatinine -Nephrology consulted -Discussion of dialysis with the patient and family Acute hyperkalemia, resolving -Status post multiple doses of insulin, D50, calcium gluconate, bicarb, Kayexalate -Kayexalate -Monitor potassium, telemetry monitoring Acute anemia, feeling downwards to 9.7, Hemoccult positive stool -Transfuse 1 unit PRBC ? Monitor hemoglobin closely NSTEMI ? Serial EKGs, serial troponins, telemetry monitoring ? No chest pain complaints -Initial EKG showed ST-T wave changes, these changes were discussed between ER provider and cardiology, thought to be chronic -Continue to monitor with repeat troponin series, EKG series CONCLUSIONS LV systolic function is normal with EF of 60-65% Mild to moderate LVH Mild mitral regurgitation Mild tricuspid regurgitation -Will receive 48 hours of anticoagulant therapy Atrial flutter, currently in normal sinus rhythm History of pericardial effusion Deconditioning, protein calorie malnutrition, likely secondary to COPD Full code DVT prophylax SCDs, heparin on hold Plan for today, monitor hemoglobin this afternoon, monitor BMP, VQ scan tomorrow PT OT, de-escalate steroids Attestations 2 Medical Necessity Statement*: Patient requires hospitalization for acute renal failure, hyperkalemia, acute respiratory failure concerns for hypercoagulable event Diagnoses Acute anemia D64.9 Acute renal failure N17.9 Hyperkalemia E87.5 Elevated d-dimer R79.89 NSTEMI (non-ST elevated myocardial infarction) I21.4 Protein calorie malnutrition E46 Physical deconditioning R53.81 Panlobular emphysema J43.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
--- NOTE | 2024-02-21 14:32 | USCV_ITS ---
Venice Sharpe Age: 78 Gender: F : 1945 Exam Date: 02/21/2024 16:48 Ordering Phys: Jhonatan Echevarria MD Technologist: [employer] [place]am [place] [facility] [place] Indication: AMS Risk Factors: Previous Vascular Surgery: Right Brachial BP: / Left Brachial BP: / Right Left Velocity (cm/s) Spectral Plaque Velocity (cm/s) Spectral Plaque Syst/Diast Broadening Syst/Diast Broadening 84.10/ 15.40 Prox CCA 88.40 / 13.00 68.50/ 18.00 Mid CCA 92.70 / 11.90 60.00/ 13.00 Distal CCA 54.50 / 13.00 50.10/ 11.90 Prox ICA 57.10 / 8.90 98.70/ 19.10 Mid ICA 69.30 / 12.80 80.80/ 14.70 Distal ICA 85.00 / 18.30 93.80 ECA 116.20 1.60 ICA/CCA 1.60 Antegrade Vertebral Antegrade 68.60/ 10.00 cm/s 48.10/ 8.70 cm/s Tri Subclavian Tri 179.4 165.0 0 0 CONCLUSIONS Right ICA stenosis <50%. Mild atheromatous plaque right carotid bulb/ICA. Left ICA stenosis <50%. Mild atheromatous plaque left carotid bulb/ICA. Bilateral thyroid nodules partially visualized. Recommend thyroid ultrasound Intimal thickening in the common carotid arteries and internal carotid arteries bilaterally. Normal antegrade Doppler flow noted in the right vertebral artery. Normal antegrade Doppler flow noted in the left vertebral artery. Omar Mccall MD (Electronically Signed) Final Date: 21 February 2024 17:54 S
[2024-02-21 16:27] LABS: Glucose Point of Care 206 mg/dL (70-110)
[2024-02-21] MEDS: AZITHROMYCIN ADD-Vantage 500 MG in 0.9% NaCl ADD-Vantage 250 ML 250 MG IV (16:28)
[2024-02-21] MEDS: cefTRIAXone 1,000 mg SDV 1000 MG IVP (16:28)
[2024-02-21 18:36] LABS: Basophils % 0.1 %; Hematocrit 32.5 % (36-47); Lymphocytes % 0.3 %; Mean Corpuscular HGB Conc 29.8 g/dL (30-55); Mean Corpuscular Hemoglobin 29.3 pg (27-33); Mean Corpuscular Volume 98.2 fl (85-98); Mean Platelet Volume 12.1 fL (7.4-10.4); Monocytes # 0.2 10^3/uL (0.2-0.9); Monocytes % 1.5 %; Neutrophils % 97.3 %; Nucleated Red Blood Cells % 0 %; Platelet Count 149 10^3/cmm (157-399); Red Blood Count 3.31 10^6/uL (3.85-5.65); White Blood Count 13.16 10^3/uL (3.29-11.43)
[2024-02-21 19:21] LABS: Anion Gap 15.5 (5-19); Blood Urea Nitrogen 75 mg/dL (8-23); Calcium 9.4 mg/dL (8.5-10.5); Carbon Dioxide 25 mmol/L (22-29); Chloride 103 mmol/L (98-107); Creatinine Clr Calc Pharmacy 10.8848; Glucose 177 mg/dL (65-115); Osmolality Calculated 317 mOsm/kg (285-295); Potassium 3.5 mmol/L (3.5-5.1); Sodium 140 mmol/L (136-145)
[2024-02-21 20:45] LABS: Glucose Point of Care 129 mg/dL (70-110)
[2024-02-21] MEDS: morphine 4 mg/mL SDV 1 mL 2 MG IVP (21:36)
--- NOTE | 2024-02-21 23:04 | P.PN_ITS ---
Subjective 2 Subjective: No new complaints, on 2 L O2 by nasal cannula Medications: Medication Review Details: Medications reviewed Vitals/I&O/Wt Last Vital Signs Temp 98.2 F 02/21/24 22:00 Pulse 58 L 02/21/24 22:00 Resp 19 H 02/21/24 22:00 BP 157/69 02/21/24 22:00 Pulse Ox 98 02/21/24 22:00 O2 Del Method Nasal Cannula 02/21/24 22:00 O2 Flow Rate 4 02/21/24 22:00 02/21/24 02/21/24 02/22/24 14:59 22:59 06:59 Intake Total 347.45 / 347.45 1121.383 / 1468.833 Output Total 850 / 850 Balance 347.45 / 347.45 271.383 / 618.833 Weight last 48 hrs Weight 47.536 kg Weight 47.4 kg Weight 47.4 kg Physical Exam 2 Narrative: patient is frail, no distress HEENT S1-S2 regular rate and rhythm per report Lungs clear per report No pedal edema Urinary Catheter Management: Koch: Cath Placed During This Visit: yes Reason for Continuing Indwelling Catheter: Accurate Measurement of Urinary Output in Critically Ill Patients Urinary Catheter Date of Insertion: 02/19/24 Urinary Catheter Time of Insertion: 05:47 Data 02/21/24 18:22 02/21/24 18:22 Micro: Microbiology 02/19/24 04:00 Urine Culture - Final Urine,Clean Catch A&P Assessment and plan (1) Acute on chronic renal failure: Qualifiers: Acute renal failure type: unspecified Chronic kidney disease stage: u nspecified stage Qualified Code(s): N17.9 - Acute kidney failure, unspecified; N18.9 - Chronic kidney disease, unspecified (2) Hyperkalemia: Plan 1. Acute on chronic kidney disease: Baseline creatinine most likely in the 2 range but now has CANDICE with a creatinine in 4 range associated with oliguria and severe hyperkalemia. Hyperkalemia has been persistent despite medical therapy. Etiology unclear, likely prerenal on presentation due to poor p.o. intake and was volume resuscitated . Creatinine down to 3.2 currently, -CT showed bilateral nonobstructing stones, no hydronephrosis.UA with 2+ protein and negative blood. 2. Hyperkalemia, low K diet and status post medical management, monitor closely- improved 3. History of CHF, diastolic and history of pulmonary hypertension , resumed PO lasix 4. History of hypertension, resumed home meds 5. History of COPD on home O2 6. Anemia: Hemoglobin 10.2, monitor Patient evaluated using audiovisual cart. Time spent 40 minutes Attestations 2 Medical Necessity Statement*: Per medicine team Coding Level of Care Code Acute Code for Chg Fwd Diagnoses Acute on chronic renal failure N17.9; N18.9 Acute renal failure type: unspecified Chronic kidney disease stage: unspecified stage Hyperkalemia E87.5
[2024-02-22] VITALS: BP 154/69; PULSE 60; RESP 18; TEMP 37; O2SAT 94
[2024-02-22 00:59] VITALS: BP 157/69; PULSE 58; RESP 19; TEMP 36.8; O2SAT 98
[2024-02-22 04:00] VITALS: BP 164/88; PULSE 71; RESP 18; TEMP 37; O2SAT 97
[2024-02-22 05:29] LABS: Basophils % 0.1 %; Hematocrit 29.8 % (36-47); Lymphocytes # 0.1 10^3/uL (0.8-4.8); Mean Corpuscular HGB Conc 30.2 g/dL (30-55); Mean Corpuscular Hemoglobin 28.8 pg (27-33); Mean Corpuscular Volume 95.2 fl (85-98); Mean Platelet Volume 12.3 fL (7.4-10.4); Monocytes # 0.5 10^3/uL (0.2-0.9); Monocytes % 4.5 %; Neutrophils % 93.8 %; Nucleated Red Blood Cells % 0 %; Platelet Count 138 10^3/cmm (157-399); Red Blood Count 3.13 10^6/uL (3.85-5.65); Red Cell Distribution Width 14.9 % (12.1-15.1); White Blood Count 10.98 10^3/uL (3.29-11.43)
[2024-02-22 05:53] LABS: Alanine Aminotransferase 12 U/L (0-33); Albumin Level 3.3 g/dL (3.5-5.2); Alkaline Phosphatase 46 U/L (35-105); Anion Gap 13.9 (5-19); Aspartate Amino Transferase 10 U/L (0-32); Blood Urea Nitrogen 73 mg/dL (8-23); Calcium 9.4 mg/dL (8.5-10.5); Carbon Dioxide 28 mmol/L (22-29); Chloride 106 mmol/L (98-107); Creatinine Clr Calc Pharmacy 11.7327; Globulin 2.2 g/dL (1.3-4.6); Glucose 108 mg/dL (65-115); Magnesium 1.5 mg/dL (1.7-2.3); Osmolality Calculated 320 mOsm/kg (285-295); Phosphorus 3.7 mg/dL (2.5-4.5); Potassium 3.9 mmol/L (3.5-5.1); Sodium 144 mmol/L (136-145); Total Bilirubin 0.2 mg/dL (0.15-1.2); Total Protein 5.5 g/dL (6.6-8.7)
[2024-02-22 05:55] LABS: NT Pro B Type Natriuretic Pept 3875 pg/mL (0-450); Procalcitonin 0.21 ng/mL (0-0.5)
[2024-02-22] MEDS: sucralfate 1 gm/10 mL Oral Liq UDC PO ×2 (06:06→12:11)
[2024-02-22 06:23] LABS: Glucose Point of Care 112 mg/dL (70-110)
[2024-02-22 07:54] VITALS: BP 166/74; PULSE 85; RESP 18; TEMP 36.6; O2SAT 95
[2024-02-22] MEDS: budesonide 0.5 mg/2 mL Neb INHALATION (08:43)
[2024-02-22] MEDS: ipratropium 0.5 mg/2.5 mL Neb INHALATION (08:43)
[2024-02-22] MEDS: levalbuterol 0.63 mg/3 mL Neb INHALATION (08:43)
[2024-02-22 08:45] VITALS: PULSE 79; RESP 18; O2SAT 99
[2024-02-22] MEDS: metoprolol tartrate 25 mg Tablet PO (08:46)
[2024-02-22] MEDS: aspirin 81 mg EC Tablet PO (08:46)
[2024-02-22] MEDS: FUROsemide 40 mg Tablet PO (08:46)
[2024-02-22] MEDS: magnesium lactate 84 mg Tablet PO (08:46)
[2024-02-22] MEDS: pantoprazole 40 mg SDV IVP (08:47)
[2024-02-22] MEDS: predniSONE 20 mg Tablet 40 MG PO (08:48)
--- NOTE | 2024-02-22 10:04 | P.PN_ITS ---
Subjective 2 Subjective: no new complaints Medications: Reviewed: Yes Vitals/I&O/Wt Last Vital Signs Temp 97.9 F 02/22/24 07:54 Pulse 79 02/22/24 08:45 Resp 18 02/22/24 08:45 BP 166/74 02/22/24 07:54 Pulse Ox 99 02/22/24 08:45 O2 Del Method Nasal Cannula 02/22/24 08:45 O2 Flow Rate 4 02/22/24 08:45 02/21/24 02/22/24 02/22/24 22:59 06:59 14:59 Intake Total 1121.383 / 1468.833 120 / 1588.833 120 / 120 Output Total 850 / 850 700 / 1550 Balance 271.383 / 618.833 -580 / 38.833 120 / 120 Weight last 48 hrs Weight 49.079 kg Weight 47.536 kg Physical Exam 2 Narrative: patient is frail, no distress HEENT S1-S2 regular rate and rhythm per report Lungs clear per report No pedal edema Urinary Catheter Management: Koch: Cath Placed During This Visit: yes Reason for Continuing Indwelling Catheter: Accurate Measurement of Urinary Output in Critically Ill Patients Urinary Catheter Date of Insertion: 02/19/24 Urinary Catheter Time of Insertion: 05:47 Data 02/22/24 05:07 02/22/24 05:07 Micro: Microbiology 02/19/24 04:00 Urine Culture - Final Urine,Clean Catch A&P Assessment and plan (1) Acute on chronic renal failure: Qualifiers: Acute renal failure type: unspecified Chronic kidney disease stage: u nspecified stage Qualified Code(s): N17.9 - Acute kidney failure, unspecified; N18.9 - Chronic kidney disease, unspecified (2) Hyperkalemia: Plan 1. Acute on chronic kidney disease: Baseline creatinine most likely in the 2 range but now has CANDICE with a creatinine in 4 range associated with oliguria and severe hyperkalemia. Hyperkalemia has been persistent despite medical therapy. Etiology unclear, likely prerenal on presentation due to poor p.o. intake and was volume resuscitated . Creatinine down to 3.1 currently, -CT showed bilateral nonobstructing stones, no hydronephrosis.UA with 2+ protein and negative blood. -Arrange Nephrology referral @ dc 2. Hyperkalemia, low K diet and status post medical management, monitor closely- improved 3. History of CHF, diastolic and history of pulmonary hypertension , resumed PO lasix 4. History of hypertension, resumed home meds 5. History of COPD on home O2 6. Anemia: Hemoglobin 9.0 , monitor Patient evaluated using audiovisual cart. Time spent 40 minutes Attestations 2 Medical Necessity Statement*: per medicine Coding Level of Care Code Acute Code for Chg Fwd Diagnoses Acute on chronic renal failure N17.9; N18.9 Acute renal failure type: unspecified Chronic kidney disease stage: unspecified stage Hyperkalemia E87.5
--- NOTE | 2024-02-22 10:31 | PM.DCS ---
Discharge Providers Date of Admission: 02/18/24 21:58 Date of Discharge: February 22, 2024 Attending Provider at Admission: Lopez Lai MD Attending Provider at Discharge: Jhonatan Echevarria MD Primary Care Provider: Jj Naranjo MD Diagnoses at Discharge Discharge Diagnosis (1) Acute on chronic renal failure: Status: Acute Qualifiers: Acute renal failure type: unspecified Chronic kidney disease stage: unspecified stage Qualified Code(s): N17.9 - Acute kidney failure, unspecified; N18.9 - Chronic kidney disease, unspecified (2) Hyperkalemia: Status: Acute Reason for Visit Reason for Visit: SOB, AMS Hospital Course Hospital Course [place] Doe is a 78 year old female with PMH COPD, h/o recurrent large pericardial effusion s/p window and pericardial biopsy last in 2018, severe pulmonary HTN, ERICKA, HTN, chronic multiple joint pain, h/o tibial plateau fracture in July 2023 managed conservatively. She has been experiencing increased shortness of breath over the past 3 weeks, which is progressively worsening. She has had swelling in her legs previously, but today she appears dehydrated. Her 02 requirement has been increasing from 2lpm to 3/5 lpm over the past few months. She recently followed with cardiology as outpatient when potassium supplemenattion was stopped due to hyperkalemia and lasix dose was doubled. She comes to the ER today as she was noted by her family to be very somnolent and weaker than at baseline. She started new medication by way of gabapentin 300mg daily. At time of this assessment she is somnolent, however wakes up easily to touch and talking in a loud voice. She is able to state her name, age but needs reorientation as to her surroundings. She is unable to relay much history other than feeling very weak ove rthe past few weeks. Patient was admitted to [facility] for acute hypoxic respiratory failure secondary to COPD, CHF, pneumonia, received broad-spectrum biotic therapy steroid therapy, IV diuresis, overall clinically improved. Will be discharged on Lasix, prednisone burst, antibiotics with close follow-up with pulmonary as outpatient There was concerns for hypercoagulable event given her elevated D-dimer during the hospitalization, initially managed on a heparin drip held due to acute anemia, VQ scan showed low probability of pulmonary embolism For COPD, history of smoking, history of pulm hypertension follow-up with primary care, follow-up with pulmonary Acute hyperkalemia related to acute renal failure required medical intervention, resolved on discharge patient's hospitalization was complicated by acute renal failure with hyperkalemia, nephrology was consulted patient was hesitant to dialysis, she was medically manage, her creatinine improved with medical intervention potassium improved with medical intervention. On discharge her creatinine is 3.1, potassium 3.9, follow-up with primary care provider to recheck potassium and creatinine Acute anemia, requiring transfusion 1 unit PRBC Hemoccult positive stool, possible slow GI bleed. But also component related to acute renal failure. No hemodynamic compromise, no bloody or black stools reported, will discharge patient on Protonix, Carafate, with a close follow-up with general surgery as outpatient for consideration of EGD and colonoscopy. Have primary care provider recheck hemoglobin on Wednesday or Wednesday NSTEMI, medically managed, no chest pain complaints, follow-up with primary care Physical Exam Const: COMMON NORMALS: no acute distress and patient oriented x3 Resp: COMMON NORMALS: normal respiratory effort, No retractions, No use of accessory muscles and clear to auscultation bilaterally AUSCULTATION: clear to auscultation bilaterally Cardio: COMMON NORMALS: regular rate, regular rhythm, S1 normal heart sound present and S2 normal heart sound present RATE: regular rate RHYTHM: regular rhythm HEART SOUNDS: S1 normal heart sound present and S2 normal heart sound present GI: COMMON NORMALS: Normal to inspection, nondistended, normoactive bowel sounds present and non-tender Extremity: COMMON NORMALS: no pedal edema Neuro: COMMON NORMALS: patient oriented x3 Psych: COMMON NORMALS: mental status grossly normal Urinary Catheter Management: Koch: Cath Placed During This Visit: yes Reason for Continuing Indwelling Catheter: Accurate Measurement of Urinary Output in Critically Ill Patients Urinary Catheter Date of Insertion: 02/19/24 Urinary Catheter Time of Insertion: 05:47 Discharge Data Studies Completed and Pending Completed Studies During Hospitalization Category Date Time Status CT chest abdomen pelvis [[place] [id number] Cat Scan 02/18/24 20:12 Completed ] Stat CXRP [XR chest 1V portable [id number]] Routine Exams 02/19/24 17:05 Completed XR chest 1V portable [id number] Routine Exams 02/20/24 07:00 Completed XR chest 1V portable [id number] Stat Exams 02/18/24 16:47 Completed NM pul vent and perfus* [id number] Routine Nuc Med 02/22/24 14:26 Completed CV carotid duplex BI* [id number] Routine Ultrasound 02/21/24 14:32 [place] [id number] Routine Ultrasound 02/19/24 09:09 Completed CV. echo complete* [id number] Stat Ultrasound 02/19/24 20:25 Completed Pending at discharge Category Date Time Status Blood Culture Stat Lab 02/18/24 21:07 Results Radiology Impressions Chest/Abdomen/Pelvis CT 02/18/24 20:12 IMPRESSION: 1. Coronary artery and aortic atherosclerotic calcifications. 2. Cardiomegaly. 3. Emphysematous changes. 4. Right lower lobe 17 mm somewhat focal nodular density increase compared IMPRESSION: 1. Prominent fluid in the stomach and small bowel, please correlate for a gastroenteritis. 2. Lumbar spine surgical hardware. 3. Left proximal femur surgical hardware. 4. Bilateral punctate nonobstructing renal calyceal stones. 5. Bilateral renal cysts, negative for follow-up advised. 6. Proximal renal artery atherosclerotic disease bilaterally with 60-70% luminal narrowing. COMMENTS: Consistent with the [employer]'s Incidental Findings Committee white paper (J Am Cassidy Radiol 2018): Any incidental renal lesion less than 1 cm or classified as too small to characterize, or any incidental cystic renal lesion characterized as simple-appearing, is likely benign. No follow-up imaging is recommended for these lesions per consensus recommendations based on imaging criteria. Venous Duplex 02/19/24 09:09 IMPRESSION: No evidence of deep vein thrombosis. Chest X-Ray 02/20/24 07:00 IMPRESSION: 1. Patchy airspace disease right lung base not significantly changed. 2. Moderate cardiomegaly with vascular congestion. Pulmonary Perfusion Imaging 02/22/24 14:26 IMPRESSION: 1. Low probability for pulmonary embolus. 2. Matched defect in the RIGHT lower lobe may be due to new infiltrate, atelectasis, or COPD recommend chest radiograph. Laboratory Results WBC 10.98 10^3/uL (3.29-11.43) 02/22/24 05:07 Corrected WBC Cancelled 02/19/24 15:08 RBC 3.13 10^6/uL (3.85-5.65) L 02/22/24 05:07 Hgb 9.00 g/dL (11.27-16.99) L 02/22/24 05:07 Hct 29.8 % (36-47) L 02/22/24 05:07 MCV 95.2 fl (85-98) 02/22/24 05:07 MCH 28.8 pg (27-33) 02/22/24 05:07 MCHC 30.2 g/dL (30-55) 02/22/24 05:07 RDW 14.9 % (12.1-15.1) 02/22/24 05:07 Plt Count 138 10^3/cmm (157-399) L 02/22/24 05:07 MPV 12.3 fL (7.4-10.4) H 02/22/24 05:07 Gran % Cancelled 02/19/24 15:08 Neut % (Auto) 93.8 % 02/22/24 05:07 Lymph % (Auto) 1.0 % 02/22/24 05:07 Bee % (Auto) 4.5 % 02/22/24 05:07 Eos % (Auto) 0.0 % 02/22/24 05:07 Baso % (Auto) 0.1 % 02/22/24 05:07 Neut # (Auto) 10.30 10^3/uL (1.8-7.7) H 02/22/24 05:07 Lymph # (Auto) 0.1 10^3/uL (0.8-4.8) L 02/22/24 05:07 Bee # (Auto) 0.5 10^3/uL (0.2-0.9) 02/22/24 05:07 Eos # (Auto) 0.0 10^3/uL (0.0-0.8) 02/22/24 05:07 Baso # (Auto) 0.0 10^3/uL (0.0-0.1) 02/22/24 05:07 Absolute Gran (auto) Cancelled 02/19/24 15:08 Nucleated RBC % (auto) 0 % 02/22/24 05:07 Nucleated RBCs # 0.0 /100WBC 02/22/24 05:07 APTT 39.9 SECONDS (23.9-36.7) H 02/21/24 12:11 D-Dimer 7.99 ug/mLFEU (0-0.59) H 02/18/24 17:30 Specimen Type Arterial 02/20/24 04:56 Sample Site Radial, right 02/20/24 04:56 ABG pH 7.25 (7.35-7.45) L 02/20/24 04:56 ABG pCO2 56.4 mmHg (35-45) H 02/20/24 04:56 ABG pO2 53.1 mmHg (80.0-100.0) L 02/20/24 04:56 ABG HCO3 24.8 mmol/L (22-26) 02/20/24 04:56 ABG Base Excess -3.0 mmol/L (-2.0-2.0) L 02/20/24 04:56 Sukumar Test Pos 02/20/24 04:56 Hematocrit 35.2 % (37-47) L 02/20/24 04:56 O2 Delivery Device Nc 02/20/24 04:56 O2 Liters/Min 6.0 % 02/20/24 04:56 [employer] ID [id number] 02/20/24 04:56 Sodium 144 mmol/L (136-145) 02/22/24 05:07 Potassium 3.9 mmol/L (3.5-5.1) 02/22/24 05:07 Chloride 106 mmol/L (98-107) 02/22/24 05:07 Carbon Dioxide 28 mmol/L (22-29) 02/22/24 05:07 Anion Gap 13.9 (5-19) 02/22/24 05:07 BUN 73 mg/dL (8-23) H 02/22/24 05:07 Creatinine 3.1 mg/dL (0.5-0.9) H 02/22/24 05:07 GFR Calculation Not Reportable 02/22/24 05:07 Glucose 108 mg/dL (65-115) 02/22/24 05:07 POC Glucose 112 mg/dL (70-110) H 02/22/24 06:08 Estimat Average Glucose 85 02/19/24 01:08 Hemoglobin A1c 4.6 % (4.0-6.0) 02/19/24 01:08 Calculated Osmolality 320 mOsm/kg (285-295) H 02/22/24 05:07 Lactic Acid 1.3 mmol/L (0.5-2.2) 02/18/24 17:30 Calcium 9.4 mg/dL (8.5-10.5) 02/22/24 05:07 Phosphorus 3.7 mg/dL (2.5-4.5) 02/22/24 05:07 Magnesium 1.5 mg/dL (1.7-2.3) L 02/22/24 05:07 Iron 36 ug/dL (37-145) L 02/19/24 09:33 TIBC 140 mcg/dl 02/19/24 09:33 % Saturation 25.7 % (20-50) 02/19/24 09:33 Unsat Iron Binding 104 ug/dL (112-347) L 02/19/24 09:33 Ferritin 257 ng/mL (15-150) H 02/19/24 09:33 Total Bilirubin 0.2 mg/dL (0.15-1.2) 02/22/24 05:07 AST 10 U/L (0-32) 02/22/24 05:07 ALT 12 U/L (0-33) 02/22/24 05:07 Alkaline Phosphatase 46 U/L (35-105) 02/22/24 05:07 Troponin T 5th Gen ng/L 53 ng/L (0-10) H 02/19/24 06:10 Troponin T Baseline 53 ng/L (0-10) H 02/19/24 09:33 Troponin T 120 Minute Cancelled 02/19/24 15:08 Delta Troponin T Cancelled 02/19/24 15:08 Troponin T Hi Sens 6Hr 52.12 ng/L (0-10) H 02/19/24 15:08 Troponin T Hi Sens 6Hr Delta -0.88 ng/L (0-12) L 02/19/24 15:08 C-Reactive Protein 3.0 mg/L (0.0-4.9) 02/22/24 05:07 NT-Pro-B Natriuret Pep 3875 pg/mL (0-450) H 02/22/24 05:07 Total Protein 5.5 g/dL (6.6-8.7) L 02/22/24 05:07 Albumin 3.3 g/dL (3.5-5.2) L 02/22/24 05:07 Globulin 2.2 g/dL (1.3-4.6) 02/22/24 05:07 Triglycerides 42 mg/dL (0-150) 02/19/24 01:08 Cholesterol 113 mg/dL (0-200) 02/19/24 01:08 LDL Cholesterol, Calc 36 mg/dL (50-129) L 02/19/24 01:08 HDL Cholesterol 69 mg/dL (60-100) 02/19/24 01:08 LDL/HDL Ratio 0.52 RATIO (0.00-3.22) 02/19/24 01:08 Cholesterol/HDL Ratio 1.64 mg/dL (0.0-4.40) 02/19/24 01:08 Vitamin B12 535 pg/mL (232-1245) 02/18/24 23:07 Folate 6.8 ng/mL (4.8-37.3) 02/19/24 01:08 Procalcitonin 0.21 ng/mL (0-0.5) 02/22/24 05:07 TSH 0.55 uIU/mL (0.27-4.20) 02/18/24 19:26 Urine Color [place] (Yellow) A 02/19/24 04:00 Urine Appearance Clear (CLEAR) 02/19/24 04:00 Urine pH 5.0 (5-7) 02/19/24 04:00 Ur Specific [place] 1.013 (1.005-1.030) 02/19/24 04:00 Urine Protein 2+ (Negative) A 02/19/24 04:00 Urine Glucose (UA) Negative (Normal) 02/19/24 04:00 Urine Ketones Negative (Negative) 02/19/24 04:00 Urine Blood Negative (Negative) 02/19/24 04:00 Urine Nitrate Negative (Negative) 02/19/24 04:00 Urine Bilirubin Negative (Negative) 02/19/24 04:00 Urine Urobilinogen 0.2 mg/dL (Negative) 02/19/24 04:00 Ur Leukocyte Esterase Negative (Negative) 02/19/24 04:00 Urine RBC 3-5 /hpf (0-2) 02/19/24 04:00 Urine WBC 5-10 /hpf (0-5) H 02/19/24 04:00 Ur Squamous Epith Cells 0-5 /hpf (0-5) 02/19/24 04:00 Urine Bacteria R /hpf (NONE) 02/19/24 04:00 Hyaline Casts 9.51 /lpf 02/19/24 04:00 Urine Yeast 1+ /hpf H 02/19/24 04:00 Ur Random Sodium 44 mmol/L 02/19/24 04:00 Ur Random Potassium 28 mmol/L 02/19/24 04:00 Ur Random Chloride 37 mmol/L 02/19/24 04:00 Nasal MRSA (PCR) Not detected (Not Detecte) 02/19/24 04:30 C. difficile (PCR) Negative (Negative) 02/20/24 04:46 Coronavirus (PCR) Negative (Negative) 02/19/24 17:20 Influenza A (PCR) Negative (Negative) 02/19/24 17:20 Influenza Type B (PCR) Negative (Negative) 02/19/24 17:20 RSV (PCR) Negative (Negative) 02/19/24 17:20 Blood Type O Positive 02/19/24 09:33 Rho(D) Type Rh positive 02/19/24 09:33 Antibody Screen Negative 02/19/24 09:33 Crossmatch See Detail 02/19/24 09:33 Vitals Last Vital Signs Temp 97.9 F 02/22/24 07:54 Pulse 79 02/22/24 08:45 Resp 18 02/22/24 08:45 BP 166/74 02/22/24 07:54 Pulse Ox 99 02/22/24 08:45 O2 Del Method Nasal Cannula 02/22/24 08:45 O2 Flow Rate 4 02/22/24 08:45 Discharge Plan Discharge Patient Disposition: Home Condition: Stable Prescriptions: New magnesium L-lactate [Magtab] 84 mg Tablet Extended Release 84 mg PO DAILY 30 Days Qty: 30 0RF amoxicillin-pot clavulanate [Augmentin] 500-125 mg tablet 1 tab PO BID 5 Days Qty: 10 0RF sucralfate [Carafate] 1 gram tablet 1 g PO BID 28 Days Qty: 56 0RF prednisone 20 mg Tablet 40 mg PO DAILY 5 Days Qty: 10 0RF potassium chloride [Klor-Con M10] 10 mEq tablet,ER particles/crystals 10 meq PO DAILY 30 Days Qty: 30 0RF pantoprazole [Protonix] 40 mg tablet,delayed release (DR/EC) 40 mg PO BID 30 Days Qty: 60 0RF Continued aspirin 81 mg tablet,delayed release (DR/EC) 81 mg PO DAILY hydrocodone-acetaminophen 10-325 mg tablet 1 tab PO Q6H PRN (Reason: Pain) (DME) Hinged Knee Brace See Rx Instructions .Route .MEDSUPPLY Qty: 1 0RF Rx Instructions: As directed Virginiatri Aerosphere 160-9-4.8 mcg/actuation HFA aerosol inhaler 2 inh inhalation BID (DME) oxygen at 2/L min See Rx Instructions .Route .MEDSUPPLY Qty: 1 11RF Rx Instructions: As directed (DME) GELY KNEE BRACE See Rx Instructions .Route .MEDSUPPLY Qty: 1 0RF Rx Instructions: As directed Lock at 30-60 degrees (DME) Oxygen NC 2-3 L/min See Rx Instructions .Route .MEDSUPPLY Qty: 1 0RF Rx Instructions: As directed metoprolol tartrate 25 mg tablet 25 mg PO BID 30 Days Qty: 180 3RF (DME) Wheel Chair See Rx Instructions .Route .MEDSUPPLY Qty: 1 0RF Rx Instructions: As directed amlodipine 10 mg tablet 10 mg PO DAILY Qty: 90 1RF Metamucil 3.4 gram/5.4 gram Powder 1 tbsp PO DAILY Rx Instructions: mix into at least 8 oz of water or juice before administering Align 10.5 mg (10 million cell) Tablet,Chewable 10.5 mg PO DAILY Changed furosemide [Lasix] 20 mg tablet 20 mg PO BID 30 Days Qty: 60 0RF Discontinued lisinopril 40 mg tablet 40 mg PO DAILY Qty: 90 1RF potassium chloride 8 mEq tablet extended release 8 meq PO DAILY Qty: 90 3RF Discharge Orders: Discharge Order (Routine); Ordered 02/22/24 Ordered By: Jhonatan Echevarria Referrals: Tejinder Alfred DO [Physician] - 1 month (egd and colonscopy) Jj Naranjo MD [Primary Care Provider] - 1-3 days Kolby Byrd MD, MBBS, MPH [Referring] - 1 week (copd, phtn) Discharge Diet: Cardiac Discharge Activity: Resume usual activity Patient Instructions: Opioid Safety Activity Restrictions/Additional Instructions: - Please have your primary care provider recheck your kidney function and your hemoglobin on Wednesday or Wednesday next ?please have your primary care provider recheck your potassium -Please drink between 1 to 1.5 L of fluid a day -Please monitor kidney function through primary care closely ? Please avoid any NSAIDs ? If you develop any bloody black stools to immediately go to the emergency room ? If you have sudden onset shortness of breath, please go to emergency room ? Discharge Attestations Time Spent in Discharge Care*: greater than 30 min Quality Metrics Clinical Quality Measures [ No reported AMI, CVA or VTE this stay] Coding Level of Care Code 82555 Total time (in minutes) for Discharge: 45 Diagnoses Acute on chronic renal failure N17.9; N18.9 Acute renal failure type: unspecified Chronic kidney disease stage: unspecified stage Hyperkalemia E87.5
[2024-02-22 10:55] LABS: Glucose Point of Care 89 mg/dL (70-110)
[2024-02-22 12:00] VITALS: BP 181/75; PULSE 52; RESP 17; TEMP 36.6; O2SAT 92
--- NOTE | 2024-02-22 12:59 | PC.NURSE ---
myrick catheter removed on 02/21 @ approx. 1215, pt tolerated well
--- NOTE | 2024-02-22 14:26 | NM_ITS ---
WS: [id number] NUCLEAR MEDICINE LUNG VENTILATION AND PERFUSION CLINICAL INFORMATION: concerns for PE TECHNIQUE: Ventilation/perfusion lung scan with 32.5 mCi technetium 99m DTPA and 5.4 mCi MAA. COMPARISON: Radiograph 02/20/2024 FINDINGS: Advanced chronic emphysematous changes. Cardiomegaly. Patchy radiotracer deposition along the central bronchi and throughout both lungs due to emphysematous change. Numerous matched defects due to emphysema. Larger matched defect in the RIGHT lower lobe may be due t o new pulmonary infiltrate or atelectasis. Recommend more recent chest radiograph. No segmental or lobar mismatched ventilation/perfusion defects to indicate pulmonary embolus. Low pro bability for pulmonary embolus NM/NM pul vent and perfus* [id number] IMPRESSION: 1. Low probability for pulmonary embolus. 2. Matched defect in the RIGHT lower lobe may be due to new infiltrate, atelect asis, or COPD recommend chest radiograph.
== END 2024-02-22 12:30 | disposition home health service (06) | DRG 280 ==
LOC: ER 21:36 → CSU 21:59 → ICU 02-19 08:23 → MEDSURG 02-21 11:35
PROVIDERS: Student in an Organized Health Care Education/Training Program; Admitting Provider Student in an Organized Health Care Education/Training Program; Emergency Provider Emergency Medicine; PCP Family Medicine Adult Medicine; Visit Provider Family Medicine
DX: I13.0 Hypertensive heart and chronic kidney disease with heart failure and stage 1 through stage 4 chronic kidney disease, or unspecified chronic kidney disease (principal); I50.33 Acute on chronic diastolic (congestive) heart failure; I21.4 Non-ST elevation (NSTEMI) myocardial infarction; J96.21 Acute and chronic respiratory failure with hypoxia; J18.9 Pneumonia, unspecified organism; N17.9 Acute kidney failure, unspecified; J44.0 Chronic obstructive pulmonary disease with (acute) lower respiratory infection; J44.1 Chronic obstructive pulmonary disease with (acute) exacerbation; D68.59 Other primary thrombophilia; K92.1 Melena; E46 Unspecified protein-calorie malnutrition; Z68.1 Body mass index [BMI] 19.9 or less, adult; N18.32 Chronic kidney disease, stage 3b; E87.5 Hyperkalemia; J43.1 Panlobular emphysema; I27.20 Pulmonary hypertension, unspecified; E86.0 Dehydration; D64.9 Anemia, unspecified; Z87.891 Personal history of nicotine dependence; Z99.81 Dependence on supplemental oxygen; Z79.82 Long term (current) use of aspirin
CPT/HCPCS: 0241U; 36415; 36416; 36430; 36573; 36592; 36600; 51702; 71045; 71250; 74176; 78014; 80048; 80053; 80061; 81001; 82274; 82436; 82607; 82728; 82746; 82803; 82947; 82962; 83036; 83540; 83550; 83605; 83735; 83880; 84100; 84133; 84145; 84300; 84443; 84484; 85025; 85378; 85730; 86140; 86403; 86850; 86900; 86920; 87040; 87086; 87493; 93005; 93306; 93880; 93970; 94640; 94664; 96374; 96375; 96376; 97116; 97161; 97165; 97530; 99285; A9540; A9567; J0456; J0612; J0696; J1644; J1815; J1940; J2270; J2470; J2919; J3490; J7030; J7050; J7512; J7613; J7614; J7626; J7644; J7799; P9016; Q3014

== ENCOUNTER → 2024-02-29 13:37 | Outpatient (BNVA) | payer MEDICARE, OTHER, SELFPAY | PROVIDERS: PCP Family Medicine; Referring Provider Family Medicine; Visit Provider Dermatology | DX: L82.1 Other seborrheic keratosis (principal); L72.0 Epidermal cyst; D48.5 Neoplasm of uncertain behavior of skin; D18.01 Hemangioma of skin and subcutaneous tissue; Z85.828 Personal history of other malignant neoplasm of skin; L57.0 Actinic keratosis | CPT/HCPCS: 11102; 17000; 99203 ==

== ENCOUNTER 2024-04-05 08:43 | Inpatient (IN) | payer MEDICARE, OTHER, SELFPAY ==
[2024-04-05] VITALS (20 sets, daily range): BP systolic 103–164; BP diastolic 49–74; PULSE 61–98; RESP 16–24; TEMP 36.6–36.9; O2SAT 92–100; BMI 18.3
--- NOTE | 2024-04-05 09:11 | CT_ITS ---
WS: [id number] CT ABDOMEN PELVIS TECHNIQUE: Noncontrast CT of the abdomen and pelvis with coronal and sagittal reformatted images. CLINICAL INFORMATION: abd pain COMPARISON: 02/18/2024 DLP: 285.[address] scans at [facility] use at least one of these dose optimization techniques: automated e xposure control; mA and/or kV adjustment per patient size (includes targeted exams where dose is matc hed to clinical indication); or iterative reconstruction. FINDINGS: Prior hysterectomy. Pedicle screw fixation lumbar spine with fusion L3-S1. Anterior fusion L4-5. Wide decompressive laminectomies in the lumbar spine. Beam-hardening artifact degrades images in the lowe r abdomen and pelvis. Osteopenia. Intramedullary shreya and screw fixation LEFT hip. RIGHT lower lobe no dular opacity measuring 1.6 cm. Recommend 6-month chest CT follow-up. Bibasilar atelectasis. Hepatome eliu. Chronic dilatation of the common bile duct similar to previous. Air-fluid level in the stomach. Splenic granulomas. Adrenal glands are normal. No hydronephrosis in e ither kidney. RIGHT upper pole renal cyst measuring 7.1 x 6.0 cm. Smaller LEFT renal cyst. Aortic maranda cification. Tortuous lobulated abdominal aorta. Ectatic abdominal aorta measuring 2.8 x 2.1 cm. Fatty atrophy of the pancreas. Mild dilatation of the pancreatic duct unchanged. Transverse colon constipa tion. Tortuous transverse colon. Mild compression superior endplate T12 is new from 02/18/2024. Recom mend correlation for low back pain. Sigmoid colon is decompressed. Evidence of prior postoperative ch anges with anastomosis appears to involve the transverse colon. Mild circumferential mucosal edema involving the distal sigmoid and rectum best appreciated on the co antonio imaging. RIGHT correlation for distal colitis. CT/CT abdomen pelvis wo con [id number] IMPRESSION: Images degraded in the abdomen and pelvis due to lumbar hardware 1. Mild compression fracture superior end plate T12 is new compared to 024. No retropulsion. 2. Mild mucosal edema involving the distal sigmoid colon and rectum. Recommend correlation for distal colitis. 3. Mild fecal retention in the distal transverse colon. Evidence of prior flex l anastomosis. Tortuous colon. 4. Chronic dilatation of the common bile duct unchanged since 02/18/2024. 5. Indeterminate RIGHT lower lobe irregular nodular opacity measuring 1.6 cm. Recommend 6-month follow-up. This is stable since 02/18/2024 6. Prior hysterectomy. 7. Hepatomegaly.
[2024-04-05 09:26] LABS: Basophils % 0.5 %; Eosinophils # 0.1 10^3/uL (0.0-0.8); Eosinophils % 1.6 %; Lymphocytes # 0.3 10^3/uL (0.8-4.8); Mean Corpuscular HGB Conc 28.8 g/dL (30-55); Mean Corpuscular Hemoglobin 29.5 pg (27-33); Mean Corpuscular Volume 102.5 fl (85-98); Monocytes # 0.3 10^3/uL (0.2-0.9); Monocytes % 4.9 %; Neutrophils # 5.58 10^3/uL (1.8-7.7); Neutrophils % 88.7 %; Nucleated Red Blood Cells % 0 %; Platelet Count 129 10^3/cmm (157-399); Red Blood Count 2.44 10^6/uL (3.85-5.65); Red Cell Distribution Width 15.4 % (12.1-15.1); White Blood Count 6.29 10^3/uL (3.29-11.43)
[2024-04-05 09:36] LABS: INR 0.88 (0.8-1.2)
[2024-04-05 09:37] LABS: Partial Thromboplastin Time 25.7 SECONDS (23.9-36.7)
--- NOTE | 2024-04-05 09:38 | ED_ITS ---
HPI - GI Bleed 2 General: Chief complaint: GI Bleed Stated complaint: passin blood Time Seen by Provider: 04/05/24 09:11 History of Present Illness: 78-year-old female presents to the [facility] ency room complaining of bloody stools for the last few days. Is also noticed stools have been black. She does admit she takes iron regularly. She is on aspirin but no other platelet inhibitors or anticoagulants. This morning she had noticed some bright red blood from stool. She does admit to having hemorrhoids. She has not had any hematemesis or coffee-ground emesis no dysuria urgency or frequency no fever sweats or chills. She is complaining of back pain which is somewhat chronic. He has a history of COPD and is typically on 3 L by nasal cannula. Associated symptoms: Reports abdominal pain and nausea; Denies chills, fever(s) or rash Related Data Home Medications Medication Instructions Recorded Confirmed aspirin 81 mg tablet,delayed 81 mg PO DAILY 11/06/22 04/05/24 release hydrocodone 10 mg-acetaminophen 1 tab PO Q6H PRN Pain 11/06/22 04/05/24 325 mg tablet ferrous sulfate 325 mg (65 mg 325 mg PO DAILY 04/05/24 04/05/24 iron) tablet (FeroSul) fluticasone propionate 115 2 puff inhalation BID 04/05/24 04/05/24 mcg-salmeterol 21 mcg/actuation HFA inhaler (Advair HFA) gabapentin 300 mg capsule 300 mg PO QPM 04/05/24 04/05/24 ropinirole 0.5 mg tablet 0.5 mg PO QPM 04/05/24 04/05/24 Previous Rx's Medication Instructions Recorded Oxygen NC 2-3 L/min #1 ea 11/12/22 oxygen at 2/L min #1 ea 12/09/22 metoprolol tartrate 25 mg tablet 25 mg PO BID 30 days #180 tabs 03/30/23 GELY KNEE BRACE #1 ea 05/17/23 Wheel Chair #1 ea 05/21/23 Hinged Knee Brace #1 ea 07/20/23 amlodipine 10 mg tablet 10 mg PO DAILY high blood pressure 12/09/23 #90 tabs furosemide 20 mg tablet (Lasix) 20 mg PO BID #60 tabs 04/03/24 ciprofloxacin HCl 500 mg tablet 500 mg PO BID #8 tabs 04/08/24 (Cipro) metronidazole 500 mg tablet 500 mg PO BID 4 days #8 tabs 04/08/24 pantoprazole 40 mg tablet,delayed 40 mg PO BID 4 weeks #56 tabs 04/08/24 release (Protonix) sucralfate 1 gram tablet 1 g PO BID #60 tabs 04/08/24 Allergies Allergy/AdvReac Type Severity Reaction Status Date / Time No Known Allergies Allergy Verified 02/18/24 16:23 Review of Systems 2 Const: Denies: fever(s) or chills Card: Denies: chest pain Resp: Denies: dyspnea GI: Reports: abdominal pain, nausea, hematochezia and melena : Denies: dysuria, urinary frequency or urinary urgency Musc: Denies: neck pain or back pain Skin/Breast: Denies: rash PFSH ED 2 PFSH: Medical History Asymptomatic bradycardia C. difficile diarrhea Bilateral shoulder pain CKD (chronic kidney disease) stage 3, GFR 30-59 ml/min Chronic low back pain with right-sided sciatica [facility], Dr. Falcon Hypertension COPD (chronic obstructive pulmonary disease) Asthma Anxiety Oxygen dependent Surgical History History of hip surgery History of ankle surgery History of back surgery Hx of hysterectomy Family History Father No problems noted. Mother Stroke Social History Smoking and tobacco/nicotine status: former use of tobacco/nicotine Quit status (tobacco/nicotine): has quit using Year quit tobacco: 2021 Former quit date comment: 1ppd X 60 years Second hand smoke exposure: No Alcohol intake: former Substance/Drug Use: never Physical Exam 2 Const: COMMON NORMALS: no acute distress GENERAL APPEARANCE: cooperative and comfortable ORIENTATION/CONSCIOUSNESS: Yes awake, Yes oriented to person, Yes oriented to place and Yes oriented to time HENMT: COMMON NORMALS: normocephalic, atraumatic and hearing grossly normal bilaterally HEAD & SCALP: normocephalic and atraumatic Resp: COMMON NORMALS: normal respiratory effort, No retractions, No use of accessory muscles and clear to auscultation bilaterally AUSCULTATION: clear to auscultation bilaterally Cardio: COMMON NORMALS: regular rate, regular rhythm and No murmurs present (Cardio) RATE: regular rate RHYTHM: regular rhythm GI: COMMON NORMALS: Soft to palpation and No hepatosplenomegaly present A USCULTATION: Yes normoactive bowel sounds PALPATION: Yes Soft to palpation, No Tenderness to palpation present (GI), No Guarding due to palpation present (GI) and Yes No hepatosplenomegaly present OTHER: Rectal exam markedly melanotic stools sharply blue on Hemoccult testing Extremity: COMMON NORMALS: normal to inspection, capillary refill normal, no clubbing, cyanosis or edema, no calf tenderness and no pedal edema Neuro: SENSORIUM/ORIENTATION: Yes oriented to person, Yes oriented to place and Yes oriented to time Skin: COMMON NORMALS: no rashes or lesions noted GENERAL SKIN EXAM: no rashes or lesions noted Course 2 Vital Signs: Vital signs: Vital Signs Temperature 98.6 F 04/08/24 14:20 Pulse Rate 61 04/08/24 14:20 Respiratory Rate 15 04/08/24 14:20 Blood Pressure 129/64 04/08/24 14:20 Pulse Oximetry 94 04/08/24 14:20 Oxygen Delivery Me thod Nasal Cannula 04/08/24 12:00 Oxygen Flow Rate 3 04/08/24 10:00 MDM - GI Bleed Medical Decision Making On rectal exam sharply positive melanotic appearing stool. Will admit the patient started on Protonix keep n.p.o. discussed with hospitalist orders written. Additionally there is colitis which likely accounts for the bright red blood the patient reported and there is a what appears to be new T12 compression fracture no retropulsion. Discussed with hospitalist orders written Medical Records I reviewed the patient's medical records. Lab Data I reviewed the patient's lab results. 04/08/24 02:55 04/08/24 02:55 Radiology Impressions Abdomen/Pelvis CT 04/05/24 09:11 IMPRESSION: Images degraded in the abdomen and pelvis due to lumbar hardware 1. Mild compression fracture superior end plate T12 is new compared to 02/18/2024. No retropulsion. 2. Mild mucosal edema involving the distal sigmoid colon and rectum. Recommend correlation for distal colitis. 3. Mild fecal retention in the distal transverse colon. Evidence of prior bowel anastomosis. Tortuous colon. 4. Chronic dilatation of the common bile duct unchanged since 02/18/2024. 5. Indeterminate RIGHT lower lobe irregular nodular opacity measuring 1.6 cm. Recommend 6-month follow-up. This is stable since 02/18/2024 6. Prior hysterectomy. 7. Hepatomegaly. Laboratory Results WBC 6.29 10^3/uL (3.29-11.43) 04/05/24 09:18 RBC 2.44 10^6/uL (3.85-5.65) L 04/05/24 09:18 Hgb 7.20 g/dL (11.27-16.99) L 04/05/24 09:18 Hct 25.0 % (36-47) L 04/05/24 09:18 MCV 102.5 fl (85-98) H 04/05/24 09:18 MCH 29.5 pg (27-33) 04/05/24 09:18 MCHC 28.8 g/dL (30-55) L 04/05/24 09:18 RDW 15.4 % (12.1-15.1) H 04/05/24 09:18 Plt Count 129 10^3/cmm (157-399) L 04/05/24 09:18 MPV 11.0 fL (7.4-10.4) H 04/05/24 09:18 Neut % (Auto) 88.7 % 04/05/24 09:18 Lymph % (Auto) 4.0 % 04/05/24 09:18 [place] % (Auto) 4.9 % 04/05/24 09:18 Eos % (Auto) 1.6 % 04/05/24 09:18 Baso % (Auto) 0.5 % 04/05/24 09:18 Neut # (Auto) 5.58 10^3/uL (1.8-7.7) 04/05/24 09:18 Lymph # (Auto) 0.3 10^3/uL (0.8-4.8) L 04/05/24 09:18 [place] # (Auto) 0.3 10^3/uL (0.2-0.9) 04/05/24 09:18 Eos # (Auto) 0.1 10^3/uL (0.0-0.8) 04/05/24 09:18 Baso # (Auto) 0.0 10^3/uL (0.0-0.1) 04/05/24 09:18 Nucleated RBC % (auto) 0 % 04/05/24 09:18 Nucleated RBCs # 0.0 /100WBC 04/05/24 09:18 Peripher Smr Path Cons Sent for review 04/05/24 09:18 PT 12.60 SECONDS (12.1-14.9) 04/05/24 09:18 INR 0.88 (0.8-1.2) 04/05/24 09:18 APTT 25.7 SECONDS (23.9-36.7) 04/05/24 09:18 Sodium 143 mmol/L (136-145) 04/05/24 09:18 Potassium 5.7 mmol/L (3.5-5.1) H 04/05/24 09:18 Chloride 107 mmol/L (98-107) 04/05/24 09:18 Carbon Dioxide 28 mmol/L (22-29) 04/05/24 09:18 Anion Gap 13.7 (5-19) 04/05/24 09:18 BUN 66 mg/dL (8-23) H 04/05/24 09:18 Creatinine 2.4 mg/dL (0.5-0.9) H 04/05/24 09:18 GFR Calculation Not Reportable 04/05/24 09:18 Glucose 155 mg/dL (65-115) H 04/05/24 09:18 Calculated Osmolality 318 mOsm/kg (285-295) H 04/05/24 09:18 Uric Acid 5.6 mg/dL (2.4-5.7) 04/05/24 09:18 Calcium 10.3 mg/dL (8.5-10.5) 04/05/24 09:18 Total Bilirubin 0.2 mg/dL (0.15-1.2) 04/05/24 09:18 AST 9 U/L (0-32) 04/05/24 09:18 ALT 7 U/L (0-33) 04/05/24 09:18 Alkaline Phosphatase 64 U/L (35-105) 04/05/24 09:18 Total Protein 6.0 g/dL (6.6-8.7) L 04/05/24 09:18 Albumin 3.8 g/dL (3.5-5.2) 04/05/24 09:18 Globulin 2.2 g/dL (1.3-4.6) 04/05/24 09:18 Procalcitonin 0.25 ng/mL (0-0.5) 04/05/24 09:18 Urine Color Yellow (Yellow) 04/05/24 11:56 Urine Appearance Cloudy (CLEAR) A 04/05/24 11:56 Urine pH 5.0 (5-7) 04/05/24 11:56 Ur Specific [place] 1.012 (1.005-1.030) 04/05/24 11:56 Urine Protein 2+ (Negative) A 04/05/24 11:56 Urine Glucose (UA) Negative (Normal) 04/05/24 11:56 Urine Ketones Negative (Negative) 04/05/24 11:56 Urine Blood 1+ (Negative) A 04/05/24 11:56 Urine Nitrate Negative (Negative) 04/05/24 11:56 Urine Bilirubin Negative (Negative) 04/05/24 11:56 Urine Urobilinogen 0.2 mg/dL (Negative) 04/05/24 11:56 Ur Leukocyte Esterase Negative (Negative) 04/05/24 11:56 Urine RBC 0-2 /hpf (0-2) 04/05/24 11:56 Urine WBC 0-5 /hpf (0-5) 04/05/24 11:56 Ur Squamous Epith Cells 6-10 /hpf (0-5) 04/05/24 11:56 Amorphous Sediment 2+ /hpf 04/05/24 11:56 Urine Bacteria None seen /hpf (NONE) 04/05/24 11:56 Hyaline Casts 3.71 /lpf 04/05/24 11:56 Ur Random Sodium 69 mmol/L 04/05/24 11:56 Ur Random Potassium 33 mmol/L 04/05/24 11:56 Ur Random Chloride 80 mmol/L 04/05/24 11:56 Blood Type O Positive 04/05/24 10:12 Rho(D) Type Rh positive 04/05/24 10:12 Antibody Screen Negative 04/05/24 10:12 Crossmatch See Detail 04/05/24 10:12 All radiology interpretation(s) finalized by discharge Discharge Plan Discharge Patient Disposition: Admitted As Inpatient Admit Provider: Akilah Altman Clinical Impression: Acute upper GI bleed, Colitis, Compression fracture of thoracic vertebra Condition: Stable Discharge Diet: Cardiac Discharge Activity: Resume usual activity Coding Level of Care Code ED Batch Unit Treater for Dhruv Benson
[2024-04-05 09:41] LABS: Alanine Aminotransferase 7 U/L (0-33); Albumin Level 3.8 g/dL (3.5-5.2); Alkaline Phosphatase 64 U/L (35-105); Anion Gap 13.7 (5-19); Aspartate Amino Transferase 9 U/L (0-32); Blood Urea Nitrogen 66 mg/dL (8-23); Calcium 10.3 mg/dL (8.5-10.5); Carbon Dioxide 28 mmol/L (22-29); Chloride 107 mmol/L (98-107); Globulin 2.2 g/dL (1.3-4.6); Glucose 155 mg/dL (65-115); Osmolality Calculated 318 mOsm/kg (285-295); Potassium 5.7 mmol/L (3.5-5.1); Sodium 143 mmol/L (136-145); Total Bilirubin 0.2 mg/dL (0.15-1.2)
[2024-04-05] MEDS: albuterol 2.5 mg/3 mL Neb 10 MG INHALATION (10:01)
[2024-04-05] MEDS: sodium chloride 0.9% 500 ML 999 ML IV (11:26)
[2024-04-05] MEDS: calcium chloride 10% Syr 10 mL 1 GM IVP (11:28)
[2024-04-05] MEDS: pantoprazole 40 mg SDV 80 MG IVP (11:34)
[2024-04-05] MEDS: metroNIDAZOLE IV 500 MG/100 ML PREMIX 100 MG IV (11:35)
--- NOTE | 2024-04-05 12:32 | P.CONIM_ITS ---
Providers/Reason For Consult 2 Consulting Physician/Specialty*: General Surgery Reason for Consult*: GI bleeding Primary Care Provider: Jj Monk MD History of Present Illness History of Present Illness [place] Doe is a 78 year old female who presents to the hospital with bloody stools. According to the patient she noticed blood on her stools yesterday and today but over the last 2 weeks she has been having melena. Upon arrival to the ED she was noted to have a low hemoglobin and a CT scan of the abdomen pelvis show evidence of colitis the level of the sigmoid and rectum. Review of Systems 2 General: Reports: 10 or more systems reviewed and unremarkable except in HPI and below Medications/Allergies Home Medications Medication Instructions Recorded Confirmed Last Taken Type aspirin 81 mg tablet,delayed 81 mg PO DAILY 11/06/22 04/05/24 02/17/24 History release hydrocodone 10 mg-acetaminophen 1 tab PO Q6H PRN Pain 11/06/22 04/05/24 02/17/24 History 325 mg tablet Oxygen NC 2-3 L/min #1 11/12/22 04/05/24 Unknown Rx oxygen at 2/L min #1 12/09/22 04/05/24 Unknown Rx metoprolol tartrate 25 mg tablet 25 mg PO BID 30 days #180 tabs 03/30/23 04/05/24 02/17/24 Rx GELY KNEE BRACE #1 05/17/23 04/05/24 Unknown Rx Wheel Chair #1 ea 05/21/23 04/05/24 Unknown Rx Hinged Knee Brace #1 ea 07/20/23 04/05/24 Unknown Rx amlodipine 10 mg tablet 10 mg PO DAILY high blood pressure 12/09/23 04/05/24 02/17/24 Rx #90 tabs furosemide 20 mg tablet (Lasix) 20 mg PO BID #60 tabs 04/03/24 04/05/24 Unknown Rx ferrous sulfate 325 mg (65 mg 325 mg PO DAILY 04/05/24 04/05/24 Unknown History iron) tablet (FeroSul) fluticasone propionate 115 2 puff inhalation BID 04/05/24 04/05/24 Unknown History mcg-salmeterol 21 mcg/actuation HFA inhaler (Advair HFA) gabapentin 300 mg capsule 300 mg PO QPM 04/05/24 04/05/24 Unknown History potassium chloride 10 mEq 10 meq PO DAILY 04/05/24 04/05/24 Unknown History tablet,extended release prazosin 1 mg capsule 1 mg PO BID 04/05/24 04/05/24 Unknown History ropinirole 0.5 mg tablet 0.5 mg PO QPM 04/05/24 04/05/24 Unknown History Allergies Allergy/AdvReac Type Severity Reaction Status Date / Time No Known Allergies Allergy Verified 02/18/24 16:23 PFSH Acute 2 PFSH: Medical History Asymptomatic bradycardia C. difficile diarrhea Bilateral shoulder pain CKD (chronic kidney disease) stage 3, GFR 30-59 ml/min Chronic low back pain with right-sided sciatica [facility], Dr. Falcon Hypertension COPD (chronic obstructive pulmonary disease) Asthma Anxiety Oxygen dependent Surgical History History of hip surgery History of ankle surgery History of back surgery Hx of hysterectomy Family History Father No problems noted. Mother Stroke Social History Smoking and tobacco/nicotine status: former use of tobacco/nicotine Quit status (tobacco/nicotine): has quit using Year quit tobacco: 2021 Former quit date comment: 1ppd X 60 years Second hand smoke exposure: No Alcohol intake: former Substance/Drug Use: never Vitals/I&O/Wt Last Vital Signs Temp 97.8 F 04/05/24 09:05 Pulse 66 04/05/24 10:42 Resp 16 04/05/24 10:02 BP 123/49 04/05/24 09:05 Pulse Ox 98 04/05/24 10:02 O2 Del Method Nasal Cannula 04/05/24 10:02 O2 Flow Rate 2 04/05/24 10:02 Weight last 48 hrs Weight 100 lb Physical Exam 2 GI: OTHER: Abdominal exam is benign abdomen soft nontender nondistended. Data 04/05/24 09:18 04/05/24 09:18 A&P Assessment and plan (1) C. difficile diarrhea: (2) Acute anemia: Plan After complete history and physical examination following is my assessment. Patient will benefit from endoscopic evaluation for evaluation of possible upper GI bleeding. I have discussed all recent benefits of the procedure including the risks of perforation of the esophagus stomach or duodenum need for additional interventions or need for transfer to higher level of care. I have also Splane to the patient that she will require a colonoscopy in 4 to 6 weeks after her current episode of colitis results, initial management of her colitis should be with antibiotic, bowel rest and a GI soft diet going forward, no lower endoscopy is recommended at this time as proceeding with endoscopy during active episode of colitis can lead to perforation. Patient shows understanding agrees with the plan. I agree with medical management per hospitalist team and we will proceed with EGD tomorrow. Coding Level [facility] Code [facility] C. difficile diarrhea A04.72 Acute anemia D64.9
[2024-04-05] MEDS: ciprofloxacin 400 MG/200 ML PREMIX 200 MG IV (13:02)
[2024-04-05 13:22] LABS: Bilirubin Urine Negative (Negative); Blood Urine 1+ (Negative); Glucose Urine UA Negative (Normal); Ketones Urine Negative (Negative); Leukocyte Esterase Urine Negative (Negative); Nitrate Urine Negative (Negative); Protein Urine 2+ (Negative); Specific Gravity, Urine 1.012 (1.005-1.030); Urine Appearance Cloudy (CLEAR); Urine Color Yellow (Yellow); Urobilinogen Urine 0.2 mg/dL (Negative)
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
[2024-04-05 13:27] LABS: Add Urine Microscopic? YES; Bacteria Urine None Seen /hpf; Hyaline Casts Urine 3.71 /lpf; RBC Urine 0-2 /hpf (0-2); WBC Urine 0-5 /hpf (0-5)
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
[2024-04-05 13:49] LABS: Procalcitonin 0.25 ng/mL (0-0.5)
--- NOTE | 2024-04-05 13:54 | USCV_ITS ---
Venice Sharpe Age: 78 Gender: F : 1945 Exam Date: 04/05/2024 16:54 Ordering Phys: Benoit Jacobo MD Technologist: [place] [facility] [place]: ckd Aortic Velocity @ SMA (cm/s) 78 RIGHT KIDNEY LEFT KIDNEY Velocity (cm/s) Velocity (cm/s) Sys/Carreno Sys/Carreno Resistive Index Resistive Index 88.0 / 29.8 0.66 Proximal Renal Artery 124.2 / 31.0 0.75 48.4 / 17.0 0.60 Mid Renal Artery 45.4 / 12.1 0.73 74.0 / 18.2 0.70 Distal Renal Artery 98.0 / 9.2 0.90 1.10 Renal Aortic Ratio 1.50 11.5 Kidney Length (cm) 9.4 FINDINGS there is no evidence of GIBSON Difficult study If there is any indication of GIBSON further eval with other modality maybe useful CONCLUSIONS Technically difficult study No sonographic evidence of hemodynamically significant renal artery stenosis bilaterally. No hydronephrosis in either kidney Right Renal cyst 5.0 x 7.4cm Omar Mccall MD (Electronically Signed) Final Date: 06 April 2024 09:41 S
[2024-04-05 14:07] LABS: UA Slide Review UA Slide Review Perf
[2024-04-05 14:09] LABS: Add Urine Culture? No; Amorphous Sediment Urine 2+ /hpf
[2024-04-05 14:45] LABS: Uric Acid 5.6 mg/dL (2.4-5.7)
[2024-04-05] MEDS: pantoprazole 40 mg SDV IVP (14:47)
[2024-04-05] MEDS: piperacillin-tazobactam 3.375 GM in sodium chloride 0.9% (plus) 50 ML IV (14:54)
[2024-04-05] MEDS: acetaminophen 325 mg Tablet 650 MG PO ×2 (14:54→21:18)
[2024-04-05] MEDS: sodium chloride 0.9% 1,000 ML 75 ML IV (14:55)
[2024-04-05 15:40] LABS: LAB Peripheral Smear Sent for Review
[2024-04-05 15:45] LABS: Potassium, Radom Urine 33 mmol/L; Urine Random Chloride 80 mmol/L; Urine Random Sodium 69 mmol/L
[2024-04-05 16:08] LABS: Basophils % 0.3 %; Eosinophils % 0.1 %; Lymphocytes # 0.1 10^3/uL (0.8-4.8); Lymphocytes % 1.8 %; Mean Corpuscular HGB Conc 28.8 g/dL (30-55); Mean Corpuscular Hemoglobin 29.1 pg (27-33); Mean Corpuscular Volume 101.3 fl (85-98); Mean Platelet Volume 12.1 fL (7.4-10.4); Monocytes # 0.3 10^3/uL (0.2-0.9); Monocytes % 4.2 %; Neutrophils # 6.84 10^3/uL (1.8-7.7); Neutrophils % 93.2 %; Nucleated Red Blood Cells % 0 %; Platelet Count 127 10^3/cmm (157-399); Red Blood Count 2.37 10^6/uL (3.85-5.65); Red Cell Distribution Width 15.3 % (12.1-15.1); White Blood Count 7.34 10^3/uL (3.29-11.43)
[2024-04-05 16:25] LABS: Complement C3 94 mg/dL (90-180)
[2024-04-05 16:53] LABS: Hepatitis B Core AB, Total Non-Reactive (Nonreactive); Hepatitis B Surface AB < 3.5 (11.5-1000); Hepatitis B Surface Antigen Non-Reactive (Nonreactive); Hepatitis C Virus Antibody Non-Reactive (Nonreactive)
--- NOTE | 2024-04-05 22:51 | ECG_ITS ---
[facility] Date: 2024-04[facility]05 Pat Name: Venice Doe Department: Room: 260 Gender: Female Analysis Consultant: : 1945 Requested By: Travis Denton Order Number: [id number] Reading MD: VIKA DOMINGUEZ Measurements Intervals [place] Rate: 71 P: 0 NV: 0 QRS: 40 QRSD: 110 T: 70 QT: 346 QTc: 378 Interpretive Statements SINUS RYTHM Early repolarization Compared to ECG 02/19/2024 15:27:10 ST (T wave) deviation now present Ventricular premature complex(es) no longer present Aberrant conduction of supraventricular beat(s) no longer present Electronically Signed On 04-07-2024 23:28:40 ABLE BODIED WATCHMAN by VIKA DOMINGUEZ [email or web address]
--- NOTE | 2024-04-05 23:00 | PC.NURSE ---
Patient started showing ST elevation on telemetry. Nurse checked on patient and patient denied any chest pain, SOB, or other symptoms of SD. Nurse contacted Dr. Alex to inform him of changes and that patient was asymptomatic at this time. EKG was done and showed ST elevation. Nurse sent EKG to Dr. Alex who agreed there was ST elevation but it did not look like stemi morphology. Nurse was told by that if a patient becomes symptomatic to contact Patient is resting at this time. Nurse will continue to monitor.
[2024-04-06] VITALS (13 sets, daily range): BP systolic 112–178; BP diastolic 49–69; PULSE 64–115; RESP 16–20; TEMP 36.1–37.2; O2SAT 94–100
[2024-04-06 00:59] LABS: Basophils % 0.3 %; Eosinophils # 0.1 10^3/uL (0.0-0.8); Eosinophils % 0.7 %; Hematocrit 23.9 % (36-47); Lymphocytes # 0.3 10^3/uL (0.8-4.8); Lymphocytes % 3.9 %; Mean Corpuscular HGB Conc 30.1 g/dL (30-55); Mean Corpuscular Hemoglobin 29.6 pg (27-33); Mean Corpuscular Volume 98.4 fl (85-98); Mean Platelet Volume 11.8 fL (7.4-10.4); Monocytes # 0.5 10^3/uL (0.2-0.9); Monocytes % 6.9 %; Neutrophils # 6.01 10^3/uL (1.8-7.7); Neutrophils % 87.8 %; Nucleated Red Blood Cells % 0 %; Platelet Count 111 10^3/cmm (157-399); Red Blood Count 2.43 10^6/uL (3.85-5.65); Red Cell Distribution Width 15.2 % (12.1-15.1); White Blood Count 6.85 10^3/uL (3.29-11.43)
[2024-04-06] MEDS: pantoprazole 40 mg SDV IVP ×2 (01:35→12:59)
[2024-04-06] MEDS: piperacillin-tazobactam 3.375 GM in sodium chloride 0.9% (plus) 50 ML IV ×2 (01:35→12:59)
[2024-04-06 04:08] LABS: Alanine Aminotransferase 8 U/L (0-33); Albumin Level 3.6 g/dL (3.5-5.2); Alkaline Phosphatase 64 U/L (35-105); Anion Gap 10.3 (5-19); Aspartate Amino Transferase 11 U/L (0-32); Blood Urea Nitrogen 61 mg/dL (8-23); Carbon Dioxide 29 mmol/L (22-29); Chloride 111 mmol/L (98-107); Creatinine Clr Calc Pharmacy 14.1129; Globulin 2.3 g/dL (1.3-4.6); Glucose 99 mg/dL (65-115); Magnesium 1.4 mg/dL (1.7-2.3); Osmolality Calculated 317 mOsm/kg (285-295); Potassium 5.3 mmol/L (3.5-5.1); Sodium 145 mmol/L (136-145); Total Bilirubin 0.4 mg/dL (0.15-1.2); Total Protein 5.9 g/dL (6.6-8.7)
[2024-04-06 04:09] LABS: Ferritin 344 ng/mL (15-150); Iron 105 ug/dL (37-145); Percent Saturation 68.1 % (20-50); Phosphorus 3.3 mg/dL (2.5-4.5); Total Iron Binding Capacity 154 mcg/dl; Unsaturated Iron Binding 49 ug/dL (112-347)
[2024-04-06 04:24] LABS: 25 Hydroxy Vitamin D 38 ng/mL (30-100)
[2024-04-06 04:31] LABS: Parathyroid Hormone 115.9 pg/mL (15-65)
[2024-04-06 07:01] LABS: Basophils % 0.4 %; Eosinophils # 0.1 10^3/uL (0.0-0.8); Eosinophils % 1.1 %; Lymphocytes # 0.3 10^3/uL (0.8-4.8); Lymphocytes % 3.6 %; Mean Corpuscular Hemoglobin 29.5 pg (27-33); Mean Corpuscular Volume 98.2 fl (85-98); Mean Platelet Volume 11.6 fL (7.4-10.4); Monocytes # 0.4 10^3/uL (0.2-0.9); Monocytes % 5.7 %; Neutrophils # 6.21 10^3/uL (1.8-7.7); Neutrophils % 88.8 %; Nucleated Red Blood Cells % 0 %; Platelet Count 119 10^3/cmm (157-399); Red Blood Count 2.75 10^6/uL (3.85-5.65); Red Cell Distribution Width 15.8 % (12.1-15.1)
[2024-04-06] MEDS: acetaminophen 325 mg Tablet 650 MG PO ×2 (08:27→17:38)
[2024-04-06] MEDS: amlodipine 10 mg Tablet PO (08:27)
[2024-04-06 08:49] LABS: PROTEIN, TOTAL 6.1 g/dL (6.1-8.1)
--- NOTE | 2024-04-06 08:55 | ECG_ITS ---
[facility] Date: 2024-04-06 Pat Name: Venice Doe Department: Room: 260 Gender: Female Ceo And Founder: : 1945 Requested By: Akilah Altman Order Number: [id number] Siria MD: VIKA DOMINGUEZ Measurements Intervals [place] Rate: 69 P: 269 MO: 117 QRS: 55 QRSD: 86 T: 76 QT: 355 QTc: 381 Interpretive Statements JUNCTIONAL RHYTHM ABNORMAL RHYTHM ECG Compared to ECG 04/05/2024 22:54:48 Junctional rhythm now present Atrial fibrillation no longer present ST (T wave) deviation no longer present Myocardial infarct finding no longer present Electronically Signed On 04-07-2024 23:25:46 HOME WEATHERIZING WORKER by VIKA DOMINGUEZ [email or web address]
[2024-04-06 09:00] LABS: Troponin(5th) Baseline 64 ng/L (0-10)
--- NOTE | 2024-04-06 09:06 | USCV_ITS ---
Venice Sharpe Age: 78 Gender: F : 1945 Exam Date: 04/06/2024 09:28 Ordering Phys: Akilah Altman MD Technologist: Exam Location: [facility] [place] Indication: chf BP: 124 / 74 HR: 70 Rhythm: Sinus Technical Quality: Adequate MEASUREMENTS (Male / Female) Normal Values 2D ECHO LV Diastolic Diameter PLAX 3.1 cm 4.2 - 5.9 / 3.9 - 5.3 cm IVS Diastolic Thickness 1.2 cm 0.6 - 1.0 / 0.6 - 0.9 cm IVS Systolic Thickness 1.5 cm LVPW Diastolic Thickness 1.2 cm 0.6 - 1.0 / 0.6 - 0.9 cm LVPW Systolic Thickness 1.2 cm LVOT Diameter 2.0 cm LV Ejection Fraction 2D Teich 62.2 % LV Ejection Fraction MOD 4C 67.8 % LV Ejection Fraction MOD 2C 53.6 % LV Ejection Fraction 2C AL 52.1 % LA Diameter 3.9 cm RA Systolic Volume 4C AL 32.5 ml RA Systolic Volume 4C MOD 31.4 ml Aorta at Sinotubular Diameter 3.1 cm IVC Diameter 1.9 cm M-MODE LA Ao Ratio MM 1.4 AV Cusp Separation MM 2.6 cm DOPPLER AV Peak Velocity 160.0 cm/s MV Area PHT 3.0 cm squared Mitral E to A Ratio 1.0 TR Peak Velocity 383.0 cm/s TR Peak Gradient 58.7 mmHg TV Peak E Velocity 148.0 cm/s PV Peak Velocity 127.5 cm/s FINDINGS Left Ventricle Normal left ventricular size, systolic function and wall thickness, with no regional wall motion abnormalities. Left ventricular ejection fraction is estimated at 60 %. Grade I/IV diastolic dysfunction (abnormal relaxation filling pattern), normal to mildly elevated filling pressures. Right Ventricle The right ventricle is normal in size and function. Right Atrium The right atrium is normal in size. Left Atrium The left atrium is normal in size. Mitral Valve Mildly thickened mitral valve. No mitral valve stenosis. Trace mitral valve regurgitation. Aortic Valve Structurally normal aortic valve without significant sclerosis or stenosis. There is no aortic regurgitation. Tricuspid Valve Moderate tricuspid valve regurgitation. Pulmonic Valve Structurally normal pulmonic valve without significant stenosis. There is no pulmonic regurgitation. Pericardium Normal pericardium without effusion. Aorta Normal ascending aorta dimension. IVC The inferior vena cava appears normal. CONCLUSIONS Normal left ventricular size, systolic function and wall thickness, with no regional wall motion abnormalities. Left ventricular ejection fraction is estimated at 60 %. Grade I/IV diastolic dysfunction (abnormal relaxation filling pattern), normal to mildly elevated filling pressures. Moderate tricuspid valve regurgitation. Mildly thickened mitral valve. No mitral valve stenosis. Trace mitral valve regurgitation. There is no pericardial effusion. Right atrial pressure is around 5 mm of mercury. Juanpablo Irizarry MD (Electronically Signed) Final Date: 06 April 2024 20:26 S
--- NOTE | 2024-04-06 10:12 | PM.PN ---
Subjective Subjective: denies further bloody stools. no n/v/d/zamora. +CP, SOB, Medications: Reviewed: Yes Medication Review Details: Current Medications Acetaminophen (Acetaminophen 325 Mg Tablet) 650 mg PO Q6H PRN PRN Reason: Mild/Mod Pain Or Temp >/= 101 Last Admin: 04/06/24 08:27 Dose: 650 mg Albuterol/Ipratropium (Ipratropium-Albuterol 3 Ml Neb) 3 ml INHALATION Q6H PRN PRN Reason: SHORTNESS OF BREATH Amlodipine Besylate (Amlodipine 10 Mg Tablet) 10 mg PO DAILY [facility] Last Admin: 04/06/24 08:27 Dose: 10 mg Sodium Chloride (Sodium Chloride 0.9%) 1,000 mls @ 75 mls/hr IV .[id number] [facility] Last Admin: 04/05/24 14:55 Dose: 75 mls/hr Piperacillin Sod/Tazobactam (Sod 3.375 gm/ Sodium Chloride) 50 mls @ 12.5 mls/hr IV Q12H [facility] Last Titration: 04/06/24 07:54 Dose: 0 mls/hr Ondansetron HCl (Ondansetron 2 Mg/Ml Sdv 2 Ml) 4 mg IVP Q8H PRN PRN Reason: vomiting, or N/V if npo Pantoprazole Sodium (Pantoprazole 40 Mg Sdv) 40 mg IVP Q12H [facility] Last Admin: 04/06/24 01:35 Dose: 40 mg Sodium Chloride (Sodium Chloride 0.9% 100 Ml Bag) 50 ml IV PRN PRN PRN Reason: Blood transfusion prime and flush Stop: 04/06/24 19:00 Vitals/I&O/Wt Last Vital Signs Temp 97.9 F 04/06/24 07:59 Pulse 69 04/06/24 07:59 Resp 16 04/06/24 07:59 BP 163/62 04/06/24 07:59 Pulse Ox 97 04/06/24 07:59 O2 Del Method Nasal Cannula 04/06/24 07:59 O2 Flow Rate 3 04/06/24 04:00 04/05/24 04/06/24 04/06/24 22:59 06:59 14:59 Intake Total 50 / 850 350 / 1200 50 / 50 Output Total 225 / 225 Balance -175 / 625 350 / 975 50 / 50 Weight last 48 hrs Weight 45.586 kg Weight 45.359 kg Physical Exam Narrative: vs noted elderly, ill appearing woman in bed heent- nc/at, eomi neck supple lungs -poor air movement b/l heart- s1, s2, +RRR abd soft, nt, nd, + bs ext no edema neuro- a,a, o x3 Data 04/06/24 06:49 04/06/24 03:34 Micro: Microbiology 04/05/24 13:31 Blood Culture - Preliminary Blood SPECIMEN COLLECTED 04/05/24 13:26 Blood Culture - Preliminary Blood SPECIMEN COLLECTED A&P Assessment and plan (1) CKD stage 4 secondary to hypertension: 78 year old female COPD, pericardial effusion s/p window and pericardial biopsy in 2019, Pum HTN, ERICKA, HTN, tibial fracture, cAD. She had CKD stage 4- baseline cr of 2 mg/dl. recent CANDICE to cr of 4 mg/dl associated w/ hyperkalemia. CT scan w/o contrast revealedProximal renal artery atherosclerotic disease bilaterally with 60-70% luminal narrowing. Pt is here now w/ GI bleed- bloody stools. hgb 7.2 and renal aksed to consult for hyperkalemia and CKD. 1. CKD stage 4- i am concerned for GIBSON- will order a renal artery duplex. may consider a CTA -renal fxn stable- d/c iv - given h/o pericardial effusions and joint pains- check serologies -given anemia and thrombocytopenia- can check ldh, retic count, haptaglobin- but normal bili goes against hemolysis -normal complements 2. anemia and ckd- agree w/ prbc. may need epo high iron sat 68%- maybe after blood transfusion check spep, sife, free light chains 3. hyperkalemia- stop oral potassium. low k diet 4. renal bone mineral metabolism- normal vit d , pth elevated 116, ca 10, phos levels normal 5. replace magnesium 6. bicarb 29- likely metabolic compensation for hypercapneic resp acidosis seen and examined w/ RN and Audio-visual equipment pt consents to telehealth visit discussed w/ pt and family Plan see above Attestations Medical Necessity Statement*: anemia, ckd, hypercapneic resp acidosis Time Spent in Patient Care: 16 - 35 minutes (>than 50% of time spent in counselling and/or direct pt care on unit). Coding Level of Care Code Acute Code for Chg Fwd Diagnoses CKD stage 4 secondary to hypertension I12.9; N18.4
--- NOTE | 2024-04-06 10:29 | ANES.PREANE2 ---
Pre-Anesthetic Assessment Height/Weight: Height 1.57 m Weight 45.586 kg Temp Pulse Resp BP Pulse Ox O2 Del Method O2 Flow Rate 97.9 F 69 16 163/62 97 Nasal Cannula 3 04/06/24 07:59 04/06/24 07:59 04/06/24 07:59 04/06/24 07:59 04/06/24 07:59 04/06/24 07:59 04/06/24 04:00 Preop Diagnosis: GI Bleed Operation Date: 04/06/24 11:15 Proposed Procedures p EGD(Not Applicable) - Lupillo Aparicio MD Familial anesthetic complications: none Was Beta Sonia taken within 24 hours: N/A Was Clonidine taken within 24 hours: N/A Social No alcohol and No tobacco Quit 3 years ago Exam alert, oriented x 3 and regular rate & rhythm Crackles throughout, appears SOB, States it is her normal status. Airway Submandibular: within normal limits Cervical ROM: within normal limits Mallampati: Class II Dentition: false History/ROS No significant history except as noted and No significant complaints Pulmonary Asthma, Chronic Obstructive Pulmonary Disease, Cough, Exertional Dyspnea and Shortness of Breath CV/HEM Atrial Fibrillation and Hypertension Chronic Renal Failure Hepatic None reported GI None reported Metabolic None reported Musc/skel None reported Neuropsych None reported Anesthetic Plan ASA status: 4 Anesthesia: MAC Risk of > 500 ml blood loss (7ml/kg in children): No Medications/Allergies Home Medications Medication Instructions Recorded Confirmed Last Taken Type aspirin 81 mg tablet,delayed 81 mg PO DAILY 11/06/22 04/05/24 02/17/24 History release hydrocodone 10 mg-acetaminophen 1 tab PO Q6H PRN Pain 11/06/22 04/05/24 02/17/24 History 325 mg tablet Oxygen NC 2-3 L/min #1 ea 11/12/22 04/05/24 Unknown Rx oxygen at 2/L min #1 ea 12/09/22 04/05/24 Unknown Rx metoprolol tartrate 25 mg tablet 25 mg PO BID 30 days #180 tabs 03/30/23 04/05/24 02/17/24 Rx GELY KNEE BRACE #1 ea 05/17/23 04/05/24 Unknown Rx Wheel Chair #1 ea 05/21/23 04/05/24 Unknown Rx Hinged Knee Brace #1 ea 07/20/23 04/05/24 Unknown Rx amlodipine 10 mg tablet 10 mg PO DAILY high blood pressure 12/09/23 04/05/24 02/17/24 Rx #90 tabs furosemide 20 mg tablet (Lasix) 20 mg PO BID #60 tabs 04/03/24 04/05/24 Unknown Rx ferrous sulfate 325 mg (65 mg 325 mg PO DAILY 04/05/24 04/05/24 Unknown History iron) tablet (FeroSul) fluticasone propionate 115 2 puff inhalation BID 04/05/24 04/05/24 Unknown History mcg-salmeterol 21 mcg/actuation HFA inhaler (Advair HFA) gabapentin 300 mg capsule 300 mg PO QPM 04/05/24 04/05/24 Unknown History potassium chloride 10 mEq 10 meq PO DAILY 04/05/24 04/05/24 Unknown History tablet,extended release prazosin 1 mg capsule 1 mg PO BID 04/05/24 04/05/24 Unknown History ropinirole 0.5 mg tablet 0.5 mg PO QPM 04/05/24 04/05/24 Unknown History Allergies Allergy/AdvReac Type Severity Reaction Status Date / Time No Known Allergies Allergy Verified 02/18/24 16:23 Current Medications Generic Name Dose Route Start Last Admin Trade Name Freq PRN Reason Stop Dose Admin Acetaminophen 650 mg 04/05/24 13:07 04/06/24 08:27 Acetaminophen 325 Mg Tablet PO 650 mg Q6H PRN Administration Mild/Mod Pain Or Temp >/= 101 Amlodipine Besylate 10 mg 04/06/24 09:00 04/06/24 08:27 Amlodipine 10 Mg Tablet PO 10 mg DAILY [facility] Administration Piperacillin Sod/Tazobactam 50 mls @ 12.5 mls/hr 04/05/24 13:30 04/06/24 07:54 Sod 3.375 gm/ Sodium Chloride IV Infused Q12H [facility] Infusion Pantoprazole Sodium 40 mg 04/05/24 13:15 04/06/24 01:35 Pantoprazole 40 Mg Sdv IVP 40 mg Q12H [facility] Administration Additional Medication Information Current Medications Acetaminophen (Acetaminophen 325 Mg Tablet) 650 mg PO Q6H PRN PRN Reason: Mild/Mod Pain Or Temp >/= 101 Last Admin: 04/06/24 08:27 Dose: 650 mg Albuterol/Ipratropium (Ipratropium-Albuterol 3 Ml Neb) 3 ml INHALATION Q6H PRN PRN Reason: SHORTNESS OF BREATH Amlodipine Besylate (Amlodipine 10 Mg Tablet) 10 mg PO DAILY [facility] Last Admin: 04/06/24 08:27 Dose: 10 mg Sodium Chloride (Sodium Chloride 0.9%) 1,000 mls @ 75 mls/hr IV .[id number] [facility] Last Admin: 04/05/24 14:55 Dose: 75 mls/hr Piperacillin Sod/Tazobactam (Sod 3.375 gm/ Sodium Chloride) 50 mls @ 12.5 mls/hr IV Q12H [facility] Last Titration: 04/06/24 07:54 Dose: 0 mls/hr Ondansetron HCl (Ondansetron 2 Mg/Ml Sdv 2 Ml) 4 mg IVP Q8H PRN PRN Reason: vomiting, or N/V if npo Pantoprazole Sodium (Pantoprazole 40 Mg Sdv) 40 mg IVP Q12H [facility] Last Admin: 04/06/24 01:35 Dose: 40 mg Sodium Chloride (Sodium Chloride 0.9% 100 Ml Bag) 50 ml IV PRN PRN PRN Reason: Blood transfusion prime and flush Stop: 04/06/24 19:00 [facility] Anesthesia Medical History Asymptomatic bradycardia C. difficile diarrhea Bilateral shoulder pain CKD (chronic kidney disease) stage 3, GFR 30-59 ml/min Chronic low back pain with right-sided sciatica [facility], Dr. Falcon Hypertension COPD (chronic obstructive pulmonary disease) Asthma Anxiety Oxygen dependent Surgical History History of hip surgery History of ankle surgery History of back surgery Hx of hysterectomy Family History Father No problems noted. Mother Stroke Social History Smoking and tobacco/nicotine status: former use of tobacco/nicotine Quit status (tobacco/nicotine): has quit using Year quit tobacco: 2021 Former quit date comment: 1ppd X 60 years Second hand smoke exposure: No Alcohol intake: former Substance/Drug Use: never Data Anesthesia 04/06/24 06:49 04/06/24 03:34 Short CBC 04/05/24 04/05/24 04/06/24 Range/Units 09:18 15:25 00:48 WBC 6.29 7.34 6.85 (3.29-11.43) 10^3/uL Hgb 7.20 L 6.90 L 7.20 L (11.27-16.99) g/dL Hct 25.0 L 24.0 L 23.9 L (36-47) % MCV 102.5 H 101.3 H 98.4 H (85-98) fl Plt Count 129 L 127 L 111 L (157-399) 10^3/cmm Neut % (Auto) 88.7 93.2 87.8 % Neut # (Auto) 5.58 6.84 6.01 (1.8-7.7) 10^3/uL 04/06/24 Range/Units 06:49 WBC 7.00 (3.29-11.43) 10^3/uL Hgb 8.10 L (11.27-16.99) g/dL Hct 27.0 L (36-47) % MCV 98.2 H (85-98) fl Plt Count 119 L (157-399) 10^3/cmm Neut % (Auto) 88.8 % Neut # (Auto) 6.21 (1.8-7.7) 10^3/uL BMP 04/05/24 04/06/24 09:18 03:34 Sodium 143 145 Potassium 5.7 H 5.3 H Chloride 107 111 H Carbon Dioxide 28 29 BUN 66 H 61 H Creatinine 2.4 H 2.5 H Glucose 155 H 99 Calcium 10.3 10.0 Cardiac Enzymes 04/06/24 04/06/24 Range/Units 06:49 09:01 Troponin T 5th Gen ng/L Cancelled Troponin T Baseline 64 H (0-10) ng/L Troponin T 120 Minute 61.50 H (0-10) ng/L Delta Troponin T -2.50 L (0-10) ABS# Liver Function 04/05/24 04/06/24 Range/Units 09:18 03:34 Total Bilirubin 0.2 0.4 (0.15-1.2) mg/dL AST 9 11 (0-32) U/L ALT 7 8 (0-33) U/L Alkaline Phosphatase 64 64 (35-105) U/L Albumin 3.8 3.6 (3.5-5.2) g/dL Urine 04/05/24 Range/Units 11:56 Urine Color Yellow (Yellow) Urine Appearance Cloudy A (CLEAR) Urine pH 5.0 (5-7) Ur Specific [place] 1.012 (1.005-1.030) Urine Protein 2+ A (Negative) Urine Glucose (UA) Negative (Normal) Urine Ketones Negative (Negative) Urine Nitrate Negative (Negative) Urine Bilirubin Negative (Negative) Ur Leukocyte Esterase Negative (Negative) Urine RBC 0-2 (0-2) /hpf Urine WBC 0-5 (0-5) /hpf Blood Bank 04/05/24 10:12 Blood Type O Positive Rho(D) Type Rh positive Antibody Screen Negative Coags 04/05/24 09:18 PT 12.60 INR 0.88 APTT 25.7 Microbiology 04/05/24 13:31 Blood Culture - Preliminary Blood SPECIMEN COLLECTED 04/05/24 13:26 Blood Culture - Preliminary Blood SPECIMEN COLLECTED Cardiac Studies: Echocardiogram 02/19/24 Cardiac Event Monitor 11/16/22
--- NOTE | 2024-04-06 10:30 | ANES.PREANE2 ---
Pre-Anesthetic Assessment Height/Weight: Height 5 ft 2 in Weight 100 lb 8 oz Temp Pulse Resp BP Pulse Ox O2 Del Method O2 Flow Rate 97.9 F 69 16 163/62 97 Nasal Cannula 3 04/06/24 07:59 04/06/24 07:59 04/06/24 07:59 04/06/24 07:59 04/06/24 07:59 04/06/24 07:59 04/06/24 04:00 Operation Date: 04/06/24 11:15 Proposed Procedures p EGD(Not Applicable) - Lupillo Aparicio MD Anesthetic Plan ASA status: 3 Anesthesia: MAC Other: Patient initially admitted 04/05 for acute GI bleed. Bright red blood in stool CT abdomen/pelvis showing a new compression fracture at T12 Hemoglobin 6.9 at admission History of CKD stage IV, nephrology following Renal function stable EKG performed yesterday showing ST elevation. This is similar to previous, cardiology has been consulted and they do not feel like this is acute. Prior echo 02/19/2024 reviewed and EF 60 to 65% Labs today reviewed and acceptable for procedure, K+ 5.3. Hemoglobin 8.1 Plan for MAC anesthetic Medications/Allergies Home Medications Medication Instructions Recorded Confirmed Last Taken Type aspirin 81 mg tablet,delayed 81 mg PO DAILY 11/06/22 04/05/24 02/17/24 History release hydrocodone 10 mg-acetaminophen 1 tab PO Q6H PRN Pain 11/06/22 04/05/24 02/17/24 History 325 mg tablet Oxygen NC 2-3 L/min #1 11/12/22 04/05/24 Unknown Rx oxygen at 2/L min #1 ea 12/09/22 04/05/24 Unknown Rx metoprolol tartrate 25 mg tablet 25 mg PO BID 30 days #180 tabs 03/30/23 04/05/24 02/17/24 Rx GELY KNEE BRACE #1 ea 05/17/23 04/05/24 Unknown Rx Wheel Chair #1 ea 05/21/23 04/05/24 Unknown Rx Hinged Knee Brace #1 ea 07/20/23 04/05/24 Unknown Rx amlodipine 10 mg tablet 10 mg PO DAILY high blood pressure 12/09/23 04/05/24 02/17/24 Rx #90 tabs furosemide 20 mg tablet (Lasix) 20 mg PO BID #60 tabs 04/03/24 04/05/24 Unknown Rx ferrous sulfate 325 mg (65 mg 325 mg PO DAILY 04/05/24 04/05/24 Unknown History iron) tablet (FeroSul) fluticasone propionate 115 2 puff inhalation BID 04/05/24 04/05/24 Unknown History mcg-salmeterol 21 mcg/actuation HFA inhaler (Advair HFA) gabapentin 300 mg capsule 300 mg PO QPM 04/05/24 04/05/24 Unknown History potassium chloride 10 mEq 10 meq PO DAILY 04/05/24 04/05/24 Unknown History tablet,extended release prazosin 1 mg capsule 1 mg PO BID 04/05/24 04/05/24 Unknown History ropinirole 0.5 mg tablet 0.5 mg PO QPM 04/05/24 04/05/24 Unknown History Allergies Allergy/AdvReac Type Severity Reaction Status Date / Time No Known Allergies Allergy Verified 02/18/24 16:23 Current Medications Generic Name Dose Route Start Last Admin Trade Name Freq PRN Reason Stop Dose Admin Acetaminophen 650 mg 04/05/24 13:07 04/06/24 08:27 Acetaminophen 325 Mg Tablet PO 650 mg Q6H PRN Administration Mild/Mod Pain Or Temp >/= 101 Amlodipine Besylate 10 mg 04/06/24 09:00 04/06/24 08:27 Amlodipine 10 Mg Tablet PO 10 mg DAILY [facility] Administration Piperacillin Sod/Tazobactam 50 mls @ 12.5 mls/hr 04/05/24 13:30 04/06/24 07:54 Sod 3.375 gm/ Sodium Chloride IV Infused Q12H [facility] Infusion Pantoprazole Sodium 40 mg 04/05/24 13:15 04/06/24 01:35 Pantoprazole 40 Mg Sdv IVP 40 mg Q12H [facility] Administration Additional Medication Information Current Medications Acetaminophen (Acetaminophen 325 Mg Tablet) 650 mg PO Q6H PRN PRN Reason: Mild/Mod Pain Or Temp >/= 101 Last Admin: 04/06/24 08:27 Dose: 650 mg Albuterol/Ipratropium (Ipratropium-Albuterol 3 Ml Neb) 3 ml INHALATION Q6H PRN PRN Reason: SHORTNESS OF BREATH Amlodipine Besylate (Amlodipine 10 Mg Tablet) 10 mg PO DAILY [facility] Last Admin: 04/06/24 08:27 Dose: 10 mg Sodium Chloride (Sodium Chloride 0.9%) 1,000 mls @ 75 mls/hr IV .[id number] [facility] Last Admin: 04/05/24 14:55 Dose: 75 mls/hr Piperacillin Sod/Tazobactam (Sod 3.375 gm/ Sodium Chloride) 50 mls @ 12.5 mls/hr IV Q12H [facility] Last Titration: 04/06/24 07:54 Dose: 0 mls/hr Ondansetron HCl (Ondansetron 2 Mg/Ml Sdv 2 Ml) 4 mg IVP Q8H PRN PRN Reason: vomiting, or N/V if npo Pantoprazole Sodium (Pantoprazole 40 Mg Sdv) 40 mg IVP Q12H [facility] Last Admin: 04/06/24 01:35 Dose: 40 mg Sodium Chloride (Sodium Chloride 0.9% 100 Ml Bag) 50 ml IV PRN PRN PRN Reason: Blood transfusion prime and flush Stop: 04/06/24 19:00 [facility] Anesthesia Medical History Asymptomatic bradycardia C. difficile diarrhea Bilateral shoulder pain CKD (chronic kidney disease) stage 3, GFR 30-59 ml/min Chronic low back pain with right-sided sciatica [facility], Dr. Falcon Hypertension COPD (chronic obstructive pulmonary disease) Asthma Anxiety Oxygen dependent Surgical History History of hip surgery History of ankle surgery History of back surgery Hx of hysterectomy Family History Father No problems noted. Mother Stroke Social History Smoking and tobacco/nicotine status: former use of tobacco/nicotine Quit status (tobacco/nicotine): has quit using Year quit tobacco: 2021 Former quit date comment: 1ppd X 60 years Second hand smoke exposure: No Alcohol intake: former Substance/Drug Use: never Data Anesthesia 04/06/24 06:49 04/06/24 03:34 Short CBC 04/05/24 04/05/24 04/06/24 Range/Units 09:18 15:25 00:48 WBC 6.29 7.34 6.85 (3.29-11.43) 10^3/uL Hgb 7.20 L 6.90 L 7.20 L (11.27-16.99) g/dL Hct 25.0 L 24.0 L 23.9 L (36-47) % MCV 102.5 H 101.3 H 98.4 H (85-98) fl Plt Count 129 L 127 L 111 L (157-399) 10^3/cmm Neut % (Auto) 88.7 93.2 87.8 % Neut # (Auto) 5.58 6.84 6.01 (1.8-7.7) 10^3/uL 04/06/24 Range/Units 06:49 WBC 7.00 (3.29-11.43) 10^3/uL Hgb 8.10 L (11.27-16.99) g/dL Hct 27.0 L (36-47) % MCV 98.2 H (85-98) fl Plt Count 119 L (157-399) 10^3/cmm Neut % (Auto) 88.8 % Neut # (Auto) 6.21 (1.8-7.7) 10^3/uL BMP 04/05/24 04/06/24 09:18 03:34 Sodium 143 145 Potassium 5.7 H 5.3 H Chloride 107 111 H Carbon Dioxide 28 29 BUN 66 H 61 H Creatinine 2.4 H 2.5 H Glucose 155 H 99 Calcium 10.3 10.0 Cardiac Enzymes 04/06/24 04/06/24 Range/Units 06:49 09:01 Troponin T 5th Gen ng/L Cancelled Troponin T Baseline 64 H (0-10) ng/L Troponin T 120 Minute 61.50 H (0-10) ng/L Delta Troponin T -2.50 L (0-10) ABS# Liver Function 04/05/24 04/06/24 Range/Units 09:18 03:34 Total Bilirubin 0.2 0.4 (0.15-1.2) mg/dL AST 9 11 (0-32) U/L ALT 7 8 (0-33) U/L Alkaline Phosphatase 64 64 (35-105) U/L Albumin 3.8 3.6 (3.5-5.2) g/dL Urine 04/05/24 Range/Units 11:56 Urine Color Yellow (Yellow) Urine Appearance Cloudy A (CLEAR) Urine pH 5.0 (5-7) Ur Specific [place] 1.012 (1.005-1.030) Urine Protein 2+ A (Negative) Urine Glucose (UA) Negative (Normal) Urine Ketones Negative (Negative) Urine Nitrate Negative (Negative) Urine Bilirubin Negative (Negative) Ur Leukocyte Esterase Negative (Negative) Urine RBC 0-2 (0-2) /hpf Urine WBC 0-5 (0-5) /hpf Blood Bank 04/05/24 10:12 Blood Type O Positive Rho(D) Type Rh positive Antibody Screen Negative Coags 04/05/24 09:18 PT 12.60 INR 0.88 APTT 25.7 Microbiology 04/05/24 13:31 Blood Culture - Preliminary Blood SPECIMEN COLLECTED 04/05/24 13:26 Blood Culture - Preliminary Blood SPECIMEN COLLECTED Cardiac Studies: Echocardiogram 02/19/24 Cardiac Event Monitor 11/16/22
[2024-04-06 10:41] LABS: Reticulocyte % 1.7 % (0.5-2.0)
--- NOTE | 2024-04-06 10:55 | P.MISC_ITS ---
Miscellaneous Note Purpose of Documentation: Update on patient care Note: 78-year-old female who presented with po ssible upper GI bleeding as documented with melena as well as colitis rectal bleeding. We took her today for upper endoscopy. Upper endoscopy showed evidence of erosive gastritis with several areas of erosion in the antrum, no active bleeding at this time. At this point I will recommend that we continue high-dose PPI as well as Carafate and we will follow-up in an outpatient basis for repeat EGD and colonoscopy. I agree with medical management of colitis as guided by medical team. Hemoglobin has been stable.
--- NOTE | 2024-04-06 11:04 | PM.CONSULT ---
Providers/Reason For Consult Consulting Physician/Specialty*: Juanpablo Irizarry MD Reason for Consult*: Abnormal EKG Preop clearance for EGD/colonoscopy Requesting Physician: Dr. Montalvo Attending Physician: Akilah Altman MD Primary Care Provider: Jj Monk MD History of Present Illness History of Present Illness Venice Doe is a 78 year old female past medical history significant for COPD tobacco abuse CKD history of recurrent pericardial effusion/pericardial window, atrial flutter was admitted with anemia noted to have GI bleed, she was monitored and treated on the telemetry. I was called by our hospitalist colleague with the concerns of ST elevation on the telemetry and EKG and inferior lead and anterior reciprocal changes. Patient remains asymptomatic denies any chest pain. I reviewed EKG which has not changed from prior to admission patient had inferolateral ST elevation at the baseline mimicking more of a early repolarization versus pericarditis however there is no pathognomonic IN depression seen consistently which is the hallmark for pericarditis. Patient denies any prior history of coronary artery disease though she has risk factors for it. Since patient remains asymptomatic without any hemodynamic compromise or arrhythmia I think EKG changes are chronic and not new and not representing myocardial injury. We will therefore cleared the patient under acceptable risk for anesthesia and procedure such as EGD/colonoscopy. Review of Systems General: Reports: 10 or more systems reviewed and unremarkable except in HPI and below Narrative: weak, bloody stools. STEIN, nausea, sob, no cp, no zamora, no edema. poor appetite. Const: Denies: fever(s) or chills Card: Denies: chest pain Resp: Denies: dyspnea GI: Reports: abdominal pain, nausea, hematochezia and melena : Denies: dysuria, urinary frequency or urinary urgency Musc: Denies: neck pain, back pain or joint warmth Skin/Breast: Denies: rash All/Imm: Denies: acute wheezing Medications/Allergies Home Medications Medication Instructions Recorded Confirmed Last Taken Type aspirin 81 mg tablet,delayed 81 mg PO DAILY 11/06/22 04/05/24 02/17/24 History release hydrocodone 10 mg-acetaminophen 1 tab PO Q6H PRN Pain 11/06/22 04/05/24 02/17/24 History 325 mg tablet Oxygen NC 2-3 L/min #1 ea 11/12/22 04/05/24 Unknown Rx oxygen at 2/L min #1 ea 12/09/22 04/05/24 Unknown Rx metoprolol tartrate 25 mg tablet 25 mg PO BID 30 days #180 tabs 03/30/23 04/05/24 02/17/24 Rx GELY KNEE BRACE #1 ea 05/17/23 04/05/24 Unknown Rx Wheel Chair #1 ea 05/21/23 04/05/24 Unknown Rx Hinged Knee Brace #1 ea 07/20/23 04/05/24 Unknown Rx amlodipine 10 mg tablet 10 mg PO DAILY high blood pressure 12/09/23 04/05/24 02/17/24 Rx #90 tabs furosemide 20 mg tablet (Lasix) 20 mg PO BID #60 tabs 04/03/24 04/05/24 Unknown Rx ferrous sulfate 325 mg (65 mg 325 mg PO DAILY 04/05/24 04/05/24 Unknown History iron) tablet (FeroSul) fluticasone propionate 115 2 puff inhalation BID 04/05/24 04/05/24 Unknown History mcg-salmeterol 21 mcg/actuation HFA inhaler (Advair HFA) gabapentin 300 mg capsule 300 mg PO QPM 04/05/24 04/05/24 Unknown History potassium chloride 10 mEq 10 meq PO DAILY 04/05/24 04/05/24 Unknown History tablet,extended release prazosin 1 mg capsule 1 mg PO BID 04/05/24 04/05/24 Unknown History ropinirole 0.5 mg tablet 0.5 mg PO QPM 04/05/24 04/05/24 Unknown History Allergies Allergy/AdvReac Type Severity Reaction Status Date / Time No Known Allergies Allergy Verified 02/18/24 16:23 Current Medications Generic Name Dose Route Start Last Admin Trade Name Freq PRN Reason Stop Dose Admin Acetaminophen 650 mg 04/05/24 13:07 04/06/24 08:27 Acetaminophen 325 Mg Tablet PO 650 mg Q6H PRN Administration Mild/Mod Pain Or Temp >/= 101 Amlodipine Besylate 10 mg 04/06/24 09:00 04/06/24 08:27 Amlodipine 10 Mg Tablet PO 10 mg DAILY JASBIR Administration Piperacillin Sod/Tazobactam 50 mls @ 12.5 mls/hr 04/05/24 13:30 04/06/24 07:54 Sod 3.375 gm/ Sodium Chloride IV Infused Q12H JASBIR Infusion Pantoprazole Sodium 40 mg 04/05/24 13:15 04/06/24 01:35 Pantoprazole 40 Mg Sdv IVP 40 mg Q12H JASBIR Administration Additional Medication Information Current Medications Acetaminophen (Acetaminophen 325 Mg Tablet) 650 mg PO Q6H PRN PRN Reason: Mild/Mod Pain Or Temp >/= 101 Last Admin: 04/06/24 08:27 Dose: 650 mg Albuterol/Ipratropium (Ipratropium-Albuterol 3 Ml Neb) 3 ml INHALATION Q6H PRN PRN Reason: SHORTNESS OF BREATH Amlodipine Besylate (Amlodipine 10 Mg Tablet) 10 mg PO DAILY [facility] Last Admin: 04/06/24 08:27 Dose: 10 mg Sodium Chloride (Sodium Chloride 0.9%) 1,000 mls @ 75 mls/hr IV .[id number] [facility] Last Admin: 04/05/24 14:55 Dose: 75 mls/hr Piperacillin Sod/Tazobactam (Sod 3.375 gm/ Sodium Chloride) 50 mls @ 12.5 mls/hr IV Q12H [facility] Last Titration: 04/06/24 07:54 Dose: 0 mls/hr Ondansetron HCl (Ondansetron 2 Mg/Ml Sdv 2 Ml) 4 mg IVP Q8H PRN PRN Reason: vomiting, or N/V if npo Pantoprazole Sodium (Pantoprazole 40 Mg Sdv) 40 mg IVP Q12H [facility] Last Admin: 04/06/24 01:35 Dose: 40 mg Sodium Chloride (Sodium Chloride 0.9% 100 Ml Bag) 50 ml IV PRN PRN PRN Reason: Blood transfusion prime and flush Stop: 04/06/24 19:00 PFSH Acute PFSH: Medical History Asymptomatic bradycardia C. difficile diarrhea Bilateral shoulder pain CKD (chronic kidney disease) stage 3, GFR 30-59 ml/min Chronic low back pain with right-sided sciatica [facility], Dr. Falcon Hypertension COPD (chronic obstructive pulmonary disease) Asthma Anxiety Oxygen dependent Surgical History History of hip surgery History of ankle surgery History of back surgery Hx of hysterectomy Family History Father No problems noted. Mother Stroke Social History Smoking and tobacco/nicotine status: former use of tobacco/nicotine Quit status (tobacco/nicotine): has quit using Year quit tobacco: 2021 Former quit date comment: 1ppd X 60 years Second hand smoke exposure: No Alcohol intake: former Substance/Drug Use: never Dietary Habits: Current diet type/program: regular Caffeine: Yes Vitals/I&O/Wt Last Vital Signs Temp 97.0 F L 04/06/24 10:56 Pulse 69 04/06/24 10:56 Resp 20 H 04/06/24 10:56 BP 112/55 04/06/24 10:56 Pulse Ox 100 04/06/24 10:56 O2 Del Method Simple Mask 04/06/24 10:56 O2 Flow Rate 6 04/06/24 10:56 04/05/24 04/06/24 04/06/24 22:59 06:59 14:59 Intake Total 50 / 850 350 / 1200 1050 / 1050 Output Total 225 / 225 Balance -175 / 625 350 / 975 1050 / 1050 Weight last 48 hrs Weight 100 lb 8 oz Weight 100 lb Physical Exam Const: OTHER: GENERAL: Patient is alert, awake and oriented x3. HEART: Regular S1 and S2. No murmur, rub or gallop. LUNGS: Decreased breath bilaterally. CENTRAL NERVOUS SYSTEM: Grossly nonfocal. EXTREMITIES: Lower extremities with out edema bilaterally. Data 04/06/24 15:06 04/06/24 03:34 Micro: Microbiology 04/06/24 09:55 Occult Blood (FIT) - Final Stool 04/05/24 13:31 Blood Culture - Preliminary Blood SPECIMEN COLLECTED 04/05/24 13:26 Blood Culture - Preliminary Blood SPECIMEN COLLECTED A&P Assessment and plan (1) Abnormal EKG: (2) Preoperative clearance: (3) Acute anemia: (4) CKD stage 4 secondary to hypertension: (5) COPD (chronic obstructive pulmonary disease): Qualifiers: COPD type: emphysema Emphysema type: panlobular Qualified Code(s): J43.1 - Panlobular emphysema Plan As defined above patient abnormal EKG consistent with mild to moderate ST elevation in the inferolateral leads are more suggestive of early repolarization/persistent pericarditis and not representing myocardial injury or persistent ischemia, we therefore clear the patient to proceed with EGD/colonoscopy anteroseptal pelvis send disease and surgery. Echocardiogram will be obtained to assess LV function wall motion abnormality. Continue current management. Keep hemoglobin above 7.0. We will follow-up on the patient. Consult Attestations Medical Necessity Statement: Patient require continuation hospitalization for above defined care. Coding Level of Care Code Acute Code for Chg Fwd Diagnoses Abnormal EKG R94.31 Preoperative clearance Z01.818 Acute anemia D64.9 CKD stage 4 secondary to hypertension I12.9; N18.4 Panlobular emphysema J43.1 COPD type: emphysema Emphysema type: panlobular
[2024-04-06 11:05] LABS: Lactate Dehydrogenase 147 U/L (135-214)
[2024-04-06 11:05] LABS: C.Diff PCR (Lab) NEGATIVE (Negative)
--- NOTE | 2024-04-06 11:20 | ANE.PACU2 ---
Inpatient post-anesthesia follow up: Airway intact: Yes Vital signs: Temperature 97.5 F Pulse Rate 71 Respiratory Rate 16 Blood Pressure 155/65 Pulse Oximetry 97 Oxygen Delivery Me thod Nasal Cannula Oxygen Flow Rate 3 Fraction of Inspir ed Oxygen Hydration adequate: Yes Nausea and vomiting: No Pain level: 1 Mental status: Baseline
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
[2024-04-06] MEDS: magnesium sulfate premix 1 GM/100 ML PIGGYBACK IV (12:59)
--- NOTE | 2024-04-06 14:55 | ECG_ITS ---
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
[2024-04-06] MEDS: HYDROcodone-acetaminophen 10-325 mg Tablet 1 TAB PO (15:44)
[2024-04-06 15:58] LABS: Basophils % 0.4 %; Eosinophils # 0.1 10^3/uL (0.0-0.8); Eosinophils % 1.5 %; Lymphocytes # 0.2 10^3/uL (0.8-4.8); Lymphocytes % 3.5 %; Mean Corpuscular HGB Conc 30.4 g/dL (30-55); Mean Corpuscular Hemoglobin 29.8 pg (27-33); Mean Corpuscular Volume 98.1 fl (85-98); Mean Platelet Volume 11.5 fL (7.4-10.4); Monocytes # 0.4 10^3/uL (0.2-0.9); Monocytes % 5.2 %; Neutrophils # 6.02 10^3/uL (1.8-7.7); Neutrophils % 88.8 %; Nucleated Red Blood Cells % 0 %; Platelet Count 122 10^3/cmm (157-399); Red Blood Count 2.65 10^6/uL (3.85-5.65); Red Cell Distribution Width 15.9 % (12.1-15.1); White Blood Count 6.78 10^3/uL (3.29-11.43)
[2024-04-06 16:19] LABS: Anti-Double Strand DNA AB <1 IU/mL
[2024-04-06 23:15] LABS: Basophils % 0.7 %; Eosinophils # 0.2 10^3/uL (0.0-0.8); Eosinophils % 3.5 %; Hematocrit 24.7 % (36-47); Lymphocytes # 0.3 10^3/uL (0.8-4.8); Mean Corpuscular HGB Conc 30.4 g/dL (30-55); Mean Corpuscular Hemoglobin 29.8 pg (27-33); Mean Platelet Volume 11.2 fL (7.4-10.4); Monocytes # 0.5 10^3/uL (0.2-0.9); Monocytes % 7.8 %; Neutrophils % 82.8 %; Nucleated Red Blood Cells % 0 %; Platelet Count 110 10^3/cmm (157-399); Red Blood Count 2.52 10^6/uL (3.85-5.65); Red Cell Distribution Width 15.8 % (12.1-15.1); White Blood Count 6.03 10^3/uL (3.29-11.43)
[2024-04-07] VITALS (16 sets, daily range): BP systolic 137–165; BP diastolic 51–69; PULSE 56–88; RESP 16–22; TEMP 36.7–37.3; O2SAT 89–99; BMI 18.3
[2024-04-07] MEDS: piperacillin-tazobactam 3.375 GM in sodium chloride 0.9% (plus) 50 ML IV ×2 (01:07→14:31)
[2024-04-07] MEDS: pantoprazole 40 mg SDV IVP ×2 (01:07→14:30)
[2024-04-07 05:20] LABS: Basophils % 0.7 %; Eosinophils # 0.3 10^3/uL (0.0-0.8); Eosinophils % 5.1 %; Hematocrit 25.3 % (36-47); Lymphocytes # 0.3 10^3/uL (0.8-4.8); Lymphocytes % 4.4 %; Mean Corpuscular Hemoglobin 29.7 pg (27-33); Mean Corpuscular Volume 98.8 fl (85-98); Mean Platelet Volume 10.8 fL (7.4-10.4); Monocytes # 0.3 10^3/uL (0.2-0.9); Monocytes % 5.7 %; Neutrophils # 4.98 10^3/uL (1.8-7.7); Neutrophils % 83.8 %; Nucleated Red Blood Cells % 0 %; Platelet Count 119 10^3/cmm (157-399); Red Blood Count 2.56 10^6/uL (3.85-5.65); Red Cell Distribution Width 15.9 % (12.1-15.1); White Blood Count 5.94 10^3/uL (3.29-11.43)
[2024-04-07 06:01] LABS: Alanine Aminotransferase 11 U/L (0-33); Albumin Level 3.5 g/dL (3.5-5.2); Alkaline Phosphatase 58 U/L (35-105); Anion Gap 13.2 (5-19); Aspartate Amino Transferase 15 U/L (0-32); Blood Urea Nitrogen 47 mg/dL (8-23); Calcium 10.1 mg/dL (8.5-10.5); Carbon Dioxide 27 mmol/L (22-29); Chloride 109 mmol/L (98-107); Creatinine Clr Calc Pharmacy 13.0922; Glucose 86 mg/dL (65-115); Magnesium 1.8 mg/dL (1.7-2.3); Osmolality Calculated 310 mOsm/kg (285-295); Phosphorus 3.2 mg/dL (2.5-4.5); Potassium 5.2 mmol/L (3.5-5.1); Sodium 144 mmol/L (136-145); Total Bilirubin 0.4 mg/dL (0.15-1.2); Total Protein 5.5 g/dL (6.6-8.7)
[2024-04-07 06:50] LABS: Basophils # 0.1 10^3/uL (0.0-0.1); Basophils % 0.7 %; Eosinophils # 0.3 10^3/uL (0.0-0.8); Lymphocytes # 0.3 10^3/uL (0.8-4.8); Lymphocytes % 4.4 %; Mean Corpuscular Hemoglobin 29.5 pg (27-33); Mean Corpuscular Volume 98.5 fl (85-98); Mean Platelet Volume 11.2 fL (7.4-10.4); Monocytes # 0.4 10^3/uL (0.2-0.9); Neutrophils # 5.68 10^3/uL (1.8-7.7); Neutrophils % 83.5 %; Nucleated Red Blood Cells % 0 %; Platelet Count 119 10^3/cmm (157-399); Red Blood Count 2.64 10^6/uL (3.85-5.65); Red Cell Distribution Width 15.9 % (12.1-15.1); White Blood Count 6.81 10^3/uL (3.29-11.43)
[2024-04-07] MEDS: HYDROcodone-acetaminophen 10-325 mg Tablet 1 TAB PO ×3 (08:53→21:32)
[2024-04-07] MEDS: amlodipine 10 mg Tablet PO (08:54)
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
[2024-04-07 11:54] LABS: KAPPA LIGHT CHAIN, FREE, SERUM 81.3 mg/L (3.3-19.4); KAPPA/LAMBDA LIGHT CHAINS FREE 1.23 (0.26-1.65); LAMBDA LIGHT CHAIN, FREE, SERU 65.9 mg/L (5.7-26.3)
--- NOTE | 2024-04-07 11:55 | PC.SOCIAL ---
IMM updated IMM dated and initialed, copy placed in chart and given to patient
[2024-04-07] MEDS: sucralfate 1 gm/10 mL Oral Liq UDC PO ×3 (12:12→20:02)
[2024-04-07] MEDS: EPOETIN ALFA-EPBX 10,000 UNIT/ML SDV (ESRD) 10000 UNIT SUBCUT (12:12)
--- NOTE | 2024-04-07 14:17 | PM.PN ---
Subjective Subjective: Patient seen this morning. She has done well overnight, no chest pain. Blood pressure has been in the 140-150 systolic range. She was seen by nephrology this morning, plans to refer to nephrology at discharge. No new symptoms or concerns. Vitals/I&O/Wt Last Vital Signs Temp 98.3 F 04/07/24 11:59 Pulse 73 04/07/24 11:59 Resp 17 04/07/24 11:59 BP 150/57 04/07/24 11:59 Pulse Ox 91 04/07/24 11:59 O2 Del Method Nasal Cannula 04/07/24 11:59 O2 Flow Rate 3 04/07/24 08:00 04/06/24 04/07/24 04/07/24 22:59 06:59 14:59 Intake Total 630 / 2410 50 / 2410 240 / 240 Output Total 600 / 600 Balance 30 / 1810 50 / 1810 240 / 240 Weight last 48 hrs Weight 102 lb 4 oz Weight 100 lb 8 oz Weight 100 lb 8 oz Physical Exam Const: COMMON NORMALS: no acute distress and patient oriented x3 GENERAL APPEARANCE: cooperative and comfortable ORIENTATION/CONSCIOUSNESS: Yes awake, Yes oriented to person, Yes oriented to place and Yes oriented to time Chest: COMMONS NORMALS: normal inspection of the chest and normal palpation of entire chest wall CHEST: Yes Symmetrical chest wall rise Resp: COMMON NORMALS: normal respiratory effort, No retractions and No use of accessory muscles EFFORT & INSPECTION: Yes symmetric chest movement AUSCULTATION: crackles Laterality: bilateral and posterior Cardio: COMMON NORMALS: regular rate, regular rhythm, S1 normal heart sound present, S2 normal heart sound present, No gallops present (Cardio), No clicks present (Cardio), No murmurs present (Cardio) and No rub (Cardio) RATE: regular rate RHYTHM: regular rhythm HEART SOUNDS: S1 normal heart sound present and S2 normal heart sound present PERIPHERAL PULSES: radial pulses present Extremity: COMMON NORMALS: no pedal edema Neuro: COMMON NORMALS: patient oriented x3 and moves all extremities SENSORIUM/ORIENTATION: Yes oriented to person, Yes oriented to place and Yes oriented to time Data 04/07/24 15:12 04/07/24 05:01 Micro: Microbiology 04/05/24 13:31 Blood Culture - Preliminary Blood NEGATIVE TO DATE 04/05/24 13:26 Blood Culture - Preliminary Blood NEGATIVE TO DATE 04/06/24 09:55 Occult Blood (FIT) - Final Stool A&P Assessment and plan (1) Abnormal EKG: She remains asymptomatic from a cardiovascular standpoint. No further cardiac testing indicated. (2) Diastolic heart failure: Qualifiers: Heart failure chronicity: chronic Qualified Code(s): I50.32 - Chronic diastolic (congestive) heart failure (3) Hypertension: Blood pressure slightly elevated, could be related to volume, her cumulative balance is 3 L positive. Continue amlodipine 10 mg daily, metoprolol tartrate 25 mg twice a day. Qualifiers: Hypertension type: resistant hypertension Qualified Code(s): I1A.0 - Resistant hypertension Attestations Medical Necessity Statement*: Per hospitalist team Coding Level of Care Code Acute Code for [facility] Fw Diagnoses Abnormal EKG R94.31 Chronic diastolic heart failure I50.32 Heart failure chronicity: chronic Resistant hypertension I1A.0 Hypertension type: resistant hypertension
[2024-04-07 15:33] LABS: Basophils # 0.1 10^3/uL (0.0-0.1); Basophils % 0.6 %; Eosinophils # 0.3 10^3/uL (0.0-0.8); Eosinophils % 3.9 %; Hematocrit 28.8 % (36-47); Lymphocytes # 0.3 10^3/uL (0.8-4.8); Lymphocytes % 3.6 %; Mean Corpuscular HGB Conc 29.2 g/dL (30-55); Mean Corpuscular Hemoglobin 29.5 pg (27-33); Mean Corpuscular Volume 101.1 fl (85-98); Mean Platelet Volume 11.4 fL (7.4-10.4); Monocytes # 0.4 10^3/uL (0.2-0.9); Monocytes % 4.8 %; Neutrophils # 7.03 10^3/uL (1.8-7.7); Neutrophils % 86.6 %; Nucleated Red Blood Cells % 0 %; Platelet Count 134 10^3/cmm (157-399); Red Blood Count 2.85 10^6/uL (3.85-5.65); Red Cell Distribution Width 15.9 % (12.1-15.1); White Blood Count 8.12 10^3/uL (3.29-11.43)
[2024-04-07 15:44] LABS: Anti-Nuclear Antibody Screen NEGATIVE (NEGATIVE)
[2024-04-07] MEDS: metoprolol tartrate 25 mg Tablet PO (17:40)
[2024-04-07 22:19] LABS: ALBUMIN 3.7 g/dL (3.8-4.8); ALPHA 1 GLOBULIN 0.5 g/dL (0.2-0.3); ALPHA 2 GLOBULIN 0.6 g/dL (0.5-0.9); BETA 1 GLOBULIN 0.3 g/dL (0.4-0.6); BETA 2 GLOBULIN 0.3 g/dL (0.2-0.5); GAMMA GLOBULIN 0.8 g/dL (0.8-1.7)
[2024-04-07 23:04] LABS: Basophils % 0.6 %; Eosinophils # 0.3 10^3/uL (0.0-0.8); Eosinophils % 4.4 %; Hematocrit 30.9 % (36-47); Lymphocytes # 0.3 10^3/uL (0.8-4.8); Lymphocytes % 4.5 %; Mean Corpuscular HGB Conc 29.8 g/dL (30-55); Mean Corpuscular Hemoglobin 29.7 pg (27-33); Mean Corpuscular Volume 99.7 fl (85-98); Mean Platelet Volume 10.7 fL (7.4-10.4); Monocytes # 0.4 10^3/uL (0.2-0.9); Monocytes % 6.1 %; Neutrophils # 5.76 10^3/uL (1.8-7.7); Neutrophils % 83.8 %; Nucleated Red Blood Cells % 0 %; Platelet Count 116 10^3/cmm (157-399); Red Cell Distribution Width 16.3 % (12.1-15.1); White Blood Count 6.87 10^3/uL (3.29-11.43)
[2024-04-08] VITALS (7 sets, daily range): BP systolic 129–179; BP diastolic 49–64; PULSE 56–83; RESP 15–17; TEMP 36.4–37; O2SAT 92–96
[2024-04-08] MEDS: piperacillin-tazobactam 3.375 GM in sodium chloride 0.9% (plus) 50 ML IV ×2 (01:30→13:18)
[2024-04-08] MEDS: pantoprazole 40 mg SDV IVP ×2 (01:31→13:19)
[2024-04-08 03:44] LABS: Basophils # 0.1 10^3/uL (0.0-0.1); Basophils % 0.8 %; Eosinophils # 0.3 10^3/uL (0.0-0.8); Eosinophils % 4.8 %; Hematocrit 32.9 % (36-47); Lymphocytes # 0.4 10^3/uL (0.8-4.8); Mean Corpuscular HGB Conc 28.6 g/dL (30-55); Mean Corpuscular Hemoglobin 29.2 pg (27-33); Mean Corpuscular Volume 102.2 fl (85-98); Mean Platelet Volume 11.8 fL (7.4-10.4); Monocytes # 0.5 10^3/uL (0.2-0.9); Monocytes % 7.6 %; Neutrophils # 5.16 10^3/uL (1.8-7.7); Nucleated Red Blood Cells % 0 %; Platelet Count 118 10^3/cmm (157-399); Red Blood Count 3.22 10^6/uL (3.85-5.65); Red Cell Distribution Width 16.6 % (12.1-15.1); White Blood Count 6.45 10^3/uL (3.29-11.43)
[2024-04-08 03:58] LABS: Alanine Aminotransferase 11 U/L (0-33); Albumin Level 3.6 g/dL (3.5-5.2); Alkaline Phosphatase 64 U/L (35-105); Anion Gap 12.4 (5-19); Aspartate Amino Transferase 14 U/L (0-32); Blood Urea Nitrogen 39 mg/dL (8-23); Calcium 10.2 mg/dL (8.5-10.5); Carbon Dioxide 27 mmol/L (22-29); Chloride 113 mmol/L (98-107); Creatinine Clr Calc Pharmacy 13.1783; Globulin 2.2 g/dL (1.3-4.6); Glucose 81 mg/dL (65-115); Magnesium 1.8 mg/dL (1.7-2.3); Osmolality Calculated 312 mOsm/kg (285-295); Phosphorus 3.6 mg/dL (2.5-4.5); Potassium 5.4 mmol/L (3.5-5.1); Sodium 147 mmol/L (136-145); Total Bilirubin 0.6 mg/dL (0.15-1.2); Total Protein 5.8 g/dL (6.6-8.7)
[2024-04-08] MEDS: sucralfate 1 gm/10 mL Oral Liq UDC PO ×2 (06:00→10:32)
[2024-04-08] MEDS: amlodipine 10 mg Tablet PO (08:22)
[2024-04-08] MEDS: metoprolol tartrate 25 mg Tablet PO (08:22)
[2024-04-08] MEDS: dextrose 5% 1,000 ML 75 ML IV (10:32)
[2024-04-08] MEDS: HYDROcodone-acetaminophen 10-325 mg Tablet 1 TAB PO (10:42)
[2024-04-08 12:25] LABS: ANCA Screen NEGATIVE (NEGATIVE)
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
[2024-04-08] MEDS: sodium polystyrene sulfonate 15 gm/60 mL Btl PO (13:19)
--- NOTE | 2024-04-08 14:22 | PC.NURSE ---
Patient provided with discharge packet with on and daughter in law at bedside who is patients primary director of community education. Medications reviewed, appointments reviewed, follow up blood work prescription and directions provided. Patient and family had no questions. IV access removed with no complications, catheter intact. Patient and director of community education educated on S/S to seek medical care. Patient brought to personal vehicle via wheelchair.
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
[2024-04-08 17:30] LABS: Glomerular Bsmt Membrane IGG <1.0 AI
[2024-04-10 12:29] LABS: Immunofixation Serum Normal pattern.
== END 2024-04-08 14:13 | disposition home health service (06) | DRG 378 ==
LOC: ER 12:13 → MEDSURG 12:47
PROVIDERS: Internal Medicine Nephrology; Surgery; Admitting Provider Internal Medicine; Emergency Provider Family Medicine; PCP Family Medicine; Visit Provider Internal Medicine
PROC: 0DJ08ZZ Inspection of Upper Intestinal Tract, Via Natural or Artificial Opening Endoscopic (ICD-10-PCS; principal; 2024-04-06 11:15)
DX: K29.71 Gastritis, unspecified, with bleeding (principal); A04.72 Enterocolitis due to Clostridium difficile, not specified as recurrent; D62 Acute posthemorrhagic anemia; I13.0 Hypertensive heart and chronic kidney disease with heart failure and stage 1 through stage 4 chronic kidney disease, or unspecified chronic kidney disease; I50.32 Chronic diastolic (congestive) heart failure; N18.4 Chronic kidney disease, stage 4 (severe); R94.31 Abnormal electrocardiogram [ECG] [EKG]; I1A.0 Resistant hypertension; J43.1 Panlobular emphysema; I27.20 Pulmonary hypertension, unspecified; G47.33 Obstructive sleep apnea (adult) (pediatric); M54.41 Lumbago with sciatica, right side; G89.29 Other chronic pain; K64.9 Unspecified hemorrhoids; K83.8 Other specified diseases of biliary tract; Z90.49 Acquired absence of other specified parts of digestive tract; E87.5 Hyperkalemia; Z79.891 Long term (current) use of opiate analgesic; Z99.81 Dependence on supplemental oxygen; F41.9 Anxiety disorder, unspecified; Z90.710 Acquired absence of both cervix and uterus; K44.9 Diaphragmatic hernia without obstruction or gangrene; K52.9 Noninfective gastroenteritis and colitis, unspecified; D63.1 Anemia in chronic kidney disease; Z87.891 Personal history of nicotine dependence
CPT/HCPCS: 36415; 36430; 43239; 74176; 80053; 80503; 81001; 82274; 82306; 82310; 82436; 82728; 83010; 83520; 83540; 83550; 83615; 83735; 83883; 83970; 84100; 84133; 84145; 84155; 84165; 84300; 84484; 84550; 85025; 85045; 85610; 85730; 86036; 86038; 86160; 86225; 86334; 86705; 86706; 86803; 86850; 86900; 86920; 87040; 87045; 87177; 87209; 87340; 87427; 87449; 87493; 88305; 88342; 93005; 93306; 93975; 94640; 96365; 96367; 96372; 96375; 99285; J0744; J2470; J2543; J2704; J3475; J3490; J7030; J7040; J7070; J7613; P9016; Q3014; Q5105

== ENCOUNTER → 2024-04-18 09:47 | Outpatient (BNVA) | payer MEDICARE, OTHER, SELFPAY | PROVIDERS: PCP Family Medicine; Visit Provider Surgery | DX: A04.8 Other specified bacterial intestinal infections (principal) | CPT/HCPCS: 99212 ==

== ENCOUNTER → 2024-04-26 08:25 | Outpatient (BNVA) | payer MEDICARE, OTHER, SELFPAY | PROVIDERS: PCP Family Medicine; Visit Provider Dermatology | DX: L82.1 Other seborrheic keratosis (principal); D18.01 Hemangioma of skin and subcutaneous tissue; C44.519 Basal cell carcinoma of skin of other part of trunk; D48.5 Neoplasm of uncertain behavior of skin; L57.0 Actinic keratosis | CPT/HCPCS: 11102; 17000; 17262; 17263; 99213 ==

== ENCOUNTER 2024-05-02 15:47 | Inpatient (IN) | payer MEDICARE, OTHER, SELFPAY ==
[2024-05-02] VITALS (52 sets, daily range): BP systolic 127–163; BP diastolic 57–99; PULSE 61–98; RESP 7–34; TEMP 36.9; O2SAT 80–98; BMI 17.4
--- NOTE | 2024-05-02 15:49 | XRR_ITS ---
PROCEDURE INFORMATION: Exam: XR Chest Exam date and time: 05/02/2024 4:02 PM Age: 78 years old Clinical indication: Cough and shortness of breath; Additional info: SOB TECHNIQUE: Imaging protocol: Radiologic exam of the chest. Views: 1 view. COMPARISON: CR XR chest 1V portable [id number] 02/20/2024 4:29 AM FINDINGS: Lungs: No consolidation. Pleural spaces: Bilateral small volume pleural effusions. No pneumothorax. Heart/Mediastinum: Unremarkable. No cardiomegaly. Bones/joints: Unremarkable. XR/XR chest 1V portable [id number] IMPRESSION: Bilateral small volume pleural effusions.
--- NOTE | 2024-05-02 17:24 | W.ED.URI ---
Documented by User: Keanu Cadet DO 05/03/24 05:49 HPI - URI/Sore Throat General: Chief Complaint: ER Hold Stated Complaint: cough, weakness, back pain Time Seen by Provider: 05/02/24 17:23 History of Present Illness: 78-year-old female presents emergency room for a history of cough congestion headache myalgias fevers been going on for about the last 3 days she is normally on 3 L by nasal cannula, she is not requiring 4 L/min maintaining her sats. She last used albuterol treatment last evening. Nausea without vomiting or diarrhea no hemoptysis Associated symptoms: Reports chills and fever(s); Deny abdominal pain or chest pain Related Data Home Medications ?Medication ?Instructions ?Recorded ?Confirmed aspirin 81 mg tablet,delayed 81 mg PO DAILY 11/06/22 04/18/24 release Held on 04/08/24. Instructions: hold till seen pcp hydrocodone 10 mg-acetaminophen 1 tab PO Q6H PRN Pain 11/06/22 04/18/24 325 mg tablet ferrous sulfate 325 mg (65 mg 325 mg PO DAILY 04/05/24 04/18/24 iron) tablet (FeroSul) fluticasone propionate 115 2 puff inhalation BID 04/05/24 04/18/24 mcg-salmeterol 21 mcg/actuation HFA inhaler (Advair HFA) gabapentin 300 mg capsule 300 mg PO QPM 04/05/24 04/18/24 ropinirole 0.5 mg tablet 0.5 mg PO QPM 04/05/24 04/18/24 Previous Rx's ?Medication ?Instructions ?Recorded Oxygen NC 2-3 L/min #1 ea 11/12/22 oxygen at 2/L min #1 ea 12/09/22 metoprolol tartrate 25 mg tablet 25 mg PO BID 30 days #180 tabs 03/30/23 GELY KNEE BRACE #1 ea 05/17/23 Wheel Chair #1 ea 05/21/23 Hinged Knee Brace #1 ea 07/20/23 amlodipine 10 mg tablet 10 mg PO DAILY high blood pressure 12/09/23 #90 tabs furosemide 20 mg tablet (Lasix) 20 mg PO BID #60 tabs 04/03/24 ciprofloxacin HCl 500 mg tablet 500 mg PO BID #8 tabs 04/08/24 (Cipro) sucralfate 1 gram tablet 1 g PO BID #60 tabs 04/08/24 amoxicillin 500 mg capsule 1,000 mg (2 x 500 mg) PO BID 14 04/18/24 days #56 caps clarithromycin 500 mg tablet 500 mg PO BID 14 days #28 tabs 04/18/24 pantoprazole 40 mg tablet,delayed 40 mg PO BID 2 weeks #28 tabs 04/18/24 release (Protonix) dexamethasone 6 mg tablet 6 mg PO DAILY 5 days #5 tabs 05/02/24 doxycycline hyclate 100 mg capsule 100 mg PO BID 7 days #14 caps 05/02/24 Allergies Allergy/AdvReac Type Severity Reaction Status Date / Time No Known Allergies Allergy Verified 05/02/24 15:58 Review of Systems Const: Reports: fever(s), chills and fatigue Card: Denies: chest pain Resp: Reports: dyspnea GI: Denies: abdominal pain : Denies: dysuria, urinary frequency or urinary urgency Musc: Denies: neck pain or back pain Skin/Breast: Denies: rash PFSH ED PFSH: Medical History Asymptomatic bradycardia C. difficile diarrhea Bilateral shoulder pain CKD (chronic kidney disease) stage 3, GFR 30-59 ml/min Chronic low back pain with right-sided sciatica [facility], Dr. Falcon Hypertension COPD (chronic obstructive pulmonary disease) Asthma Anxiety Oxygen dependent Surgical History History of hip surgery History of ankle surgery History of back surgery Hx of hysterectomy Family History Father No problems noted. Mother Stroke Social History Smoking and tobacco/nicotine status: former use of tobacco/nicotine Quit status (tobacco/nicotine): has quit using Year quit tobacco: 2021 Former quit date comment: 1ppd X 60 years Second hand smoke exposure: No Alcohol intake: former Substance/Drug Use: never Physical Exam Const: GENERAL APPEARANCE: cooperative ORIENTATION/CONSCIOUSNESS: Yes awake, Yes oriented to person, Yes oriented to place and Yes oriented to time HENMT: COMMON NORMALS: normocephalic, atraumatic and hearing grossly normal bilaterally HEAD & SCALP: normocephalic and atraumatic Resp: AUSCULTATION: rhonchi and wheezes Cardio: COMMON NORMALS: regular rate, regular rhythm and No murmurs present (Cardio) RATE: regular rate RHYTHM: regular rhythm GI: COMMON NORMALS: Soft to palpation and No hepatosplenomegaly present AUSCULTATION: Yes normoactive bowel sounds PALPATION: Yes Soft to palpation, No Tenderness to palpation present (GI), No Guarding due to palpation present (GI) and Yes No hepatosplenomegaly present Extremity: COMMON NORMALS: normal to inspection, capillary refill normal, no clubbing, cyanosis or edema, no calf tenderness and no pedal edema Neuro: SENSORIUM/ORIENTATION: Yes oriented to person, Yes oriented to place and Yes oriented to time Skin: COMMON NORMALS: no rashes or lesions noted GENERAL SKIN EXAM: no rashes or lesions noted Course Vital Signs: Vital signs: Vital Signs Temperature 98.5 F 05/02/24 15:54 Pulse Rate 74 05/03/24 04:00 Respiratory Rate 17 05/03/24 04:00 Blood Pressure 123/51 05/03/24 04:00 Pulse Oximetry 94 05/03/24 04:00 Oxygen Delivery Me thod Nasal Cannula 05/03/24 04:00 Oxygen Flow Rate 6 05/03/24 04:00 Fraction of Inspir ed Oxygen 50 05/02/24 20:36 MDM - URI/Sore Throat Medical Decision Making Care signed out to Dr. Light at change of shift. See final notes for diagnosis and disposition. Patient care transitioned me at shift change. COPD exacerbation. ABG was pending. Breathing treatments pending. ABG shows acute hypercapnic respiratory failure. She is being placed on BiPAP. Has chronic renal insufficiency. She has received dexamethasone and breathing treatment. Consultation: I spoke with Dr. Alex who agrees to admission and observation. Assessment and plan: COPD with acute exacerbation Hypercapnic respiratory failure -I discussed the patient with the hospitalist on-call who is admitting the patient. - Discussed findings and plan with patient. Answered any questions. - All laboratory values were reviewed and interpreted personally by myself, the ER physician - All imaging was reviewed and interpreted personally by myself, the ER physician. - Evaluation and treatment of this problem were appropriate in the emergency setting Lab Data 05/03/24 03:17 05/03/24 03:17 Radiology Impressions Chest X-Ray 05/02/24 15:49 IMPRESSION: Bilateral small volume pleural effusions. Laboratory Results WBC 5.68 10^3/uL (3.29-11.43) 05/02/24 17:28 RBC 3.20 10^6/uL (3.85-5.65) L 05/02/24 17: Hgb 9.40 g/dL (11.27-16.99) L 05/02/24 17:28 Hct 32.2 % (36-47) L 05/02/24 17: MCV 100.6 fl (85-98) H 05/02/24 17: MCH 29.4 pg (27-33) 05/02/24 17: MCHC 29.2 g/dL (30-55) L 05/02/24 17: RDW 16.5 % (12.1-15.1) H 05/02/24 17: Plt Count 112 10^3/cmm (157-399) L 05/02/24 17: MPV 11.7 fL (7.4-10.4) H 05/02/24 17: Neut % (Auto) 85.0 % 05/02/24 17: Lymph % (Auto) 3.7 % 05/02/24 17: Cobb % (Auto) 8.6 % 05/02/24: Eos % (Auto) 1.1 % 05/02/24: Baso % (Auto) 0.7 % 05/02/24: Neut # (Auto) 4.83 10^3/uL (1.8-7.7) 05/02/24 17: Lymph # (Auto) 0.2 10^3/uL (0.8-4.8) L 05/02/24 17: [place] # (Auto) 0.5 10^3/uL (0.2-0.9) 05/02/24 17: Eos # (Auto) 0.1 10^3/uL (0.0-0.8) 05/02/24 17: Baso # (Auto) 0.0 10^3/uL (0.0-0.1) 05/02/24 17:28 Nucleated RBC % (auto) 0 % 05/02/24 17:28 Nucleated RBCs # 0.0 /100WBC 05/02/24 17:28 Specimen Type Arterial 05/02/24 18:39 Sample Site Radial, left 05/02/24 18:39 ABG pH 7.26 (7.35-7.45) L 05/02/24 18:39 ABG pCO2 58.1 mmHg (35-45) H 05/02/24 18:39 ABG pO2 52.9 mmHg (80.0-100.0) L 05/02/24 18:39 ABG PO2/FiO2 Ratio 165 05/02/24 18:39 ABG HCO3 26.1 mmol/L (22-26) H 05/02/24 18:39 ABG O2 Saturation 88.0 05/02/24 18:39 ABG Base Excess -1.4 mmol/L (-2.0-2.0) 05/02/24 18:39 Sukumar Test Pos 05/02/24 18:39 A-a O2 Gradient 13.6 mmHg (5-10) H 05/02/24 18:39 Hematocrit 28.5 % (37-47) L 05/02/24 18:39 Hgb O2 Saturation 86.3 % (95-100) L 05/02/24 18:39 Carboxyhemoglobin 1.5 %THgb (0.4-20.1) 05/02/24 18:39 Methemoglobin 0.3 % (0.4-1.5) L 05/02/24 18:39 Total Hemoglobin 9.3 g/dL (12-16) L 05/02/24 18:39 Sodium 144.0 mmol/L (131-143) H 05/02/24 18:39 Potassium 4.1 mmol/L (3.5-5.0) 05/02/24 18:39 Glucose 99.0 mg/dL (70-115) 05/02/24 18:39 Ionized Calcium 1.3 mmol/L (1.1-1.4) 05/02/24 18:39 O2 Delivery Device Nc 05/02/24 18:39 O2 Liters/Min 3.0 % 05/02/24 18:39 FiO2 32.0 % 05/02/24 18:39 Elementary Education Teacher ID glc 05/02/24 18:39 Sodium 145 mmol/L (136-145) 05/02/24 17:28 Potassium 4.6 mmol/L (3.5-5.1) 05/02/24 17:28 Chloride 107 mmol/L (98-107) 05/02/24 17:28 Carbon Dioxide 26 mmol/L (22-29) 05/02/24 17:28 Anion Gap 16.6 (5-19) 05/02/24 17:28 BUN 39 mg/dL (8-23) H 05/02/24 17:28 Creatinine 3.2 mg/dL (0.5-0.9) H 05/02/24 17:28 GFR Calculation Not Reportable 05/02/24 17: Glucose 106 mg/dL (65-115) 05/02/24 17: Calculated Osmolality 310 mOsm/kg (285-295) H 05/02/24 17:28 Calcium 9.6 mg/dL (8.5-10.5) 05/02/24 17:28 Total Bilirubin 0.3 mg/dL (0.15-1.2) 05/02/24 17:28 AST 13 U/L (0-32) 05/02/24 17:28 ALT 13 U/L (0-33) 05/02/24 17:28 Alkaline Phosphatase 62 U/L (35-105) 05/02/24 17:28 Total Protein 6.6 g/dL (6.6-8.7) 05/02/24 17: Albumin 4.1 g/dL (3.5-5.2) 05/02/24 17:28 Globulin 2.5 g/dL (1.3-4.6) 05/02/24 17:28 Procalcitonin 0.38 ng/mL (0-0.5) 05/02/24 17:28 Urine Color Yellow (Yellow) 05/02/24 19:03 Urine Appearance Clear (CLEAR) 05/02/24 19:03 Urine pH 5.5 (5-7) 05/02/24 19: Ur Specific [place] 1.011 (1.005-1.030) 05/02/24 19:03 Urine Protein 2+ (Negative) A 05/02/24 19: Urine Glucose (UA) Negative (Normal) 05/02/24 19:03 Urine Ketones Negative (Negative) 05/02/24 19:03 Urine Blood Negative (Negative) 05/02/24 19:03 Urine Nitrate Negative (Negative) 05/02/24 19:03 Urine Bilirubin Negative (Negative) 05/02/24 19:03 Urine Urobilinogen 0.2 mg/dL (Negative) 05/02/24 19:03 Ur Leukocyte Esterase Negative (Negative) 05/02/24 19:03 Urine RBC 0-2 /hpf (0-2) 05/02/24 19:03 Urine WBC 0-5 /hpf (0-5) 05/02/24 19:03 Ur Squamous Epith Cells 0-5 /hpf (0-5) 05/02/24 19:03 Amorphous Sediment Not Reportable 05/02/24 19:03 Urine Bacteria None seen /hpf (NONE) 05/02/24 19:03 Hyaline Casts 2.05 /lpf 05/02/24 19:03 Coronavirus (PCR) Negative (Negative) 05/02/24 16:15 Influenza A (PCR) Negative (Negative) 05/02/24 16:15 Influenza Type B (PCR) Negative (Negative) 05/02/24 16:15 RSV (PCR) Negative (Negative) 05/02/24 16:15 Discharge Plan Discharge Patient Disposition: Placed in Observation Admit Provider: Travis Alex Clinical Impression: Hypercapnic respiratory failure, COPD with acute exacerbation, Chronic hypoxemic respiratory failure Discharge Diet: Usual diet Discharge Activity: Increase activity as tolerated Coding Level of Care Code ED Lap Polisher for Chg Fwd Documented by User: Alicia Light MD 05/02/24 19:20 HPI - URI/Sore Throat General: Chief Complaint: ER Hold Stated Complaint: cough, weakness, back pain Time Seen by Provider: 05/02/24 17:23 Related Data Home Medications ?Medication ?Instructions ?Recorded ?Confirmed aspirin 81 mg tablet,delayed 81 mg PO DAILY 11/06/22 04/18/24 release Held on 04/08/24. Instructions: hold till seen pcp hydrocodone 10 mg-acetaminophen 1 tab PO Q6H PRN Pain 11/06/22 04/18/24 325 mg tablet ferrous sulfate 325 mg (65 mg 325 mg PO DAILY 04/05/24 04/18/24 iron) tablet (FeroSul) fluticasone propionate 115 2 puff inhalation BID 04/05/24 04/18/24 mcg-salmeterol 21 mcg/actuation HFA inhaler (Advair HFA) gabapentin 300 mg capsule 300 mg PO QPM 04/05/24 04/18/24 ropinirole 0.5 mg tablet 0.5 mg PO QPM 04/05/24 04/18/24 Previous Rx's ?Medication ?Instructions ?Recorded Oxygen NC 2-3 L/min #1 ea 11/12/22 oxygen at 2/L min #1 ea 12/09/22 metoprolol tartrate 25 mg tablet 25 mg PO BID 30 days #180 tabs 03/30/23 GELY KNEE BRACE #1 ea 05/17/23 Wheel Chair #1 ea 05/21/23 Hinged Knee Brace #1 ea 07/20/23 amlodipine 10 mg tablet 10 mg PO DAILY high blood pressure 12/09/23 #90 tabs furosemide 20 mg tablet (Lasix) 20 mg PO BID #60 tabs 04/03/24 ciprofloxacin HCl 500 mg tablet 500 mg PO BID #8 tabs 04/08/24 (Cipro) sucralfate 1 gram tablet 1 g PO BID #60 tabs 04/08/24 amoxicillin 500 mg capsule 1,000 mg (2 x 500 mg) PO BID 14 04/18/24 days #56 caps clarithromycin 500 mg tablet 500 mg PO BID 14 days #28 tabs 04/18/24 pantoprazole 40 mg tablet,delayed 40 mg PO BID 2 weeks #28 tabs 04/18/24 release (Protonix) dexamethasone 6 mg tablet 6 mg PO DAILY 5 days #5 tabs 05/02/24 doxycycline hyclate 100 mg capsule 100 mg PO BID 7 days #14 caps 05/02/24 Allergies Allergy/AdvReac Type Severity Reaction Status Date / Time No Known Allergies Allergy Verified 05/02/24 15:58 [facility] ED PFS: Medical History Asymptomatic bradycardia C. difficile diarrhea Bilateral shoulder pain CKD (chronic kidney disease) stage 3, GFR 30-59 ml/min Chronic low back pain with right-sided sciatica [facility], Dr. Falcon Hypertension COPD (chronic obstructive pulmonary disease) Asthma Anxiety Oxygen dependent Surgical History History of hip surgery History of ankle surgery History of back surgery Hx of hysterectomy Family History Father No problems noted. Mother Stroke Social History Smoking and tobacco/nicotine status: former use of tobacco/nicotine Quit status (tobacco/nicotine): has quit using Year quit tobacco: 2021 Former quit date comment: 1ppd X 60 years Second hand smoke exposure: No Alcohol intake: former Substance/Drug Use: never Course Vital Signs: Vital signs: Vital Signs Temperature 98.5 F 05/02/24 15:54 Pulse Rate 74 05/03/24 04:00 Respiratory Rate 17 05/03/24 04:00 Blood Pressure 123/51 05/03/24 04:00 Pulse Oximetry 94 05/03/24 04:00 Oxygen Delivery Me thod Nasal Cannula 05/03/24 04:00 Oxygen Flow Rate 6 05/03/24 04:00 Fraction of Inspir ed Oxygen 50 05/02/24 20:36 MDM - URI/Sore Throat Medical Decision Making Patient care transitioned me at shift change. COPD exacerbation. ABG was pending. Breathing treatments pending. ABG shows acute hypercapnic respiratory failure. She is being placed on BiPAP. Has chronic renal insufficiency. She has received dexamethasone and breathing treatment. Consultation: I spoke with Dr. Alex who agrees to admission and observation. Assessment and plan: COPD with acute exacerbation Hypercapnic respiratory failure -I discussed the patient with the hospitalist on-call who is admitting the patient. - Discussed findings and plan with patient. Answered any questions. - All laboratory values were reviewed and interpreted personally by myself, the ER physician - All imaging was reviewed and interpreted personally by myself, the ER physician. - Evaluation and treatment of this problem were appropriate in the emergency setting Lab Data 05/03/24 03:17 05/03/24 03:17 Radiology Impressions Chest X-Ray 05/02/24 15:49 IMPRESSION: Bilateral small volume pleural effusions. Laboratory Results WBC 5.68 10^3/uL (3.29-11.43) 05/02/24 17: RBC 3.20 10^6/uL (3.85-5.65) L 05/02/24 17: Hgb 9.40 g/dL (11.27-16.99) L 05/02/24 17: Hct 32.2 % (36-47) L 05/02/24 17: MCV 100.6 fl (85-98) H 05/02/24 17: MCH 29.4 pg (27-33) 05/02/24 17: MCHC 29.2 g/dL (30-55) L 05/02/24 17: RDW 16.5 % (12.1-15.1) H 05/02/24 17: Plt Count 112 10^3/cmm (157-399) L 05/02/24 17: MPV 11.7 fL (7.4-10.4) H 05/02/24 17: Neut % (Auto) 85.0 % 05/02/24 17: Lymph % (Auto) 3.7 % 05/02/24: Cobb % (Auto) 8.6 % 05/02/24 17: Eos % (Auto) 1.1 % 05/02/24: Baso % (Auto) 0.7 % 05/02/24: Neut # (Auto) 4.83 10^3/uL (1.8-7.7) 05/02/24 17: Lymph # (Auto) 0.2 10^3/uL (0.8-4.8) L 05/02/24: Cobb # (Auto) 0.5 10^3/uL (0.2-0.9) 05/02/24 17: Eos # (Auto) 0.1 10^3/uL (0.0-0.8) 05/02/24 17: Baso # (Auto) 0.0 10^3/uL (0.0-0.1) 05/02/24: Nucleated RBC % (auto) 0 % 05/02/24 17:28 Nucleated RBCs # 0.0 /100WBC 05/02/24 17:28 Specimen Type Arterial 05/02/24 18:39 Sample Site Radial, left 05/02/24 18:39 ABG pH 7.26 (7.35-7.45) L 05/02/24 18:39 ABG pCO2 58.1 mmHg (35-45) H 05/02/24 18:39 ABG pO2 52.9 mmHg (80.0-100.0) L 05/02/24 18:39 ABG PO2/FiO2 Ratio 165 05/02/24 18:39 ABG HCO3 26.1 mmol/L (22-26) H 05/02/24 18:39 ABG O2 Saturation 88.0 05/02/24 18:39 ABG Base Excess -1.4 mmol/L (-2.0-2.0) 05/02/24 18:39 Sukumar Test Pos 05/02/24 18:39 A-a O2 Gradient 13.6 mmHg (5-10) H 05/02/24 18:39 Hematocrit 28.5 % (37-47) L 05/02/24 18:39 Hgb O2 Saturation 86.3 % (95-100) L 05/02/24 18:39 Carboxyhemoglobin 1.5 %THgb (0.4-20.1) 05/02/24 18:39 Methemoglobin 0.3 % (0.4-1.5) L 05/02/24 18:39 Total Hemoglobin 9.3 g/dL (12-16) L 05/02/24 18:39 Sodium 144.0 mmol/L (131-143) H 05/02/24 18:39 Potassium 4.1 mmol/L (3.5-5.0) 05/02/24 18:39 Glucose 99.0 mg/dL (70-115) 05/02/24 18:39 Ionized Calcium 1.3 mmol/L (1.1-1.4) 05/02/24 18:39 O2 Delivery Device Nc 05/02/24 18:39 O2 Liters/Min 3.0 % 05/02/24 18:39 FiO2 32.0 % 05/02/24 18:39 Elementary Education Teacher ID glc 05/02/24 18:39 Sodium 145 mmol/L (136-145) 05/02/24 17:28 Potassium 4.6 mmol/L (3.5-5.1) 05/02/24 17:28 Chloride 107 mmol/L (98-107) 05/02/24 17:28 Carbon Dioxide 26 mmol/L (22-29) 05/02/24 17:28 Anion Gap 16.6 (5-19) 05/02/24 17:28 BUN 39 mg/dL (8-23) H 05/02/24 17:28 Creatinine 3.2 mg/dL (0.5-0.9) H 05/02/24 17:28 GFR Calculation Not Reportable 05/02/24 17: Glucose 106 mg/dL (65-115) 05/02/24 17: Calculated Osmolality 310 mOsm/kg (285-295) H 05/02/24 17:28 Calcium 9.6 mg/dL (8.5-10.5) 05/02/24 17:28 Total Bilirubin 0.3 mg/dL (0.15-1.2) 05/02/24 17:28 AST 13 U/L (0-32) 05/02/24 17:28 ALT 13 U/L (0-33) 05/02/24 17:28 Alkaline Phosphatase 62 U/L (35-105) 05/02/24 17:28 Total Protein 6.6 g/dL (6.6-8.7) 05/02/24 17:28 Albumin 4.1 g/dL (3.5-5.2) 05/02/24 17:28 Globulin 2.5 g/dL (1.3-4.6) 05/02/24 17:28 Procalcitonin 0.38 ng/mL (0-0.5) 05/02/24 17:28 Urine Color Yellow (Yellow) 05/02/24 19:03 Urine Appearance Clear (CLEAR) 05/02/24 19:03 Urine pH 5.5 (5-7) 05/02/24 19:03 Ur Specific [place] 1.011 (1.005-1.030) 05/02/24 19:03 Urine Protein 2+ (Negative) A 05/02/24 19:03 Urine Glucose (UA) Negative (Normal) 05/02/24 19:03 Urine Ketones Negative (Negative) 05/02/24 19:03 Urine Blood Negative (Negative) 05/02/24 19:03 Urine Nitrate Negative (Negative) 05/02/24 19:03 Urine Bilirubin Negative (Negative) 05/02/24 19:03 Urine Urobilinogen 0.2 mg/dL (Negative) 05/02/24 19:03 Ur Leukocyte Esterase Negative (Negative) 05/02/24 19:03 Urine RBC 0-2 /hpf (0-2) 05/02/24 19:03 Urine WBC 0-5 /hpf (0-5) 05/02/24 19:03 Ur Squamous Epith Cells 0-5 /hpf (0-5) 05/02/24 19:03 Amorphous Sediment Not Reportable 05/02/24 19:03 Urine Bacteria None seen /hpf (NONE) 05/02/24 19:03 Hyaline Casts 2.05 /lpf 05/02/24 19:03 Coronavirus (PCR) Negative (Negative) 05/02/24 16:15 Influenza A (PCR) Negative (Negative) 05/02/24 16:15 Influenza Type B (PCR) Negative (Negative) 05/02/24 16:15 RSV (PCR) Negative (Negative) 05/02/24 16:15 All radiology interpretation(s) finalized by discharge Discharge Plan Discharge Patient Disposition: Placed in Observation Admit Provider: Travis Alex Clinical Impression: Hypercapnic respiratory failure, COPD with acute exacerbation, Chronic hypoxemic respiratory failure Discharge Diet: Usual diet Discharge Activity: Increase activity as tolerated Coding Level of Care Code ED Lap Polisher for Dhruv Benson
[2024-05-02 17:32] LABS: Influenza A NEGATIVE (Negative); Influenza B NEGATIVE (Negative); Respiratory Syncytial Virus Ce NEGATIVE (Negative); SARS-CoV-2 PCR NEGATIVE (Negative)
[2024-05-02 17:35] LABS: Basophils % 0.7 %; Eosinophils # 0.1 10^3/uL (0.0-0.8); Eosinophils % 1.1 %; Hematocrit 32.2 % (36-47); Lymphocytes # 0.2 10^3/uL (0.8-4.8); Lymphocytes % 3.7 %; Mean Corpuscular HGB Conc 29.2 g/dL (30-55); Mean Corpuscular Hemoglobin 29.4 pg (27-33); Mean Corpuscular Volume 100.6 fl (85-98); Mean Platelet Volume 11.7 fL (7.4-10.4); Monocytes # 0.5 10^3/uL (0.2-0.9); Monocytes % 8.6 %; Neutrophils # 4.83 10^3/uL (1.8-7.7); Nucleated Red Blood Cells % 0 %; Platelet Count 112 10^3/cmm (157-399); Red Cell Distribution Width 16.5 % (12.1-15.1); White Blood Count 5.68 10^3/uL (3.29-11.43)
[2024-05-02 17:49] LABS: Alanine Aminotransferase 13 U/L (0-33); Albumin Level 4.1 g/dL (3.5-5.2); Alkaline Phosphatase 62 U/L (35-105); Anion Gap 16.6 (5-19); Aspartate Amino Transferase 13 U/L (0-32); Blood Urea Nitrogen 39 mg/dL (8-23); Calcium 9.6 mg/dL (8.5-10.5); Carbon Dioxide 26 mmol/L (22-29); Chloride 107 mmol/L (98-107); Creatinine Clr Calc Pharmacy 10.8182; Globulin 2.5 g/dL (1.3-4.6); Glucose 106 mg/dL (65-115); Osmolality Calculated 310 mOsm/kg (285-295); Potassium 4.6 mmol/L (3.5-5.1); Sodium 145 mmol/L (136-145); Total Bilirubin 0.3 mg/dL (0.15-1.2); Total Protein 6.6 g/dL (6.6-8.7)
[2024-05-02] MEDS: dexamethasone 10 mg/mL INJ IM (18:18)
[2024-05-02] MEDS: ipratropium-albuterol 3 mL Neb INHALATION (18:25)
[2024-05-02 18:51] LABS: ABG PCO2 58.1 mmHg (35-45); ABG PH Result 7.26 (7.35-7.45); Arterial Blood Gas Hematocrit 28.5 % (37-47); Base Excess ABG -1.4 mmol/L (-2.0-2.0); Blood Gas Allen Test Pos; Blood Gas Sample Type Arterial; Carboxyhemoglobin 1.5 %THgb (0.4-20.1); HCO3 ABG 26.1 mmol/L (22-26); HGB O2 Sat 86.3 % (95-100); Ionized Calcium Level - ABG 1.3 mmol/L (1.1-1.4); Methemoglobin 0.3 % (0.4-1.5); PO2 ABG 52.9 mmHg (80.0-100.0); Potassium Level - ABG 4.1 mmol/L (3.5-5.0); Total Hemoglobin 9.3 g/dL (12-16)
[2024-05-02 18:52] LABS: Alveolar-Arterial Oxygen Gradi 13.6 mmHg (5-10); Blood Gas Operator Identificat glc; Blood Gas Sample Site Radial, left; Oxygen Device NC; PO2 FiO2 Ratio Arterial Blood 165
--- NOTE | 2024-05-02 19:14 | P.HP_ITS ---
Providers/Chief Complaint 2 Primary Care Provider: Jj Monk MD Chief Complaint: cough, weakness, back pain History of Present Illness [place] Doe is a 78 year old female with a past medical history significant for congestive heart failure, hypertension, asthma/COPD overlap syndrome, chronic kidney disease stage, severe pulmonary hypertension, sleep apnea, pericardial effusion status post window, chronic hypoxic respiratory failure on 3 L baseline and multiple other comorbidities who presents to the emergency department with shortness of breath x 2 days. She endorses associated symptoms of cough, congestion and fevers. Patient reports being hypoxic with SpO2 in the 80s on her home 3 L which was turned up to 4 L. Exertion worsens symptoms. Rest improves. She does endorse exposure to recent influenza. In the emergency department, blood gas revealed acute hypercapnia with pCO2 of 58.1 mmHg resulting in a pH of 7.26. Labs were significant for acute kidney injury on chronic kidney disease with a creatinine of 3.2, previously 2.7 mg/dL. Chest x-ray showed small bilateral pleural effusions. Review of Systems 2 Narrative: A complete review of systems was obtained and is negative except as stated in HPI. Medications/Allergies Home Medications ?Medication ?Instructions ?Recorded ?Confirmed ?Last Taken ?Type aspirin 81 mg tablet,delayed 81 mg PO DAILY 11/06/22 0 04/18/24 02/17/24 History release Held on 04/08/24. Instructions: hold till seen pcp hydrocodone 10 mg-acetaminophen 1 tab PO Q6H PRN Pain 11/06/22 04/18/24 02/17/24 History 325 mg tablet Oxygen NC 2-3 L/min #1 ea 11/12/22 04/18/24 Unkn own Rx oxygen at 2/L min #1 ea 12/09/22 04/18/24 Unkn own Rx metoprolol tartrate 25 mg tablet 25 mg PO BID 30 days #180 tabs 03/30/23 04/18/24 02/17/24 Rx GELY KNEE BRACE #1 ea 05/17/23 04/18/24 Unkn own Rx Wheel Chair #1 ea 05/21/23 04/18/24 Unkn own Rx Hinged Knee Brace #1 ea 07/20/23 04/18/24 Unkn own Rx amlodipine 10 mg tablet 10 mg PO DAILY high blood pr essure 12/09/23 04/18/24 02/17/24 Rx #90 tabs furosemide 20 mg tablet (Lasix) 20 mg PO BID #60 tabs 04/03/24 04/18/24 Unknown Rx ferrous sulfate 325 mg (65 mg 325 mg PO DAILY 04/05/24 04/18/24 Unknown History iron) tablet (FeroSul) fluticasone propionate 115 2 puff inhalation BID 04/0504/18/24 Unknown History mcg-salmeterol 21 mcg/actuation HFA inhaler (Advair HFA) gabapentin 300 mg capsule 300 mg PO QPM 04/05/2404/18 Unknown History ropinirole 0.5 mg tablet 0.5 mg PO QPM 04/05/2404/18 Unknown History ciprofloxacin HCl 500 mg tablet 500 mg PO BID #8 tabs 04/08/24 04/18/24 Unknown Rx (Cipro) sucralfate 1 gram tablet 1 g PO BID #60 tabs 04/08/24 04/18/24 Unknown Rx amoxicillin 500 mg capsule 1,000 mg (2 x 500 mg) PO BI D 14 04/18/24 04/18/24 Unknown Rx days #56 caps clarithromycin 500 mg tablet 500 mg PO BID 14 days #28 tabs 04/18/24 04/18/24 Unknown Rx pantoprazole 40 mg tablet,delayed 40 mg PO BID 2 weeks #28 tabs 04/18/24 04/18/24 Unknown Rx release (Protonix) dexamethasone 6 mg tablet 6 mg PO DAILY 5 days #5 tabs 05/02/24 Unknown Rx doxycycline hyclate 100 mg capsule 100 mg PO BID 7 day s #14 caps 05/02/24 Unknown Rx Allergies Allergy/AdvReac Type Severity Reaction Status Date / Time No Known Allergies Allergy Verified 05/02/24 15:58 PFSH Acute 2 PFSH: Medical History Asymptomatic bradycardia C. difficile diarrhea Bilateral shoulder pain CKD (chronic kidney disease) stage 3, GFR 30-59 ml/min Chronic low back pain with right-sided sciatica [facility], Dr. Falcon Hypertension COPD (chronic obstructive pulmonary disease) Asthma Anxiety Oxygen dependent Surgical History History of hip surgery History of ankle surgery History of back surgery Hx of hysterectomy Family History Father No problems noted. Mother Stroke Social History Smoking and tobacco/nicotine status: former use of tobacco/nicotine Quit status (tobacco/nicotine): has quit using Year quit tobacco: 2021 Former quit date comment: 1ppd X 60 years Second hand smoke exposure: No Alcohol intake: former Substance/Drug Use: never Vitals/I&O/Wt Last Vital Signs Temp 98.5 F 05/02/24 15:54 Pulse 80 05/02/24 18:39 Resp 16 05/02/24 18:39 BP 132/66 05/02/24 18:39 Pulse Ox 93 05/02/24 18:39 O2 Del Method Nasal Cannula 05/02/24 18:39 O2 Flow Rate 3 05/02/24 18:28 Weight last 48 hrs Weight 43.091 kg Physical Exam 2 Narrative: General: Patient is awake and alert. Conversational. Head: Normocephalic. Atraumatic. EOM intact. Neck: No JVD. Cardiovascular: RRR. No gallops. No murmurs. Lungs: Moderate air movement. Faint end expiratory wheeze. Breath sounds diminished bilateral bases. No rales or rhonchi. Skin: No jaundice. No rashes. Abdomen: Normal bowel sounds, abdomen soft and nontender. Genito Urinary: Genital exam not performed since complaints not related. Rectal: Rectal exam not performed since no symptoms indicated blood loss. Extremities: No cyanosis or clubbing. Musculoskeletal: No swollen or erythematous joints. Neurological: Moves all 4 extremities. No myoclonus. Data 05/02/24 17:28 05/02/24 17:28 A&P Assessment and plan (1) Hypercapnic respiratory failure: Acute hypercapnic respiratory failure secondary to COPD exacerbation Chronic hypoxic respiratory failure on 3 L baseline oxygen Treat underlying COPD OPD Start BiPAP treatment Supportive care (2) COPD with acute exacerbation: Start systemic steroids Pulmicort Scheduled DuoNebs (3) Acute on chronic renal failure: Acute kidney injury on CKD stage IV Encourage oral intake Renally dose medications Hold Lasix dose Repeat labs in a.m. Qualifiers: Acute renal failure type: unspecified Chronic kidney disease stage: u nspecified stage Qualified Code(s): N17.9 - Acute kidney failure, unspecified; N18.9 - Chronic kidney disease, unspecified (4) Hypertension: Continue home medications Qualifiers: Hypertension type: resistant hypertension Qualified Code(s): I1A.0 - Resistant hypertension (5) GERD (gastroesophageal reflux disease): Continue home PPI Plan DVT prophylaxis: Heparin PDMP PDMP Reviewed: Not Reviewed Attestations 2 Medical Necessity Statement*: Patient presents with shortness of breath, found to have suspected viral illness resulting in acute COPD with acute hypercapnic respiratory failure with expected hospitalization not to cross 2 midnights for IV steroids, breathing treatments and BiPAP treatment. Coding Level of Care Code Acute Code for [facility] Diagnoses Hypercapnic respiratory failure J96.92 COPD with acute exacerbation J44.1 Acute on chronic renal failure N17.9; N18.9 Acute renal failure type: unspecified Chronic kidney disease stage: unspecified stage Resistant hypertension I1A.0 Hypertension type: resistant hypertension GERD (gastroesophageal reflux disease) K21.9
[2024-05-02 19:18] LABS: Bilirubin Urine Negative (Negative); Blood Urine Negative (Negative); Glucose Urine UA Negative (Normal); Ketones Urine Negative (Negative); Leukocyte Esterase Urine Negative (Negative); Nitrate Urine Negative (Negative); Protein Urine 2+ (Negative); Specific Gravity, Urine 1.011 (1.005-1.030); Urine Appearance Clear (CLEAR); Urine Color Yellow (Yellow); Urobilinogen Urine 0.2 mg/dL (Negative); pH Urine 5.5 (5-7)
[2024-05-02 19:23] LABS: Add Urine Microscopic? YES; Bacteria Urine None Seen /hpf; Hyaline Casts Urine 2.05 /lpf; RBC Urine 0-2 /hpf (0-2); Squamous Epithelial Cell Urine 0-5 /hpf (0-5); WBC Urine 0-5 /hpf (0-5)
[2024-05-02 22:26] LABS: Procalcitonin 0.38 ng/mL (0-0.5)
[2024-05-02] MEDS: acetaminophen 325 mg Tablet 650 MG PO (22:40)
[2024-05-02] MEDS: methylPREDNISolone sod succ 40 mg/mL INJ IVP (22:41)
[2024-05-02] MEDS: heparin 5,000 unit/mL INJ 1 mL 5000 UNIT SUBCUT (22:43)
[2024-05-03] VITALS (62 sets, daily range): BP systolic 113–167; BP diastolic 51–103; PULSE 63–140; RESP 6–33; TEMP 37–37.2; O2SAT 77–98; BMI 19.7
[2024-05-03] MEDS: methylPREDNISolone sod succ 40 mg/mL INJ IVP ×4 (03:15→21:31)
[2024-05-03 03:25] LABS: Basophils % 0.3 %; Hematocrit 28.6 % (36-47); Lymphocytes # 0.1 10^3/uL (0.8-4.8); Lymphocytes % 2.1 %; Mean Corpuscular HGB Conc 29.7 g/dL (30-55); Mean Corpuscular Hemoglobin 29.5 pg (27-33); Mean Corpuscular Volume 99.3 fl (85-98); Mean Platelet Volume 11.6 fL (7.4-10.4); Neutrophils # 3.67 10^3/uL (1.8-7.7); Neutrophils % 95.8 %; Nucleated Red Blood Cells % 0 %; Platelet Count 110 10^3/cmm (157-399); Red Blood Count 2.88 10^6/uL (3.85-5.65); Red Cell Distribution Width 16.4 % (12.1-15.1); White Blood Count 3.83 10^3/uL (3.29-11.43)
[2024-05-03 03:42] LABS: Anion Gap 18.7 (5-19); Blood Urea Nitrogen 40 mg/dL (8-23); Calcium 9.5 mg/dL (8.5-10.5); Carbon Dioxide 22 mmol/L (22-29); Chloride 105 mmol/L (98-107); Creatinine Clr Calc Pharmacy 10.1819; Glucose 211 mg/dL (65-115); Magnesium 1.3 mg/dL (1.7-2.3); Osmolality Calculated 308 mOsm/kg (285-295); Phosphorus 3.7 mg/dL (2.5-4.5); Potassium 4.7 mmol/L (3.5-5.1); Sodium 141 mmol/L (136-145)
--- NOTE | 2024-05-03 08:16 | PC.NURSE ---
PATIENT SPEAKING OF AMA BEFORE THE ROADS GET BAD. NURSE ENCOURAGED PATIENT TO STAY. PATIENT STATES WELL, I'LL WAIT TO SEE THE DOCTOR, I GUESS.
--- NOTE | 2024-05-03 08:34 | PC.PHAR ---
Pt unresponsive to several visits to the room to verify med list. Called and verified current medications with [facility] pharmacist.
--- NOTE | 2024-05-03 08:38 | PC.NURSE ---
admitted in to room 106 from er via w/c at 0830.report received.pt is alert and awake and oriented x 4.denies pain at present.sr on monitor.oriented to room environment.instructed to notify staff for any increase in sob,pain,or for any concerns at all.pt verb understanding of instructions
[2024-05-03] MEDS: budesonide 0.5 mg/2 mL Neb INHALATION ×2 (09:15→21:15)
[2024-05-03] MEDS: ipratropium-albuterol 3 mL Neb INHALATION ×4 (09:15→21:15)
[2024-05-03] MEDS: magnesium sulfate premix 2 GM/50 ML PIGGYBACK IV (10:32)
[2024-05-03] MEDS: heparin 5,000 unit/mL INJ 1 mL 5000 UNIT SUBCUT ×2 (10:32→21:29)
[2024-05-03 12:02] LABS: Glucose Point of Care 232 mg/dL (70-110)
--- NOTE | 2024-05-03 13:18 | P.PN_ITS ---
Subjective 2 Subjective: 78-year-old female with a past medical h istory of congestive heart failure, hypertension, asthma/COPD overlap syndrome (at home on [facility]), chronic kidney disease stage 3, severe pulmonary hypertension, sleep apnea, pericardial effusion status post window, chronic hypoxic respiratory failure on 3 L baseline oxygen, and multiple other comorbidities presents with shortness of breath for 2 days. The patient noted worsening shortness of breath despite using her regular inhalers every day. Associated symptoms included chills. She denied cough or fever. In the emergency department, she was started on Solu-Medrol 40 mg IV q6hr, Pulmicort, and placed on BiPAP. Initial evaluation revealed: - Laboratory Findings: Hemoglobin 9.4, h ematocrit 32.2, platelets 112, sodium 145, potassium 4.6, chloride 107, bicarbonate 26, BUN 39, creatinine 3.2 (baseline around 2.7-3.0), magnesium 1.3. - Imaging Studies: Chest x-ray showed sm all bilateral pleural effusions. The patient is currently requiring 6 L of oxygen, significantly higher than her baseline of 3 L at home. She remains symptomatic despite interventions. Vitals/I&O/Wt Last Vital Signs Temp 98.6 F 05/03/24 12:00 Pulse 96 05/03/24 12:00 Resp 20 H 05/03/24 12:00 BP 151/66 05/03/24 12:00 Pulse Ox 91 05/03/24 12:00 O2 Del Method Nasal Cannula 05/03/24 12:00 O2 Flow Rate 6 05/03/24 12:00 FiO2 60 05/03/24 08:35 05/02/24 05/03/24 05/03/24 22:59 06:59 14:59 Output Total 100 / 100 Balance -100 / -100 Weight last 48 hrs Weight 48.988 kg Weight 43.091 kg Physical Exam 2 Narrative: General: Patient is awake and alert. Conversational. Head: Normocephalic. Atraumatic. EOM intact. Neck: No JVD. Cardiovascular: RRR. No gallops. No murmurs. Lungs: Moderate air movement. Faint end expiratory wheeze. Breath sounds diminished bilateral bases. No rales or rhonchi. Skin: No jaundice. No rashes. Abdomen: Normal bowel sounds, abdomen soft and nontender. Genito Urinary: Genital exam not performed since complaints not related. Rectal: Rectal exam not performed since no symptoms indicated blood loss. Extremities: No cyanosis or clubbing. Musculoskeletal: No swollen or erythematous joints. Neurological: Moves all 4 extremities. No myoclonus. Data 05/03/24 03:17 05/03/24 03:17 A&P Assessment and plan (1) Hypercapnic respiratory failure: (2) COPD with acute exacerbation: (3) Acute on chronic renal failure: Qualifiers: Acute renal failure type: unspecified Chronic kidney disease stage: u nspecified stage Qualified Code(s): N17.9 - Acute kidney failure, unspecified; N18.9 - Chronic kidney disease, unspecified (4) Hypertension: Qualifiers: Hypertension type: resistant hypertension Qualified Code(s): I1A.0 - Resistant hypertension (5) GERD (gastroesophageal reflux disease): Plan Acute on chronic Hypoxic Respiratory Failure / COPD exacerbation - Likely exacerbation of underlying COPD/asthma overlap syndrome, requiring increased oxygen support and BIPAP - Currenlty on 6L via NC - Started on solu-medrol 40 mg IV q6hr - Pulmicort 0.5 BID - DuoNeb QID Differential Diagnosis: 1. Progression of underlying chronic hypoxic respiratory failure. 2. Superimposed infection, though no clear signs of pneumonia on imaging. Plan: 1. Continue Solu-Medrol 40 mg IV q6hr and Pulmicort nebulizers. 2. Maintain on BiPAP, especially at nighttime, with goal to wean oxygen requirements. 3. Closely monitor oxygen saturation and respiratory status. 4. Consider repeat chest x-ray if no improvement. 5. Home oxygen eval prior or discharge Acute on chronic stage IV Kidney disease - Creatinine elevated to 3.2 from baseline of 2.7-3.0, likely pre-renal in the setting of acute illness. - Nephrology follow-up as previously scheduled for next Wednesday. Differential Diagnosis: 1. Volume depletion contributing to pre-renal azotemia. 2. Progression of underlying chronic kidney disease. Plan: 1. Monitor creatinine, BUN, and urine output closely. 2. Holding Lasix and Lisinopril for now 3. Consider inpatient nephrology consultation via telemedicine if renal function worsens significantly from baseline. Congestive Heart Failure - Underlying history of congestive heart failure, currently no acute decompensation. Plan: 1. Monitor daily volume status while off diuretics. The patient expressed a desire to go home, but was advised to remain in the hospital for at least another day given her current oxygen requirements and overall clinical status. \ PDMP PDMP Reviewed: Not Reviewed Attestations 2 Medical Necessity Statement*: Patient presents with shortness of breath, found to have suspected viral illness resulting in acute COPD with acute hypercapnic respiratory failure with expected hospitalization not to cross 2 midnights for IV steroids, breathing treatments and BiPAP treatment. Coding Level of Care Code Acute Code for [facility] Diagnoses Hypercapnic respiratory failure J96.92 COPD with acute exacerbation J44.1 Acute on chronic renal failure N17.9; N18.9 Acute renal failure type: unspecified Chronic kidney disease stage: unspecified stage Resistant hypertension I1A.0 Hypertension type: resistant hypertension GERD (gastroesophageal reflux disease) K21.9
[2024-05-03] MEDS: HYDROcodone-acetaminophen 10-325 mg Tablet 1 TAB PO ×2 (15:37→21:30)
[2024-05-03] MEDS: sucralfate 1 gm Tablet PO (18:12)
[2024-05-03] MEDS: gabapentin 300 mg Capsule PO (18:12)
[2024-05-03] MEDS: pantoprazole DR 40 mg Tablet PO (18:12)
[2024-05-03] MEDS: phenol oral Spray 177 mL 3 SPRAY MUCOUS MEM (22:24)
[2024-05-04] VITALS (18 sets, daily range): BP systolic 126–158; BP diastolic 56–72; PULSE 69–103; RESP 16–26; TEMP 36.6–37.1; O2SAT 88–99
[2024-05-04] MEDS: methylPREDNISolone sod succ 40 mg/mL INJ IVP ×4 (04:02→21:15)
[2024-05-04] MEDS: acetaminophen 325 mg Tablet 650 MG PO ×2 (04:02→14:36)
[2024-05-04] MEDS: heparin 5,000 unit/mL INJ 1 mL 5000 UNIT SUBCUT ×2 (08:58→21:15)
[2024-05-04] MEDS: pantoprazole DR 40 mg Tablet PO ×2 (08:59→17:33)
[2024-05-04] MEDS: sucralfate 1 gm Tablet PO ×2 (08:59→17:33)
[2024-05-04] MEDS: aspirin 81 mg EC Tablet PO (08:59)
[2024-05-04] MEDS: ipratropium-albuterol 3 mL Neb INHALATION ×4 (09:09→20:07)
[2024-05-04] MEDS: budesonide 0.5 mg/2 mL Neb INHALATION ×2 (09:09→20:07)
--- NOTE | 2024-05-04 10:38 | PM.PN ---
Subjective Subjective: 78-year-old female with a past medical history of congestive heart failure, hypertension, asthma/COPD overlap syndrome (at home on [facility]), chronic kidney disease stage 3, severe pulmonary hypertension, sleep apnea, pericardial effusion status post window, chronic hypoxic respiratory failure on 3 L baseline oxygen, and multiple other comorbidities presents with shortness of breath for 2 days. The patient noted worsening shortness of breath despite using her regular inhalers every day. Associated symptoms included chills. She denied cough or fever. In the emergency department, she was started on Solu-Medrol 40 mg IV q6hr, Pulmicort, and placed on BiPAP. Initial evaluation revealed: - Laboratory Findings: Hemoglobin 9.4, hematocrit 32.2, platelets 112, sodium 145, potassium 4.6, chloride 107, bicarbonate 26, BUN 39, creatinine 3.2 (baseline around 2.7-3.0), magnesium 1.3. - Imaging Studies: Chest x-ray showed small bilateral pleural effusions. The patient is currently requiring 6 L of oxygen, significantly higher than her baseline of 3 L at home. 05/04 Overnight patient noted improvement in overall status however still required BIPAP overnight and remained on 6 lpm of o2 via NC. Vitals/I&O/Wt Last Vital Signs Temp 97.8 F 05/04/24 07:25 Pulse 83 05/04/24 09:10 Resp 19 H 05/04/24 09:10 BP 136/61 05/04/24 07:25 Pulse Ox 96 05/04/24 09:10 O2 Del Method Nasal Cannula 05/04/24 09:10 O2 Flow Rate 6 05/04/24 09:10 FiO2 50 05/04/24 04:00 05/03/24 05/04/24 05/04/24 22:59 06:59 14:59 Intake Total 440 / 800 200 / 1000 Output Total 250 / 250 Balance 190 / 550 200 / 750 Weight last 48 hrs Weight 48.988 kg Weight 48.988 kg Weight 43.091 kg Physical Exam Narrative: General: Patient is awake and alert. NAD Head: Normocephalic. Atraumatic. EOM intact. Neck: No JVD. Cardiovascular: RRR. No gallops. No murmurs. Lungs: Non-labored, decreased at bases, on 6L Skin: No jaundice. No rashes. Abdomen: Normal bowel sounds, abdomen soft and nontender. Extremities: No cyanosis or clubbing. Musculoskeletal: No swollen or erythematous joints. Neurological: Moves all 4 extremities. No myoclonus. Data 05/03/24 03:17 05/03/24 03:17 A&P Assessment and plan (1) Hypercapnic respiratory failure: (2) COPD with acute exacerbation: (3) Acute on chronic renal failure: Qualifiers: Acute renal failure type: unspecified Chronic kidney disease stage: unspecified stage Qualified Code(s): N17.9 - Acute kidney failure, unspecified; N18.9 - Chronic kidney disease, unspecified (4) Hypertension: Qualifiers: Hypertension type: resistant hypertension Qualified Code(s): I1A.0 - Resistant hypertension (5) GERD (gastroesophageal reflux disease): Plan Acute on chronic Hypoxic Respiratory Failure / COPD exacerbation - Likely exacerbation of underlying COPD/asthma overlap syndrome, requiring increased oxygen support and BIPAP - Currently on 6L via NC - Solu-medrol 40 mg IV q6hr - Pulmicort 0.5 BID - DuoNeb QID Differential Diagnosis: 1. Progression of underlying chronic hypoxic respiratory failure. 2. Superimposed infection, though no clear signs of pneumonia on imaging. Plan: For now will continue Solu-Medrol 40 mg IV q6hr and Pulmicort nebulizers. She has continued to require 6lpm of supplemental oxygen as well as bipap overnight. States that she is a mouth breather at night which is why she becomes more hypoxic. Has never been told she has sleep apnea. If her O2 requirements improve, remain off bipap will plan to transition to prednisone. Possibly next 1-2 days. Acute on chronic stage IV Kidney disease - Creatinine elevated to 3.2 from baseline of 2.7-3.0, likely pre-renal in the setting of acute illness. - Nephrology follow-up as previously scheduled for next Wednesday. Differential Diagnosis: 1. Volume depletion contributing to pre-renal azotemia. 2. Progression of underlying chronic kidney disease. Plan: She has had fluctuating creatinine, yesterday this did increase to 3.4. Have been holding her diuretics and ELLIOTT inhibitor since admission. Urine output noted to be 0.21 ml/kg/hr. If renal function continues to worsen will plan to consult with tele-nephrology. Congestive Heart Failure - Underlying history of congestive heart failure, currently no acute decompensation. Plan: 1. Monitor daily volume status while off diuretics. No change to plan PDMP PDMP Reviewed: Not Reviewed Attestations Medical Necessity Statement*: Patient presents with shortness of breath, found to have suspected viral illness resulting in acute COPD with acute hypercapnic respiratory failure with expected hospitalization not to cross 2 midnights for IV steroids, breathing treatments and BiPAP treatment. Coding Level of Care Code Acute Code for [facility] Diagnoses Hypercapnic respiratory failure J96.92 COPD with acute exacerbation J44.1 Acute on chronic renal failure N17.9; N18.9 Acute renal failure type: unspecified Chronic kidney disease stage: unspecified stage Resistant hypertension I1A.0 Hypertension type: resistant hypertension GERD (gastroesophageal reflux disease) K21.9
[2024-05-04 11:26] LABS: Lymphocytes # 0.1 10^3/uL (0.8-4.8); Lymphocytes % 0.6 %; Mean Corpuscular Hemoglobin 29.3 pg (27-33); Mean Corpuscular Volume 97.6 fl (85-98); Mean Platelet Volume 12.3 fL (7.4-10.4); Monocytes # 0.1 10^3/uL (0.2-0.9); Monocytes % 1.4 %; Neutrophils # 9.82 10^3/uL (1.8-7.7); Neutrophils % 97.2 %; Nucleated Red Blood Cells % 0 %; Platelet Count 137 10^3/cmm (157-399); Red Blood Count 3.28 10^6/uL (3.85-5.65); Red Cell Distribution Width 16.3 % (12.1-15.1)
[2024-05-04 11:52] LABS: Blood Urea Nitrogen 48 mg/dL (8-23); Calcium 9.8 mg/dL (8.5-10.5); Carbon Dioxide 23 mmol/L (22-29); Chloride 101 mmol/L (98-107); Creatinine Clr Calc Pharmacy 11.0136; Glucose 204 mg/dL (65-115); Osmolality Calculated 306 mOsm/kg (285-295); Sodium 139 mmol/L (136-145)
[2024-05-04] MEDS: phenol oral Spray 177 mL 3 SPRAY MUCOUS MEM ×2 (12:14→22:33)
[2024-05-04] MEDS: gabapentin 300 mg Capsule PO (17:33)
[2024-05-04] MEDS: HYDROcodone-acetaminophen 10-325 mg Tablet 1 TAB PO (19:38)
[2024-05-05] VITALS (16 sets, daily range): BP systolic 129–155; BP diastolic 53–84; PULSE 71–102; RESP 17–22; TEMP 36.3–37.1; O2SAT 88–94
[2024-05-05 03:04] LABS: Basophils % 0.1 %; Hematocrit 29.7 % (36-47); Lymphocytes % 0.4 %; Mean Corpuscular HGB Conc 29.6 g/dL (30-55); Mean Corpuscular Hemoglobin 28.9 pg (27-33); Mean Corpuscular Volume 97.4 fl (85-98); Mean Platelet Volume 11.5 fL (7.4-10.4); Monocytes # 0.2 10^3/uL (0.2-0.9); Monocytes % 1.9 %; Neutrophils # 10.11 10^3/uL (1.8-7.7); Neutrophils % 96.5 %; Nucleated Red Blood Cells % 0 %; Platelet Count 138 10^3/cmm (157-399); Red Blood Count 3.05 10^6/uL (3.85-5.65); Red Cell Distribution Width 16.2 % (12.1-15.1); White Blood Count 10.47 10^3/uL (3.29-11.43)
[2024-05-05 03:25] LABS: Anion Gap 14.1 (5-19); Blood Urea Nitrogen 58 mg/dL (8-23); Calcium 9.4 mg/dL (8.5-10.5); Carbon Dioxide 23 mmol/L (22-29); Chloride 103 mmol/L (98-107); Creatinine Clr Calc Pharmacy 9.0862; Glucose 150 mg/dL (65-115); Osmolality Calculated 301 mOsm/kg (285-295); Potassium 4.1 mmol/L (3.5-5.1); Sodium 136 mmol/L (136-145)
[2024-05-05] MEDS: methylPREDNISolone sod succ 40 mg/mL INJ IVP ×4 (04:40→21:16)
[2024-05-05] MEDS: HYDROcodone-acetaminophen 10-325 mg Tablet 1 TAB PO ×2 (04:40→20:16)
[2024-05-05] MEDS: aspirin 81 mg EC Tablet PO (08:33)
[2024-05-05] MEDS: sucralfate 1 gm Tablet PO ×2 (08:33→16:19)
[2024-05-05] MEDS: heparin 5,000 unit/mL INJ 1 mL 5000 UNIT SUBCUT ×2 (08:33→21:18)
[2024-05-05] MEDS: acetaminophen 325 mg Tablet 650 MG PO (08:33)
[2024-05-05] MEDS: pantoprazole DR 40 mg Tablet PO ×2 (08:33→16:19)
[2024-05-05] MEDS: budesonide 0.5 mg/2 mL Neb INHALATION ×2 (08:38→19:59)
[2024-05-05] MEDS: ipratropium-albuterol 3 mL Neb INHALATION ×4 (08:38→19:59)
[2024-05-05] MEDS: phenol oral Spray 177 mL 3 SPRAY MUCOUS MEM ×2 (14:43→21:16)
--- NOTE | 2024-05-05 15:06 | XR_ITS ---
WS: [id number] XR chest 1V portable [id number] REASON FOR EXAM: SOB FINDINGS: Compared to the examination of 05/02/2024 there has been some resolution of the interstitial lung opacities peripherally suggesting resolving/resolved pulmonary edema. There continues to be blunting of both costophrenic angles suggesting pleural effusions however the CT scan of 04/05/2024 of the abdomen and pelvis demonstrated no significant amount of pleural fluid. There is opacification in the left lower chest which obscures the left hemidiaphragm which likely is a combination of atelectasis of the left lower lobe and left pleural effusion. XR/XR chest 1V portable [id number] IMPRESSION: Blunting of both costophrenic angles as above. Presumed resolution of pulmonary edema. Interval opacification in the left lower lung as noted above.
--- NOTE | 2024-05-05 15:17 | PM.CONSULT ---
Providers/Reason For Consult Consulting Physician/Specialty*: kommana/Nephrology Reason for Consult*: Acute on CKD Attending Physician: Celina Herrera Primary Care Provider: Jj Monk MD History of Present Illness History of Present Illness [place] Doe is a 78 year old female patient is a 78-year-old female with past medical history significant for CHF, hypertension, asthma COPD chronic kidney disease stage IV, severe pulmonary hypertension sleep apnea on 6 L oxygen at home presented to the emergency department with shortness of breath. Patient was recently admitted to the hospital for similar complaints and was discharged home. About a month ago patient had CANDICE at that time with a creatinine peak up to 4, but creatinine has improved to 2.7 at the time of discharge and patient was at baseline respiratory status. Creatinine on presentation was 3.2 progressively gotten worse to 4.2 today. Patient denies any complaints she feels like she her breathing is better today. She is getting steroids and nebulizer treatments for possible asthma. Review of Systems Narrative: Negative Medications/Allergies Home Medications ?Medication ?Instructions ?Recorded ?Confirmed ?Last Taken ?Type aspirin 81 mg tablet,delayed 81 mg PO DAILY 11/06/22 05/03/24 02/17/24 History release Held on 04/08/24. Instructions: hold till seen pcp hydrocodone 10 mg-acetaminophen 1 tab PO Q6H PRN Pain 11/06/22 05/03/24 02/17/24 History 325 mg tablet Oxygen NC 2-3 L/min #1 ea 11/12/22 05/03/24 Unknown Rx oxygen at 2/L min #1 ea 12/09/22 05/03/24 Unknown Rx metoprolol tartrate 25 mg tablet 25 mg PO BID 30 days #180 tabs 03/30/23 05/03/24 02/17/24 Rx GELY KNEE BRACE #1 ea 05/17/23 05/03/24 Unknown Rx Wheel Chair #1 ea 05/21/23 05/03/24 Unknown Rx Hinged Knee Brace #1 ea 07/20/23 05/03/24 Unknown Rx amlodipine 10 mg tablet 10 mg PO DAILY high blood pressure 12/09/23 05/03/24 02/17/24 Rx #90 tabs furosemide 20 mg tablet (Lasix) 20 mg PO BID #60 tabs 04/03/24 05/03/24 Unknown Rx ferrous sulfate 325 mg (65 mg 325 mg PO DAILY 04/05/24 05/03/24 Unknown History iron) tablet (FeroSul) fluticasone propionate 115 2 puff inhalation BID 04/05/24 05/03/24 Unknown History mcg-salmeterol 21 mcg/actuation HFA inhaler (Advair HFA) gabapentin 300 mg capsule 300 mg PO QPM 04/05/24 05/03/24 Unknown History ropinirole 0.5 mg tablet 0.5 mg PO QPM 04/05/24 05/03/24 Unknown History sucralfate 1 gram tablet 1 g PO BID #60 tabs 04/08/24 05/03/24 Unknown Rx pantoprazole 40 mg tablet,delayed 40 mg PO BID 2 weeks #28 tabs 04/18/24 05/03/24 Unknown Rx release (Protonix) dexamethasone 6 mg tablet 6 mg PO DAILY 5 days #5 tabs 05/02/24 Unknown Rx doxycycline hyclate 100 mg capsule 100 mg PO BID 7 days #14 caps 05/02/24 Unknown Rx budesonide 160 mcg-glycopyr 9 2 inh inhalation DAILY 05/03/24 05/03/24 Unknown History mcg-formot 4.8 mcg/actuation HFA inhaler (Breztri Aerosphere) lisinopril 40 mg tablet 10 mg PO DAILY 05/03/24 05/03/24 Unknown History potassium chloride 10 mEq 10 meq PO DAILY 05/03/24 05/03/24 Unknown History tablet,extended release prazosin 1 mg capsule 1 mg PO BID #180 caps 05/04/24 Unknown Rx Allergies Allergy/AdvReac Type Severity Reaction Status Date / Time No Known Allergies Allergy Verified 05/02/24 15:58 Current Medications Generic Name Dose Route Start Last Admin Trade Name Freq PRN Reason Stop Dose Admin Acetaminophen 650 mg 05/02/24 21:50 05/05/24 08:33 Acetaminophen 325 Mg Tablet PO 650 mg Q6H PRN Administration Mild/Mod Pain Or Temp >/= 101 Hydrocodone Bitart/Acetaminophen 1 tab 05/03/24 15:19 05/05/24 04:40 Hydrocodone-Acetaminophen 10-325 Mg Tablet PO 1 tab Q6H PRN Administration Pain Albuterol/Ipratropium 3 ml 05/03/24 08:00 05/05/24 11:49 Ipratropium-Albuterol 3 Ml Neb INHALATION 3 ml QID.RESPIRATORY JASBIR Administration Aspirin 81 mg 05/04/24 09:00 05/05/24 08:33 Aspirin 81 Mg Ec Tablet PO 81 mg DAILY JASBIR Administration Budesonide 0.5 mg 05/03/24 08:00 05/05/24 08:38 Budesonide 0.5 Mg/2 Ml Neb INHALATION 0.5 mg BID.RESPIRATORY JASBIR Administration Gabapentin 300 mg 05/03/24 18:00 05/04/24 17:33 Gabapentin 300 Mg Capsule PO 300 mg QPM JASBIR Administration Heparin Sodium (Porcine) 5,000 unit 05/02/24 21:50 05/05/24 08:33 Heparin 5,000 Unit/Ml Inj 1 Ml SUBCUT 5,000 unit Q12H JASBIR Administration Methylprednisolone Sodium Succinate 40 mg 05/02/24 21:50 05/05/24 08:33 Methylprednisolone Sod Succ 40 Mg/Ml Inj IVP 40 mg Q6H JASBIR Administration Pantoprazole Sodium 40 mg 05/03/24 18:00 05/05/24 08:[address] 40 Mg Tablet PO 40 mg BID JASBIR Administration Phenol 3 spray 05/03/24 21:18 05/05/24 14:43 Phenol Oral [place] 177 Ml MUCOUS MEM 3 spray Q2H PRN Administration SORE THROAT Sucralfate 1 gm 05/03/24 18:00 05/05/24 08:33 Sucralfate 1 Gm Tablet PO 1 gm BID JASBIR Administration PFSH Acute PFSH: Medical History Asymptomatic bradycardia C. difficile diarrhea Bilateral shoulder pain CKD (chronic kidney disease) stage 3, GFR 30-59 ml/min Chronic low back pain with right-sided sciatica [facility], Dr. Falcon Hypertension COPD (chronic obstructive pulmonary disease) Asthma Anxiety Oxygen dependent Surgical History History of hip surgery History of ankle surgery History of back surgery Hx of hysterectomy Family History Father No problems noted. Mother Stroke Social History Smoking and tobacco/nicotine status: former use of tobacco/nicotine Quit status (tobacco/nicotine): has quit using Year quit tobacco: 2021 Former quit date comment: 1ppd X 60 years Second hand smoke exposure: No Alcohol intake: former Substance/Drug Use: never Vitals/I&O/Wt Last Vital Signs Temp 98.0 F 05/05/24 11:55 Pulse 90 05/05/24 11:57 Resp 17 05/05/24 11:55 BP 129/53 05/05/24 11:55 Pulse Ox 90 05/05/24 11:55 O2 Del Method Nasal Cannula 05/05/24 11:55 O2 Flow Rate 6 05/05/24 11:49 FiO2 55 05/04/24 20:14 05/05/24 05/05/24 05/05/24 06:59 14:59 22:59 Intake Total 621 / 1941 560 / 560 Balance 621 / 1691 560 / 560 Weight last 48 hrs Weight 53.155 kg Weight 48.988 kg Physical Exam Narrative: awake , alert , no distress PPERLA 6l O2 nc S1S2 RRR per report Lungs - jen ronchi No edema Data 05/05/24 02:31 05/05/24 02:31 A&P Assessment and plan (1) CKD stage 4 secondary to hypertension: Plan 1. Acute on chronic kidney disease stage IV: Baseline creatinine in the 2-3 range patient now has a CANDICE with a creatinine up to 4 range . Patient always had fluctuating creatinine levels from 2-4 range based on her volume status. -UA with 2+ protein and Neg blood . - will check Urine eltrolytes , UPCR - Prior serological workup done in March: Normal complements negative ANCA, ROSE, GBM antibodies negative, sscx-[id number] antibodies negative -Patient has elevation of free kappa and lambda light chains but the ratio is normal.-Arrange hematology evaluate as outpatient -Renal function off diuretics for now, Discussed with patient and patient's daughter:-Do not wish to initiate dialysis. 2.Acute on chronic respiratory failure: Multifactorial in the setting of COPD, dependent, history of ChF and pulmonary hypertension -Getting IV steroids and nebulizer treatments -Will give diuretics as needed 3. 3. Anemia check iron studies will consider doing KIMANI 4. 4. History of CHF: 60% has grade 3/4 diastolic dysfunction Patient evaluated using audiovisual cart. Time spent 40 minutes PDMP PDMP Reviewed: Not Reviewed Consult Attestations Medical Necessity Statement: per mediicne Coding Level of Care Code Acute Code for Chg Fwd Diagnoses CKD stage 4 secondary to hypertension I12.9; N18.4
[2024-05-05] MEDS: gabapentin 300 mg Capsule PO (16:19)
--- NOTE | 2024-05-05 19:29 | P.PN_ITS ---
Subjective 2 Subjective: 78-year-old female with a past medical h istory of congestive heart failure, hypertension, asthma/COPD overlap syndrome (at home on [facility]), chronic kidney disease stage 3, severe pulmonary hypertension, sleep apnea, pericardial effusion status post window, chronic hypoxic respiratory failure on 3 L baseline oxygen, and multiple other comorbidities presents with shortness of breath for 2 days. The patient noted worsening shortness of breath despite using her regular inhalers every day. Associated symptoms included chills. She denied cough or fever. In the emergency department, she was started on Solu-Medrol 40 mg IV q6hr, Pulmicort, and placed on BiPAP. Initial evaluation revealed: - Laboratory Findings: Hemoglobin 9.4, h ematocrit 32.2, platelets 112, sodium 145, potassium 4.6, chloride 107, bicarbonate 26, BUN 39, creatinine 3.2 (baseline around 2.7-3.0), magnesium 1.3. - Imaging Studies: Chest x-ray showed sm all bilateral pleural effusions. The patient is currently requiring 6 L of oxygen, significantly higher than her baseline of 3 L at home. 05/04 Overnight patient noted improvement in overall status however still required BIPAP overnight and remained on 6 lpm of o2 via NC. 05/05 Patient today was still having some shortness of breath. Was found to have oxygen saturation in mid to high 80s with slight exertion. Remain on 6 L. Previously was documented that the patient was on 3 L however when reviewed with patients outpatient oxygen company this stated that she was prescribed 6 L of O2 via nasal cannula. Denied any chest pain. No fever or chills overnight. No nausea vomiting. Vitals/I&O/Wt Last Vital Signs Temp 98.0 F 05/05/24 16:00 Pulse 93 05/05/24 16:11 Resp 18 05/05/24 16:11 BP 141/84 05/05/24 16:00 Pulse Ox 91 05/05/24 16:11 O2 Del Method High Flow Nasal Cannula 05/05/24 16:11 O2 Flow Rate 6 05/05/24 16:11 FiO2 55 05/04/24 20:14 05/05/24 05/05/24 05/05/24 06:59 14:59 22:59 Intake Total 621 / 1941 560 / 560 240 / 800 Balance 621 / 1691 560 / 560 240 / 800 Weight last 48 hrs Weight 53.155 kg Weight 48.988 kg Physical Exam 2 Narrative: awake , alert , no distress PPERLA 6l O2 nc S1S2 RRR per report Lungs - jen ronchi No edema Data 05/05/24 02:31 05/05/24 02:31 A&P Assessment and plan (1) Hypercapnic respiratory failure: (2) COPD with acute exacerbation: (3) Acute on chronic renal failure: Qualifiers: Acute renal failure type: unspecified Chronic kidney disease stage: u nspecified stage Qualified Code(s): N17.9 - Acute kidney failure, unspecified; N18.9 - Chronic kidney disease, unspecified (4) Hypertension: Qualifiers: Hypertension type: resistant hypertension Qualified Code(s): I1A.0 - Resistant hypertension (5) GERD (gastroesophageal reflux disease): Plan Acute on chronic Hypoxic Respiratory Failure / COPD exacerbation - Likely exacerbation of underlying COPD/asthma overlap syndrome, requiring increased oxygen support and BIPAP - Currently on 6L via NC - Solu-medrol 40 mg IV q6hr - Pulmicort 0.5 BID - DuoNeb QID Plan: Patient remained off BiPAP overnight however O2 requirements remained around 5-6 L by nasal cannula. In review is patients DME patient was prescribed 6 L of O2 via nasal cannula. It is not clear if she was wearing 3 L at home. Currently still is getting short of breath with any minimal exertion. Repeat chest x-ray was performed which did not show any significant signs of fluid overload. At this time will continue her on Solu-Medrol as ordered. Attempt to deescalate as her O2 requirements improved. Addition will continue her on Pulmicort. If any change in mental status or respiratory status will need a chest x-ray /ABGs repeated. Acute on chronic stage IV Kidney disease - Creatinine elevated to 3.2 from baseline of 2.7-3.0, likely pre-renal in the setting of acute illness. - Nephrology follow-up as previously scheduled for next Wednesday. Plan: nephrology was consulted today due to progression of renal dysfunction with a creatinine that increased to 4.0. Higher than patients baseline. She did not appear to be volume overloaded however. Unfortunately urine output has not been monitor and recorded. Will need to strictly monitor input and output. Repeat BMP in a.m.. Further recommendations as per Nephrology. Congestive Heart Failure - Underlying history of congestive heart failure, currently no acute decompensation. Plan: 1. Monitor daily volume status while off diuretics. No change to plan PDMP PDMP Reviewed: Not Reviewed Attestations 2 Medical Necessity Statement*: Given patients respiratory distress requiring Solu-Medrol IV and now worsening renal failure will remain in hospital for an additional night. Coding Level of Care Code [facility] Hypercapnic respiratory failure J96.92 COPD with acute exacerbation J44.1 Acute on chronic renal failure N17.9; N18.9 Acute renal failure type: unspecified Chronic kidney disease stage: unspecified stage Resistant hypertension I1A.0 Hypertension type: resistant hypertension GERD (gastroesophageal reflux disease) K21.9
[2024-05-06] VITALS (17 sets, daily range): BP systolic 134–143; BP diastolic 57–69; PULSE 77–101; RESP 14–30; TEMP 36.4–36.9; O2SAT 87–94
[2024-05-06 04:06] LABS: Basophils % 0.1 %; Hematocrit 28.2 % (36-47); Lymphocytes % 0.3 %; Mean Corpuscular HGB Conc 30.1 g/dL (30-55); Mean Corpuscular Volume 96.2 fl (85-98); Mean Platelet Volume 12.2 fL (7.4-10.4); Monocytes # 0.2 10^3/uL (0.2-0.9); Monocytes % 1.8 %; Neutrophils # 9.65 10^3/uL (1.8-7.7); Neutrophils % 96.5 %; Nucleated Red Blood Cells % 0.2 %; Platelet Count 136 10^3/cmm (157-399); Red Blood Count 2.93 10^6/uL (3.85-5.65); Red Cell Distribution Width 16.4 % (12.1-15.1)
[2024-05-06 04:18] LABS: Blood Urea Nitrogen 68 mg/dL (8-23); Calcium 9.3 mg/dL (8.5-10.5); Carbon Dioxide 22 mmol/L (22-29); Chloride 99 mmol/L (98-107); Glucose 199 mg/dL (65-115); Osmolality Calculated 303 mOsm/kg (285-295); Sodium 134 mmol/L (136-145)
[2024-05-06 04:20] LABS: Anion Gap 17.3 (5-19); Potassium 4.3 mmol/L (3.5-5.1)
[2024-05-06] MEDS: methylPREDNISolone sod succ 40 mg/mL INJ IVP ×4 (04:26→20:49)
[2024-05-06] MEDS: ipratropium-albuterol 3 mL Neb INHALATION ×4 (07:57→20:17)
[2024-05-06] MEDS: budesonide 0.5 mg/2 mL Neb INHALATION ×2 (07:57→20:17)
[2024-05-06] MEDS: sucralfate 1 gm Tablet PO ×2 (08:34→16:34)
[2024-05-06] MEDS: pantoprazole DR 40 mg Tablet PO ×2 (08:34→16:35)
[2024-05-06] MEDS: aspirin 81 mg EC Tablet PO (08:34)
[2024-05-06] MEDS: heparin 5,000 unit/mL INJ 1 mL 5000 UNIT SUBCUT ×2 (08:35→20:49)
--- NOTE | 2024-05-06 12:53 | P.PN_ITS ---
Subjective 2 Subjective: 78-year-old female with a past medical h istory of congestive heart failure, hypertension, asthma/COPD overlap syndrome (at home on [facility]), chronic kidney disease stage 3, severe pulmonary hypertension, sleep apnea, pericardial effusion status post window, chronic hypoxic respiratory failure on 3 L baseline oxygen, and multiple other comorbidities presents with shortness of breath for 2 days. The patient noted worsening shortness of breath despite using her regular inhalers every day. Associated symptoms included chills. She denied cough or fever. In the emergency department, she was started on Solu-Medrol 40 mg IV q6hr, Pulmicort, and placed on BiPAP. Initial evaluation revealed: - Laboratory Findings: Hemoglobin 9.4, h ematocrit 32.2, platelets 112, sodium 145, potassium 4.6, chloride 107, bicarbonate 26, BUN 39, creatinine 3.2 (baseline around 2.7-3.0), magnesium 1.3. - Imaging Studies: Chest x-ray showed sm all bilateral pleural effusions. The patient is currently requiring 6 L of oxygen, significantly higher than her baseline of 3 L at home. 05/04 Overnight patient noted improvement in overall status however still required BIPAP overnight and remained on 6 lpm of o2 via NC. 05/05 Patient today was still having some shortness of breath. Was found to have oxygen saturation in mid to high 80s with slight exertion. Remain on 6 L. Previously was documented that the patient was on 3 L however when reviewed with patients outpatient oxygen company this stated that she was prescribed 6 L of O2 via nasal cannula. Denied any chest pain. No fever or chills overnight. No nausea vomiting. 05/06 Long discussion with patient and family regarding goals of care. Patient was wanting to go home however has still been having desaturation to 70s with minimal exertion.Discussed worsening renal failure as well. Patient again stated she would not consider dialysis Currently, still requiring 6Lpm. No fever, chills, nausea or vomiting. Family requested Hospice consult. Considering going home with hospice. Vitals/I&O/Wt Last Vital Signs Temp 97.9 F 05/06/24 11:17 Pulse 87 05/06/24 11:52 Resp 20 H 05/06/24 11:52 BP 140/69 05/06/24 11:17 Pulse Ox 88 L 05/06/24 11:52 O2 Del Method High Flow Nasal Cannula 05/06/24 11:52 O2 Flow Rate 6 05/06/24 11:52 FiO2 55 05/05/24 19:59 05/05/24 05/06/24 05/06/24 22:59 06:59 14:59 Intake Total 240 / 800 200 / 1000 240 / 240 Output Total 300 / 300 150 / 450 Balance -60 / 500 50 / 550 240 / 240 Weight last 48 hrs Weight 56.245 kg Weight 53.155 kg Physical Exam 2 Narrative: awake , alert , no distress PPERLA 6l O2 nc S1S2 RRR per report Lungs - jen ronchi No edema Data 05/06/24 02:41 05/06/24 02:41 A&P Assessment and plan (1) Hypercapnic respiratory failure: (2) COPD with acute exacerbation: (3) Acute on chronic renal failure: Qualifiers: Acute renal failure type: unspecified Chronic kidney disease stage: u nspecified stage Qualified Code(s): N17.9 - Acute kidney failure, unspecified; N18.9 - Chronic kidney disease, unspecified (4) Hypertension: Qualifiers: Hypertension type: resistant hypertension Qualified Code(s): I1A.0 - Resistant hypertension (5) GERD (gastroesophageal reflux disease): Plan Acute on chronic Hypoxic Respiratory Failure / COPD exacerbation - Likely exacerbation of underlying COPD/asthma overlap syndrome, requiring increased oxygen support and BIPAP - Currently on 6L via NC - Solu-medrol 40 mg IV q6hr - Pulmicort 0.5 BID - DuoNeb QID Plan: 05/05 Patient remained off BiPAP overnight however O2 requirements remained around 5-6 L by nasal cannula. In review is patients DME patient was prescribed 6 L of O2 via nasal cannula. It is not clear if she was wearing 3 L at home. Currently still is getting short of breath with any minimal exertion. Repeat chest x-ray was performed which did not show any significant signs of fluid overload. At this time will continue her on Solu-Medrol as ordered. Attempt to deescalate as her O2 requirements improved. Addition will continue her on Pulmicort. If any change in mental status or respiratory status will need a chest x-ray /ABGs repeated. 05/06 No significant change from yesterday. Remain on 6 L with oxygen saturations ranging from a 85 to low 90s. Patient did not appear to be in respiratory distress however. Chest x-ray yesterday did not show significant volume overload. Continued on Solu-Medrol in addition to DuoNeb treatments Acute on chronic stage IV Kidney disease - Creatinine elevated to 3.2 from baseline of 2.7-3.0, likely pre-renal in the setting of acute illness. - Nephrology follow-up as previously scheduled for next Wednesday. Plan: 05/05 Nephrology was consulted today due to progression of renal dysfunction with a creatinine that increased to 4.0. Higher than patients baseline. She did not appear to be volume overloaded however. Unfortunately urine output has not been monitor and recorded. Will need to strictly monitor input and output. Repeat BMP in a.m.. Further recommendations as per Nephrology. 05/06 Noted to have continued worsening of renal function with a creatinine of 4.2 today. Discussed again with patient and family regarding risks versus benefit of dialysis and again patient confirmed that she would not consider dialysis and family at bedside and daughter on the phone were both in agreement with this. Congestive Heart Failure - Underlying history of congestive heart failure, currently no acute decompensation. Plan: 1. Monitor daily volume status while off diuretics. No change to plan Disposition Likely goals of care discussion today with patient and family. Wanting to proceed with hospice at home however wanted information regarding level of services prior to this. Hospice consult was placed. PDMP PDMP Reviewed: Not Reviewed Attestations 2 Medical Necessity Statement*: Given patients respiratory distress requiring Solu-Medrol IV and now worsening renal failure will remain in hospital for an additional night. Coding Level of Care Code Acute Code for [facility] Diagnoses Hypercapnic respiratory failure J96.92 COPD with acute exacerbation J44.1 Acute on chronic renal failure N17.9; N18.9 Acute renal failure type: unspecified Chronic kidney disease stage: unspecified stage Resistant hypertension I1A.0 Hypertension type: resistant hypertension GERD (gastroesophageal reflux disease) K21.9
--- NOTE | 2024-05-06 14:11 | P.PN_ITS ---
Subjective 2 Subjective: on 6L o2 Medications: Reviewed: Yes Vitals/I&O/Wt Last Vital Signs Temp 97.9 F 05/06/24 11:17 Pulse 87 05/06/24 11:52 Resp 20 H 05/06/24 11:52 BP 140/69 05/06/24 11:17 Pulse Ox 88 L 05/06/24 11:52 O2 Del Method High Flow Nasal Cannula 05/06/24 11:52 O2 Flow Rate 6 05/06/24 11:52 FiO2 55 05/05/24 19:59 05/05/24 05/06/24 05/06/24 22:59 06:59 14:59 Intake Total 240 / 800 200 / 1000 240 / 240 Output Total 300 / 300 150 / 450 Balance -60 / 500 50 / 550 240 / 240 Weight last 48 hrs Weight 56.245 kg Weight 53.155 kg Physical Exam 2 Narrative: awake , alert , no distress PPERLA 6l O2 nc S1S2 RRR per report Lungs - jen ronchi No edema Data 05/06/24 02:41 05/06/24 02:41 A&P Assessment and plan (1) CKD stage 4 secondary to hypertension: Plan 1. Acute on chronic kidney disease stage IV: Baseline creatinine in the 2-3 range patient now has a CANDICE with a creatinine up to 4 range . Patient always had fluctuating creatinine levels from 2-4 range based on her volume status. -UA with 2+ protein and Neg blood . - will check Urine eltrolytes , UPCR - Prior serological workup done in March: Normal complements negative ANCA, ROSE, GBM antibodies negative, blmy-srymfk-biiahduk antibodies negative -Patient has elevation of free kappa and lambda light chains but the ratio is normal.-Arrange hematology evaluate as outpatient -Renal function off diuretics for now, Discussed with patient and patient's daughter:-Do not wish to initiate dialysis. 2.Acute on chronic respiratory failure: Multifactorial in the setting of COPD, dependent, history of ChF and pulmonary hypertension -Getting IV steroids and nebulizer treatments -Will give diuretics as needed 3. 3. Anemia check iron studies will consider doing KIMANI 4. 4. History of CHF: 60% has grade 3/4 diastolic dysfunction Pt transitioning to Hospice will sign off Patient evaluated using audiovisual cart. Time spent 40 minutes PDMP PDMP Reviewed: Not Reviewed Attestations 2 Medical Necessity Statement*: per bruce Coding Level of Care Code Acute Code for Chg Fwd Diagnoses CKD stage 4 secondary to hypertension I12.9; N18.4
[2024-05-06] MEDS: gabapentin 300 mg Capsule PO (16:35)
[2024-05-07] VITALS (13 sets, daily range): BP systolic 115–151; BP diastolic 57–63; PULSE 77–104; RESP 16–23; TEMP 36.4–36.7; O2SAT 86–94
[2024-05-07] MEDS: HYDROcodone-acetaminophen 10-325 mg Tablet 1 TAB PO (02:31)
[2024-05-07] MEDS: methylPREDNISolone sod succ 40 mg/mL INJ IVP ×3 (03:07→18:21)
[2024-05-07 03:48] LABS: Basophils % 0.1 %; Hematocrit 30.8 % (36-47); Lymphocytes % 0.3 %; Mean Corpuscular HGB Conc 29.9 g/dL (30-55); Mean Corpuscular Hemoglobin 28.9 pg (27-33); Mean Corpuscular Volume 96.9 fl (85-98); Mean Platelet Volume 12.7 fL (7.4-10.4); Monocytes # 0.3 10^3/uL (0.2-0.9); Monocytes % 2.6 %; Neutrophils # 10.48 10^3/uL (1.8-7.7); Neutrophils % 95.5 %; Nucleated Red Blood Cells % 0.2 %; Platelet Count 151 10^3/cmm (157-399); Red Blood Count 3.18 10^6/uL (3.85-5.65); Red Cell Distribution Width 16.2 % (12.1-15.1); White Blood Count 10.98 10^3/uL (3.29-11.43)
[2024-05-07 04:00] LABS: Anion Gap 19.7 (5-19); Calcium 9.7 mg/dL (8.5-10.5); Carbon Dioxide 20 mmol/L (22-29); Chloride 102 mmol/L (98-107); Creatinine Clr Calc Pharmacy 8.7431; Glucose 170 mg/dL (65-115); Osmolality Calculated 313 mOsm/kg (285-295); Potassium 4.7 mmol/L (3.5-5.1); Sodium 137 mmol/L (136-145)
[2024-05-07 04:13] LABS: Blood Urea Nitrogen 83 mg/dL (8-23)
[2024-05-07] MEDS: budesonide 0.5 mg/2 mL Neb INHALATION ×2 (07:55→20:24)
[2024-05-07] MEDS: ipratropium-albuterol 3 mL Neb INHALATION ×3 (07:55→20:24)
[2024-05-07] MEDS: pantoprazole DR 40 mg Tablet PO ×2 (09:22→17:52)
[2024-05-07] MEDS: aspirin 81 mg EC Tablet PO (09:22)
[2024-05-07] MEDS: sucralfate 1 gm Tablet PO ×2 (09:22→17:51)
--- NOTE | 2024-05-07 10:53 | P.PN_ITS ---
Subjective 2 Subjective: SOB in bed sitting up. no n/v/f/c/zamora/d Medications: Reviewed: Yes Medication Review Details: Current Medications Acetaminophen (Acetaminophen 325 Mg Tablet) 650 mg PO Q6H PRN PRN Reason: Mild/Mod Pain Or Temp >/= 101 Last Admin: 05/05/24 08:33 Dose: 650 mg Hydrocodone Bitart/Acetaminophen (Hydrocodone-Acetaminophen 10-325 Mg Tablet) 1 tab PO Q6H PRN PRN Reason: Pain Last Admin: 05/07/24 02:31 Dose: 1 tab Albuterol/Ipratropium (Ipratropium-Albuterol 3 Ml Neb) 3 ml INHALATION QID.RESPIRATORY JASBIR Last Admin: 05/07/24 07:55 Dose: 3 ml Aspirin (Aspirin 81 Mg Ec Tablet) 81 mg PO DAILY JASBIR Last Admin: 05/07/24 09:22 Dose: 81 mg Benzonatate (Benzonatate 100 Mg Capsule) 200 mg PO TID PRN PRN Reason: COUGH Budesonide (Budesonide 0.5 Mg/2 Ml Neb) 0.5 mg INHALATION BID.RESPIRATORY JASBIR Last Admin: 05/07/24 07:55 Dose: 0.5 mg Calcium Carbonate (Calcium Carbonate 500 Mg Chew Tablet) 1,000 mg PO Q4H PRN PRN Reason: DYSPEPSI Fluticasone Propionate (Fluticasone Nasal [place] 16gm Btl) 2 spray NASAL DAILY JASBIR Gabapentin (Gabapentin 300 Mg Capsule) 300 mg PO QPM JASBIR Last Admin: 05/06/24 16:35 Dose: 300 mg Guaifenesin (Guaifenesin 600 Mg Tablet) 1,200 mg PO BID PRN PRN Reason: congestion Heparin Sodium (Porcine) (Heparin 5,000 Unit/Ml Inj 1 Ml) 5,000 unit SUBCUT Q12H JASBIR Last Admin: 05/06/24 20:49 Dose: 5,000 unit Hydralazine HCl (Hydralazine 20 Mg/Ml Inj 1 Ml) 10 mg IVP Q4H PRN PRN Reason: SBP>180mmHg or DBP>110mmHG Methylprednisolone Sodium Succinate (Methylprednisolone Sod Succ 40 Mg/Ml Inj) 40 mg IVP Q6H JASBIR Last Admin: 05/07/24 03:07 Dose: 40 mg Ondansetron HCl (Ondansetron 2 Mg/Ml Sdv 2 Ml) 4 mg IVP Q8H PRN PRN Reason: vomiting, or N/V if npo Pantoprazole Sodium (Pantoprazole Dr 40 Mg Tablet) 40 mg PO BID COUNTS INCLUDE 234 BEDS AT THE [facility] Last Admin: 05/07/24 09:22 Dose: 40 mg Phenol (Phenol Oral [place] 177 Ml) 3 spray MUCOUS MEM Q2H PRN PRN Reason: SORE THROAT Last Admin: 05/05/24 21:16 Dose: 3 spray Sucralfate (Sucralfate 1 Gm Tablet) 1 gm PO BID COUNTS INCLUDE 234 BEDS AT THE [facility] Last Admin: 05/07/24 09:22 Dose: 1 gm Vitals/I&O/Wt Last Vital Signs Temp 97.8 F 05/07/24 07:15 Pulse 81 05/07/24 07:55 Resp 16 05/07/24 07:55 BP 135/61 05/07/24 07:15 Pulse Ox 86 L 05/07/24 07:55 O2 Del Method Oxymask 05/07/24 07:55 O2 Flow Rate 5 05/07/24 07:55 FiO2 55 05/06/24 23:10 05/06/24 05/07/24 05/07/24 22:59 06:59 14:59 Intake Total 200 / 200 Output Total 350 / 350 300 / 650 Balance -350 / 250 -300 / -50 200 / 200 Weight last 48 hrs Weight 57.334 kg Weight 56.245 kg Physical Exam 2 Narrative: awake and alert, interactive VS noted, hypoxic heent- nc/at neck supple lungs wheezes heart reg abd soft, nt, nd, + bs ext no edema Data 05/07/24 02:13 05/07/24 02:13 A&P Assessment and plan (1) CKD stage 4 secondary to hypertension: Plan 1. Acute on chronic kidney disease stage IV: Baseline creatinine in the 2-3 range patient now has a CANDICE with a creatinine up to 4 range . Patient always had fluctuating creatinine levels from 2-4 range based on her volume status. -UA with 2+ protein and Neg blood . - will check Urine eltrolytes , UPCR - Prior serological workup done in March: Normal complements negative ANCA, ROSE, GBM antibodies negative, wjxx-hryfgm-jqaxsent antibodies negative -Renal function off diuretics for now, Discussed with patient and patient's daughter. 2.Acute on chronic respiratory failure: Multifactorial in the setting of COPD, dependent, history of ChF and pulmonary hypertension -Getting IV steroids and nebulizer treatments -give diuretics as needed 3. Anemia check iron studies will consider doing KIMANI 4. History of CHF: 60% has grade 3/4 diastolic dysfunction 5. hypercapneic resp acidosis as per medicine Pt transitioning to Hospice will sign off Patient evaluated using audiovisual cart. PDMP PDMP Reviewed: Not Reviewed Attestations 2 Medical Necessity Statement*: hypercapneia, CANDICE Time Spent in Patient Care: 16 - 35 minutes Coding Level of Care Code Acute Code for Chg Fwd Diagnoses CKD stage 4 secondary to hypertension I12.9; N18.4
[2024-05-07] MEDS: heparin 5,000 unit/mL INJ 1 mL 5000 UNIT SUBCUT ×2 (12:22→21:19)
--- NOTE | 2024-05-07 13:28 | P.PN_ITS ---
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 The patient noted worsening shortness of breath despite using her regular inhalers every day. Associated symptoms included chills. She denied cough or fever. In the emergency department, she was started on Solu-Medrol 40 mg IV q6hr, Pulmicort, and placed on BiPAP. Initial evaluation revealed: - Laboratory Findings: Hemoglobin 9.4, h ematocrit 32.2, platelets 112, sodium 145, potassium 4.6, chloride 107, bicarbonate 26, BUN 39, creatinine 3.2 (baseline around 2.7-3.0), magnesium 1.3. - Imaging Studies: Chest x-ray showed sm all bilateral pleural effusions. The patient is currently requiring 6 L of oxygen, significantly higher than her baseline of 3 L at home. 05/04 Overnight patient noted improvement in overall status however still required BIPAP overnight and remained on 6 lpm of o2 via NC. 05/05 Patient today was still having some shortness of breath. Was found to have oxygen saturation in mid to high 80s with slight exertion. Remain on 6 L. Previously was documented that the patient was on 3 L however when reviewed with patients outpatient oxygen company this stated that she was prescribed 6 L of O2 via nasal cannula. Denied any chest pain. No fever or chills overnight. No nausea vomiting. 05/06 Long discussion with patient and family regarding goals of care. Patient was wanting to go home however has still been having desaturation to 70s with minimal exertion.Discussed worsening renal failure as well. Patient again stated she would not consider dialysis Currently, still requiring 6Lpm. No fever, chills, nausea or vomiting. Family requested Hospice consult. Considering going home with hospice. 05/07 Patient has been having worsening respiratory distress overnight and sometimes very hypoxic with minimal exertion. Was on mask - 10L. Slight conversational dyspnea was noted. again discussed patients goals of care with her and her daughter on the phone. Discussed code status and patient wished to be DNR /DNI. Patients daughter who lives in [place] is driving to [place] today to assist in arranging hospice at home. Vitals/I&O/Wt Last Vital Signs Temp 97.9 F 05/07/24 11:24 Pulse 99 05/07/24 12:50 Resp 18 05/07/24 12:37 BP 151/63 05/07/24 11:24 Pulse Ox 86 L 05/07/24 12:37 O2 Del Method High Flow Nasal Cannula 05/07/24 12:37 O2 Flow Rate 10 05/07/24 12:37 FiO2 55 05/06/24 23:10 05/06/24 05/07/24 05/07/24 22:59 06:59 14:59 Intake Total 400 / 400 Output Total 350 / 350 300 / 650 Balance -350 / 250 -300 / -50 400 / 400 Weight last 48 hrs Weight 57.334 kg Weight 56.245 kg Physical Exam 2 Narrative: awake , alert , Mild distress PPERLA 6l O2 nc S1S2 RRR per report Lungs - jen ronchi No edema Data 05/07/24 02:13 05/07/24 02:13 A&P Assessment and plan (1) Hypercapnic respiratory failure: (2) COPD with acute exacerbation: (3) Acute on chronic renal failure: Qualifiers: Acute renal failure type: unspecified Chronic kidney disease stage: u nspecified stage Qualified Code(s): N17.9 - Acute kidney failure, unspecified; N18.9 - Chronic kidney disease, unspecified (4) Hypertension: Qualifiers: Hypertension type: resistant hypertension Qualified Code(s): I1A.0 - Resistant hypertension (5) GERD (gastroesophageal reflux disease): Plan Acute on chronic Hypoxic Respiratory Failure / COPD exacerbation - Likely exacerbation of underlying COPD/asthma overlap syndrome, requiring increased oxygen support and BIPAP - Currently on 6L via NC - Solu-medrol 40 mg IV q6hr - Pulmicort 0.5 BID - DuoNeb QID Plan: 05/05 Patient remained off BiPAP overnight however O2 requirements remained around 5-6 L by nasal cannula. In review is patients DME patient was prescribed 6 L of O2 via nasal cannula. It is not clear if she was wearing 3 L at home. Currently still is getting short of breath with any minimal exertion. Repeat chest x-ray was performed which did not show any significant signs of fluid overload. At this time will continue her on Solu-Medrol as ordered. Attempt to deescalate as her O2 requirements improved. Addition will continue her on Pulmicort. If any change in mental status or respiratory status will need a chest x-ray /ABGs repeated. 05/06 No significant change from yesterday. Remain on 6 L with oxygen saturations ranging from a 85 to low 90s. Patient did not appear to be in respiratory distress however. Chest x-ray yesterday did not show significant volume overload. Continued on Solu-Medrol in addition to DuoNeb treatments 05/07 Will attempt to wean patient back to nasal cannula if possible. Discussed patients advanced respiratory failure with minimal response which treatment since admission. She has been on Solu-Medrol 40 mg IV q.6 hours in addition to scheduled bronchodilator treatments however still remains very hypoxic and short of breath with minimal exertion. At this time the patient stated that she would not want to be intubated. Would like to focus on comfort. Acute on chronic stage IV Kidney disease - Creatinine elevated to 3.2 from baseline of 2.7-3.0, likely pre-renal in the setting of acute illness. - Nephrology follow-up as previously scheduled for next Wednesday. Plan: 05/05 Nephrology was consulted today due to progression of renal dysfunction with a creatinine that increased to 4.0. Higher than patients baseline. She did not appear to be volume overloaded however. Unfortunately urine output has not been monitor and recorded. Will need to strictly monitor input and output. Repeat BMP in a.m.. Further recommendations as per Nephrology. 05/06 Noted to have continued worsening of renal function with a creatinine of 4.2 today. Discussed again with patient and family regarding risks versus benefit of dialysis and again patient confirmed that she would not consider dialysis and family at bedside and daughter on the phone were both in agreement with this. 05/07 Discussed with Nephrology. Noted creatinine increased to 4.4 today. Patient reiterated her wishes against considering dialysis. Per Nephrology okay to give diuretics if necessary. Chest x-ray had not shown significant fluid overload. At this time will monitor labs. Congestive Heart Failure - Underlying history of congestive heart failure, currently no acute decompensation. Plan: 1. Monitoringdaily volume status while off diuretics. No change to plan Disposition Code status changed to a A.N.D. Hospice consulted. Will need to have family meeting with daughter tomorrow to decide on hospice company and arrange for home with hospice. PDMP PDMP Reviewed: Not Reviewed Attestations 2 Medical Necessity Statement*: Given patients respiratory distress requiring Solu-Medrol IV and now worsening renal failure will remain in hospital for an additional night. Coding Level of Care Code Acute Code for [facility] Fwd Diagnoses Hypercapnic respiratory failure J96.92 COPD with acute exacerbation J44.1 Acute on chronic renal failure N17.9; N18.9 Acute renal failure type: unspecified Chronic kidney disease stage: unspecified stage Resistant hypertension I1A.0 Hypertension type: resistant hypertension GERD (gastroesophageal reflux disease) K21.9
[2024-05-07] MEDS: metoprolol tartrate 25 mg Tablet PO (17:51)
[2024-05-07] MEDS: gabapentin 300 mg Capsule PO (17:52)
[2024-05-07] MEDS: ropinirole 0.25 mg Tablet 0.5 MG PO (21:17)
[2024-05-08] VITALS (7 sets, daily range): BP systolic 112–132; BP diastolic 53–73; PULSE 64–98; RESP 18–24; TEMP 36.5–36.9; O2SAT 88–92
[2024-05-08] MEDS: methylPREDNISolone sod succ 40 mg/mL INJ IVP ×2 (00:18→05:20)
[2024-05-08] MEDS: HYDROcodone-acetaminophen 10-325 mg Tablet 1 TAB PO (02:10)
--- NOTE | 2024-05-08 06:17 | P.PN_ITS ---
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 The patient noted worsening shortness of breath despite using her regular inhalers every day. Associated symptoms included chills. She denied cough or fever. In the emergency department, she was started on Solu-Medrol 40 mg IV q6hr, Pulmicort, and placed on BiPAP. Initial evaluation revealed: - Laboratory Findings: Hemoglobin 9.4, h ematocrit 32.2, platelets 112, sodium 145, potassium 4.6, chloride 107, bicarbonate 26, BUN 39, creatinine 3.2 (baseline around 2.7-3.0), magnesium 1.3. - Imaging Studies: Chest x-ray showed sm all bilateral pleural effusions. The patient is currently requiring 6 L of oxygen, significantly higher than her baseline of 3 L at home. 05/04 Overnight patient noted improvement in overall status however still required BIPAP overnight and remained on 6 lpm of o2 via NC. 05/05 Patient today was still having some shortness of breath. Was found to have oxygen saturation in mid to high 80s with slight exertion. Remain on 6 L. Previously was documented that the patient was on 3 L however when reviewed with patients outpatient oxygen company this stated that she was prescribed 6 L of O2 via nasal cannula. Denied any chest pain. No fever or chills overnight. No nausea vomiting. 05/06 Long discussion with patient and family regarding goals of care. Patient was wanting to go home however has still been having desaturation to 70s with minimal exertion.Discussed worsening renal failure as well. Patient again stated she would not consider dialysis Currently, still requiring 6Lpm. No fever, chills, nausea or vomiting. Family requested Hospice consult. Considering going home with hospice. 05/07 Patient has been having worsening respiratory distress overnight and sometimes very hypoxic with minimal exertion. Was on mask - 10L. Slight conversational dyspnea was noted. again discussed patients goals of care with her and her daughter on the phone. Discussed code status and patient wished to be DNR /DNI. Patients daughter who lives in [place] is driving to [place] today to assist in arranging hospice at home. 05/08 Family arrived. All questions answered. Wanting to proceed with hospice at home. Vitals/I&O/Wt Last Vital Signs Temp 97.8 F 05/08/24 04:00 Pulse 77 05/08/24 04:00 Resp 19 H 05/08/24 04:00 BP 132/53 05/08/24 04:00 Pulse Ox 90 05/08/24 04:00 O2 Del Method Oxymask 05/08/24 04:00 O2 Flow Rate 11 05/08/24 04:00 FiO2 65 05/07/24 20:26 05/07/24 05/07/24 05/08/24 14:59 22:59 06:59 Intake Total 400 / 400 480 / 880 Output Total 200 / 200 Balance 400 / 400 280 / 680 Weight last 48 hrs Weight 57.697 kg Weight 57.334 kg Physical Exam 2 Narrative: awake , alert , Mild distress PPERLA 6l O2 nc S1S2 RRR per report Lungs - jen ronchi No edema Data 05/07/24 02:13 05/07/24 02:13 A&P Assessment and plan (1) Hypercapnic respiratory failure: (2) COPD with acute exacerbation: (3) Acute on chronic renal failure: Qualifiers: Acute renal failure type: unspecified Chronic kidney disease stage: u nspecified stage Qualified Code(s): N17.9 - Acute kidney failure, unspecified; N18.9 - Chronic kidney disease, unspecified (4) Hypertension: Qualifiers: Hypertension type: resistant hypertension Qualified Code(s): I1A.0 - Resistant hypertension (5) GERD (gastroesophageal reflux disease): Plan UPDATE: 05/08 - NO change to above plan. Discussed with family and with CM/SW. Working on arranging home with hospice. Acute on chronic Hypoxic Respiratory Failure / COPD exacerbation - Likely exacerbation of underlying COPD/asthma overlap syndrome, requiring increased oxygen support and BIPAP - Currently on 6L via NC - Solu-medrol 40 mg IV q6hr - Pulmicort 0.5 BID - DuoNeb QID Plan: 05/05 Patient remained off BiPAP overnight however O2 requirements remained around 5-6 L by nasal cannula. In review is patients DME patient was prescribed 6 L of O2 via nasal cannula. It is not clear if she was wearing 3 L at home. Currently still is getting short of breath with any minimal exertion. Repeat chest x-ray was performed which did not show any significant signs of fluid overload. At this time will continue her on Solu-Medrol as ordered. Attempt to deescalate as her O2 requirements improved. Addition will continue her on Pulmicort. If any change in mental status or respiratory status will need a chest x-ray /ABGs repeated. 05/06 No significant change from yesterday. Remain on 6 L with oxygen saturations ranging from a 85 to low 90s. Patient did not appear to be in respiratory distress however. Chest x-ray yesterday did not show significant volume overload. Continued on Solu-Medrol in addition to DuoNeb treatments 05/07 Will attempt to wean patient back to nasal cannula if possible. Discussed patients advanced respiratory failure with minimal response which treatment since admission. She has been on Solu-Medrol 40 mg IV q.6 hours in addition to scheduled bronchodilator treatments however still remains very hypoxic and short of breath with minimal exertion. At this time the patient stated that she would not want to be intubated. Would like to focus on comfort. Acute on chronic stage IV Kidney disease - Creatinine elevated to 3.2 from baseline of 2.7-3.0, likely pre-renal in the setting of acute illness. - Nephrology follow-up as previously scheduled for next Wednesday. Plan: 05/05 Nephrology was consulted today due to progression of renal dysfunction with a creatinine that increased to 4.0. Higher than patients baseline. She did not appear to be volume overloaded however. Unfortunately urine output has not been monitor and recorded. Will need to strictly monitor input and output. Repeat BMP in a.m.. Further recommendations as per Nephrology. 05/06 Noted to have continued worsening of renal function with a creatinine of 4.2 today. Discussed again with patient and family regarding risks versus benefit of dialysis and again patient confirmed that she would not consider dialysis and family at bedside and daughter on the phone were both in agreement with this. 05/07 Discussed with Nephrology. Noted creatinine increased to 4.4 today. Patient reiterated her wishes against considering dialysis. Per Nephrology okay to give diuretics if necessary. Chest x-ray had not shown significant fluid overload. At this time will monitor labs. Congestive Heart Failure - Underlying history of congestive heart failure, currently no acute decompensation. Plan: 1. Monitoringdaily volume status while off diuretics. No change to plan PDMP PDMP Reviewed: Not Reviewed Attestations 2 Medical Necessity Statement*: May require an additional day in hospital while awaiting hospice at home arrangements. Coding Level of Care Code Acute Code for Chg Fwd Diagnoses Hypercapnic respiratory failure J96.92 COPD with acute exacerbation J44.1 Acute on chronic renal failure N17.9; N18.9 Acute renal failure type: unspecified Chronic kidney disease stage: unspecified stage Resistant hypertension I1A.0 Hypertension type: resistant hypertension GERD (gastroesophageal reflux disease) K21.9
[2024-05-08] MEDS: pantoprazole DR 40 mg Tablet PO (08:13)
[2024-05-08] MEDS: sucralfate 1 gm Tablet PO (08:13)
[2024-05-08] MEDS: metoprolol tartrate 25 mg Tablet PO (08:13)
[2024-05-08] MEDS: aspirin 81 mg EC Tablet PO (08:13)
[2024-05-08] MEDS: heparin 5,000 unit/mL INJ 1 mL 5000 UNIT SUBCUT (08:13)
[2024-05-08] MEDS: budesonide 0.5 mg/2 mL Neb INHALATION (08:43)
[2024-05-08] MEDS: ipratropium-albuterol 3 mL Neb INHALATION (08:43)
--- NOTE | 2024-05-10 17:16 | PM.DCS ---
Discharge Providers Date of Admission: 05/03/24 09:52 Date of Discharge: May 08, 2024 Attending Provider at Admission: Travis Alex MD Attending Provider at Discharge: Celina Herrera Consults: Hospice Primary Care Provider: Jj Monk MD Diagnoses at Discharge Discharge Diagnosis (1) Hypercapnic respiratory failure: Status: Acute Qualifiers: Chronicity: acute on chronic Qualified Code(s): J96.22 - Acute and chronic respiratory failure with hypercapnia (2) COPD with acute exacerbation: Status: Acute (3) Acute on chronic renal failure: Status: Acute Qualifiers: Acute renal failure type: unspecified Chronic kidney disease stage: unspecified stage Qualified Code(s): N17.9 - Acute kidney failure, unspecified; N18.9 - Chronic kidney disease, unspecified (4) Hypertension: Status: Acute Qualifiers: Hypertension type: resistant hypertension Qualified Code(s): I1A.0 - Resistant hypertension (5) GERD (gastroesophageal reflux disease): Status: Acute Qualifiers: Esophagitis bleeding: without hemorrhage Reason for Visit Reason for Visit: cough, weakness, back pain Hospital Course Hospital Course 78-year-old female with a past medical history of congestive heart failure, hypertension, asthma/COPD overlap syndrome (at home on [facility]), chronic kidney disease stage 3, severe pulmonary hypertension, sleep apnea, pericardial effusion status post window, chronic hypoxic respiratory failure on 3-6 L baseline oxygen who presented with shortness of breath for 2 days. The patient noted worsening shortness of breath despite using her regular inhalers every day. Associated symptoms included chills. She denied cough or fever. On admission, the patient was found to have hemoglobin 9.4, hematocrit 32.2, platelets 112, sodium 145, potassium 4.6, chloride 107, bicarbonate 26, BUN 39, creatinine 3.2 (baseline around 2.7-3.0), magnesium 1.3. Chest x-ray showed small bilateral pleural effusions. She was started on Solu-Medrol 40 mg IV q6hr, Pulmicort, and placed on BiPAP, requiring 6 L of oxygen, significantly higher than her baseline of 3 L at home. During her hospitalization, the patient received Solu-Medrol 40 mg IV q6hr, Pulmicort 0.5 BID, and DuoNeb QID for acute on chronic hypoxic respiratory failure/COPD exacerbation. She remained on 6 L oxygen via nasal cannula. Nephrology was consulted for acute on chronic stage IV kidney disease with creatinine elevated to 3.2 from baseline of 2.7-3.0. Creatinine continued to worsen, reaching 4.4. The patient confirmed she would not consider dialysis. She was monitored for congestive heart failure, with no acute decompensation noted. Goals of care discussions were held with the patient and family, focusing on comfort measures and arranging home hospice care. The patient wished to be DNR/DNI. At the time of discharge, the patient's oxygen requirements remained around 5-6 L by nasal cannula. She continued to have shortness of breath with minimal exertion and desaturation to 70s. Creatinine had increased to 4.4. The patient reiterated her wishes against considering dialysis and wanted to be home on hospice. The patient was discharged with instructions to follow up with home hospice care as arranged. The focus was on comfort measures. Physical Exam Narrative: date progress not on date of discharge Discharge Data Studies Completed and Pending Completed Studies During Hospitalization Category Date Time Status CXRP [XR chest 1V portable [id number]] Routine Exams 05/05/24 15:06 Completed CXRP [XR chest 1V portable [id number]] Stat Exams 05/02/24 15:49 Completed Radiology Impressions Chest X-Ray 05/05/24 15:06 IMPRESSION: Blunting of both costophrenic angles as above. Presumed resolution of pulmonary edema. Interval opacification in the left lower lung as noted above. Laboratory Results WBC 10.98 10^3/uL (3.29-11.43) 05/07/24 02:13 RBC 3.18 10^6/uL (3.85-5.65) L 05/07/24 02:13 Hgb 9.20 g/dL (11.27-16.99) L 05/07/24 02:13 Hct 30.8 % (36-47) L 05/07/24 02:13 MCV 96.9 fl (85-98) 05/07/24 02:13 MCH 28.9 pg (27-33) 05/07/24 02:13 MCHC 29.9 g/dL (30-55) L 05/07/24 02:13 RDW 16.2 % (12.1-15.1) H 05/07/24 02:13 Plt Count 151 10^3/cmm (157-399) L 05/07/24 02:13 MPV 12.7 fL (7.4-10.4) H 05/07/24 02:13 Neut % (Auto) 95.5 % 05/07/24 02:13 Lymph % (Auto) 0.3 % 05/07/24 02:13 [place] % (Auto) 2.6 % 05/07/24 02:13 Eos % (Auto) 0.0 % 05/07/24 02:13 Baso % (Auto) 0.1 % 05/07/24 02:13 Neut # (Auto) 10.48 10^3/uL (1.8-7.7) H 05/07/24 02:13 Lymph # (Auto) 0.0 10^3/uL (0.8-4.8) L 05/07/24 02:13 [place] # (Auto) 0.3 10^3/uL (0.2-0.9) 05/07/24 02:13 Eos # (Auto) 0.0 10^3/uL (0.0-0.8) 05/07/24 02:13 Baso # (Auto) 0.0 10^3/uL (0.0-0.1) 05/07/24 02:13 Nucleated RBC % (auto) 0.2 % 05/07/24 02:13 Nucleated RBCs # 0.0 /100WBC 05/07/24 02:13 Specimen Type Arterial 05/02/24 18:39 Sample Site Radial, left 05/02/24 18:39 ABG pH 7.26 (7.35-7.45) L 05/02/24 18:39 ABG pCO2 58.1 mmHg (35-45) H 05/02/24 18:39 ABG pO2 52.9 mmHg (80.0-100.0) L 05/02/24 18:39 ABG PO2/FiO2 Ratio 165 05/02/24 18:39 ABG HCO3 26.1 mmol/L (22-26) H 05/02/24 18:39 ABG O2 Saturation 88.0 05/02/24 18:39 ABG Base Excess -1.4 mmol/L (-2.0-2.0) 05/02/24 18:39 Sukumar Test Pos 05/02/24 18:39 A-a O2 Gradient 13.6 mmHg (5-10) H 05/02/24 18:39 Hematocrit 28.5 % (37-47) L 05/02/24 18:39 Hgb O2 Saturation 86.3 % (95-100) L 05/02/24 18:39 Carboxyhemoglobin 1.5 %THgb (0.4-20.1) 05/02/24 18:39 Methemoglobin 0.3 % (0.4-1.5) L 05/02/24 18:39 Total Hemoglobin 9.3 g/dL (12-16) L 05/02/24 18:39 Sodium 144.0 mmol/L (131-143) H 05/02/24 18:39 Potassium 4.1 mmol/L (3.5-5.0) 05/02/24 18:39 Glucose 99.0 mg/dL (70-115) 05/02/24 18:39 Ionized Calcium 1.3 mmol/L (1.1-1.4) 05/02/24 18:39 O2 Delivery Device Nc 05/02/24 18:39 O2 Liters/Min 3.0 % 05/02/24 18:39 FiO2 32.0 % 05/02/24 18:39 Punch Machine Operator ID glc 05/02/24 18:39 Sodium 137 mmol/L (136-145) 05/07/24 02:13 Potassium 4.7 mmol/L (3.5-5.1) 05/07/24 02:13 Chloride 102 mmol/L (98-107) 05/07/24 02:13 Carbon Dioxide 20 mmol/L (22-29) L 05/07/24 02:13 Anion Gap 19.7 (5-19) H 05/07/24 02:13 BUN 83 mg/dL (8-23) H* 05/07/24 02:13 Creatinine 4.4 mg/dL (0.5-0.9) H 05/07/24 02:13 GFR Calculation Not Reportable 05/07/24 02:13 Glucose 170 mg/dL (65-115) H 05/07/24 02:13 POC Glucose 232 mg/dL (70-110) H 05/03/24 11:44 Calculated Osmolality 313 mOsm/kg (285-295) H 05/07/24 02:13 Calcium 9.7 mg/dL (8.5-10.5) 05/07/24 02:13 Phosphorus 3.7 mg/dL (2.5-4.5) 05/03/24 03:17 Magnesium 1.3 mg/dL (1.7-2.3) L 05/03/24 03:17 Total Bilirubin 0.3 mg/dL (0.15-1.2) 05/02/24 17:28 AST 13 U/L (0-32) 05/02/24 17:28 ALT 13 U/L (0-33) 05/02/24 17:28 Alkaline Phosphatase 62 U/L (35-105) 05/02/24 17:28 Total Protein 6.6 g/dL (6.6-8.7) 05/02/24 17: Albumin 4.1 g/dL (3.5-5.2) 05/02/24 17:28 Globulin 2.5 g/dL (1.3-4.6) 05/02/24 17:28 Procalcitonin 0.38 ng/mL (0-0.5) 05/02/24 17:28 Urine Color Yellow (Yellow) 05/02/24 19:03 Urine Appearance Clear (CLEAR) 05/02/24 19:03 Urine pH 5.5 (5-7) 05/02/24 19:03 Ur Specific [place] 1.011 (1.005-1.030) 05/02/24 19:03 Urine Protein 2+ (Negative) A 05/02/24 19:03 Urine Glucose (UA) Negative (Normal) 05/02/24 19:03 Urine Ketones Negative (Negative) 05/02/24 19:03 Urine Blood Negative (Negative) 05/02/24 19:03 Urine Nitrate Negative (Negative) 05/02/24 19:03 Urine Bilirubin Negative (Negative) 05/02/24 19:03 Urine Urobilinogen 0.2 mg/dL (Negative) 05/02/24 19:03 Ur Leukocyte Esterase Negative (Negative) 05/02/24 19:03 Urine RBC 0-2 /hpf (0-2) 05/02/24 19:03 Urine WBC 0-5 /hpf (0-5) 05/02/24 19:03 Ur Squamous Epith Cells 0-5 /hpf (0-5) 05/02/24 19:03 Amorphous Sediment Not Reportable 05/02/24 19:03 Urine Bacteria None seen /hpf (NONE) 05/02/24 19:03 Hyaline Casts 2.05 /lpf 05/02/24 19:03 Coronavirus (PCR) Negative (Negative) 05/02/24 16:15 Influenza A (PCR) Negative (Negative) 05/02/24 16:15 Influenza Type B (PCR) Negative (Negative) 05/02/24 16:15 RSV (PCR) Negative (Negative) 05/02/24 16:15 Vitals Last Vital Signs Temp 98.5 F 05/08/24 12:00 Pulse 98 05/08/24 12:20 Resp 24 H 05/08/24 12:20 BP 112/73 05/08/24 12:00 Pulse Ox 90 05/08/24 12:20 O2 Del Method Oxymask 05/08/24 12:20 O2 Flow Rate 14 05/08/24 12:20 FiO2 65 05/07/24 20:26 Discharge Plan Discharge Patient Disposition: Hospice - Home Condition: Stable Prescriptions: Continued aspirin 81 mg tablet,delayed release (DR/EC) 81 mg PO DAILY hydrocodone-acetaminophen 10-325 mg tablet 1 tab PO Q6H PRN (Reason: Pain) (DME) Hinged Knee Brace See Rx Instructions .Route .MEDSUPPLY Qty: 1 0RF Rx Instructions: As directed (DME) GELY KNEE BRACE See Rx Instructions .Route .MEDSUPPLY Qty: 1 0RF Rx Instructions: As directed Lock at 30-60 degrees metoprolol tartrate 25 mg tablet 25 mg PO BID 30 Days Qty: 180 3RF (DME) Wheel Chair See Rx Instructions .Route .MEDSUPPLY Qty: 1 0RF Rx Instructions: As directed furosemide [Lasix] 20 mg tablet 20 mg PO BID Qty: 60 5RF ferrous sulfate [FeroSul] 325 mg (65 mg iron) tablet 325 mg PO DAILY ropinirole 0.5 mg tablet 0.5 mg PO QPM gabapentin 300 mg capsule 300 mg PO QPM sucralfate 1 gram tablet 1 g PO BID Qty: 60 0RF Breztri Aerosphere 160-9-4.8 mcg/actuation HFA aerosol inhaler 2 inh INHALATION DAILY Discontinued (DME) oxygen at 2/L min See Rx Instructions .Route .MEDSUPPLY Qty: 1 11RF Rx Instructions: As directed (DME) Oxygen NC 2-3 L/min See Rx Instructions .Route .MEDSUPPLY Qty: 1 0RF Rx Instructions: As directed amlodipine 10 mg tablet 10 mg PO DAILY Qty: 90 1RF prazosin 1 mg capsule 1 mg PO BID Qty: 180 0RF fluticasone propion-salmeterol [Advair HFA] 115-21 mcg/actuation HFA aerosol inhaler 2 puff INHALATION BID potassium chloride 10 mEq tablet extended release 10 meq PO DAILY lisinopril 40 mg tablet 10 mg PO DAILY No Action morphine concentrate 100 mg/5 mL (20 mg/mL) solution 20 mg sublingual DIRECTED PRN (Reason: Pain/SOB) 14 Days Qty: 30 0RF Rx Instructions: 0.25ml-1ml q1H PRN may increase to 0.5ml-1ml Q1H PRN bisacodyl 10 mg suppository 10 mg MA DAILY PRN (Reason: constipation) Qty: 5 0RF Rx Instructions: 1 suppository per rectum every day PRN for constipation. diphenhydramine HCl 25 mg tablet 25 mg PO Q4H Qty: 5 0RF Rx Instructions: Take one tablet by mouth every 4 hours as needed for allergic reaction including: Rash and/or Itching hydroxyzine HCl 25 mg tablet 25 mg PO TID PRN (Reason: Itching) Qty: 5 0RF Rx Instructions: Take 1 table by mouth as needed three times a day for itching atropine 1 % drops 4 drp sublingual Q4H PRN (Reason: secretions) Qty: 5 0RF Rx Instructions: 4 drops SL q 4 hours PRN for terminal congestion/excessive secretions. ondansetron 4 mg tablet,disintegrating 4 mg translingual Q4H PRN (Reason: nausea) Qty: 5 0RF Rx Instructions: Dissolve 1 tablet under tongue every 4 hours PRN for nausea lorazepam 2 mg/mL concentrate 2 mg sublingual Q4H PRN (Reason: Anxiety/Seizure) Qty: 30 0RF Rx Instructions: 0.25ml-1ml q4H PRN Anxiety/Seizure Start 0.25ml may increase to 0.5ml-1ml q4H Discharge Orders: Discharge Order (Routine); Ordered 05/08/24 Ordered By: Celina Herrera Referrals: [facility] [Outside] Jj Monk MD [Primary Care Provider] - 05/12/24 9:30 am ( ) Discharge Diet: Usual diet Discharge Activity: Increase activity as tolerated Patient Instructions: Dexamethasone (By mouth), Acute Kidney Injury (DC), COPD (Chronic Obstructive Pulmonary Disease) (ED), GERD (Gastroesophageal Reflux Disease) (DC), Opioid Safety, Pain Management Activity Restrictions/Additional Instructions: Thank you for choosing [facility] for your healthcare needs today. Please realize this is an emergency room and that we are providing you with a medical screening exam and this may not be complete and all inclusive of all the testing and or work up that you may need to determine your ailment or severity of your illness. You have been screened and evaluated and felt safe for discharge. Health conditions do change or evolve sometimes and as such it is important that you follow up with your Primary Doctor to be re checked, 3-5 days is a general good time frame for follow up. You are always welcome to return to the ED for re assessment if your symptoms are worsening or you have new concerns Discharge Attestations Time Spent in Discharge Care*: greater than 30 min Status at Discharge: Cognitive status at discharge: cognitively intact, Behavioral status at discharge: dependent in ADL's, Functional status at discharge: bed bound, Overall status at discharge: patient is not back to baseline Quality Metrics Clinical Quality Measures [ No reported AMI, CVA or VTE this stay] Coding Level of Care Code Acute Code for Chg Fwd Diagnoses Acute on chronic respiratory failure with hypercapnia J96.22 Chronicity: acute on chronic COPD with acute exacerbation J44.1 Acute on chronic renal failure N17.9; N18.9 Acute renal failure type: unspecified Chronic kidney disease stage: unspecified stage Resistant hypertension I1A.0 Hypertension type: resistant hypertension GERD (gastroesophageal reflux disease) K21.9 Esophagitis bleeding: without hemorrhage
== END 2024-05-08 14:32 | disposition hospice, home (50) | DRG 189 ==
LOC: ER 21:44 → ER IP 21:49 → CSU 05-03 07:52
PROVIDERS: Emergency Medicine; Family Medicine; Admitting Provider Internal Medicine; Emergency Provider Emergency Medicine; PCP Family Medicine; Visit Provider Hospitalist
DX: J96.22 Acute and chronic respiratory failure with hypercapnia (principal); J44.1 Chronic obstructive pulmonary disease with (acute) exacerbation; N17.9 Acute kidney failure, unspecified; N18.4 Chronic kidney disease, stage 4 (severe); I31.39 Other pericardial effusion (noninflammatory); J96.21 Acute and chronic respiratory failure with hypoxia; I13.10 Hypertensive heart and chronic kidney disease without heart failure, with stage 1 through stage 4 chronic kidney disease, or unspecified chronic kidney disease; K21.9 Gastro-esophageal reflux disease without esophagitis; I1A.0 Resistant hypertension; I27.20 Pulmonary hypertension, unspecified; G47.30 Sleep apnea, unspecified; Z66 Do not resuscitate; G89.29 Other chronic pain; M54.41 Lumbago with sciatica, right side; F41.9 Anxiety disorder, unspecified; Z99.81 Dependence on supplemental oxygen; Z79.51 Long term (current) use of inhaled steroids; Z79.82 Long term (current) use of aspirin; Z79.891 Long term (current) use of opiate analgesic
CPT/HCPCS: 36415; 36416; 36600; 71045; 80048; 80051; 80053; 81001; 82330; 82805; 82962; 83735; 84100; 84145; 85025; 87637; 94640; 94660; 96372; 99291; G0378; J1100; J1644; J2919; J3475; J7626; Q3014